=== PATIENT | female | born 1955 | race Caucasian/White ===

== ENCOUNTER 2017-05-01 14:01 | Emergency (ER) | payer OTHER ==
[~2017-05-01] VITALS: Ht 157.5 cm; Wt 72.6 kg
[~2017-05-01 14:01] MED LIST: ALLO100T21 PO; CALC0.5S6 PO; CARV3.122 PO; CLOP75TA PO; ERGO2000 PO; FURO-570 PO; NIFE10SG6 PO; NITR0.4T2 SL; OMEP20TC12 PO; OXYM15SP NS; SIMV40TA1 PO
[2017-05-01 14:14] VITALS: BP 138/66
--- NOTE | 2017-05-01 14:25 | NUR ---
PATIENT PRESENTS TO ED WITH c/o facial swelling 2 wks with fullness sensation to throat--- . PT STATES cath and angio 2 wks ago---full clear speech with no accessory muscle use noted--- . DENIES N/V/D; SKIN IS PINK/WARM/DRY; AAOX4 WITH EVEN AND STEADY GAIT; LUNGS rhonchi to prema bases BL; HR EVEN AND REGULAR; PT DENIES ANY FEVER, CP, SOB, OR COUGH AT THIS TIME; PATIENT STATES PAIN OF 0/10 AT THIS TIME; VSS; PATIENT POSITIONED FOR COMFORT; HOB ELEVATED; BEDRAILS UP X2; BED DOWN. ER MD MADE AWARE OF PT STATUS.
--- NOTE | 2017-05-01 15:48 | NUR ---
blood collected by lab
--- NOTE | 2017-05-01 16:04 | NUR ---
ultrasound at bedside
[2017-05-01 16:05] LABS: BASOPHILS # (AUTO) 0.1 K/uL (0.00-0.22); BASOPHILS % (AUTO) 2.1 % (0.0-2.0); EOSINOPHILS # (AUTO) 0.3 K/uL (0-0.4); EOSINOPHILS % (AUTO) 4.7 % (0.0-4.0); HEMATOCRIT 27.7 % (36-48); HEMOGLOBIN 8.7 g/dL (12.0-16.0); LYMPHOCYTES # (AUTO) 1.4 K/uL (2.5-16.5); LYMPHOCYTES % (AUTO) 22.2 % (20.5-51.1); MEAN CORPUSCULAR HEMOGLOBIN 28 pg (27-31); MEAN CORPUSCULAR HGB CONC 32 g/dL (33-37); MEAN CORPUSCULAR VOLUME 88 fL (80-94); MONOCYTES # (AUTO) 0.6 K/uL (0.8-1.0); MONOCYTES % (AUTO) 10.1 % (1.7-9.3); NEUTROPHILS # (AUTO) 3.8 K/uL (1.8-7.7); NEUTROPHILS % (AUTO) 60.9 % (42.2-75.2); PLATELET COUNT (AUTO) 261 K/uL (140-450); RED BLOOD CELL COUNT(AUTO) 3.15 MIL/uL (4.20-5.40); RED CELL DISTRIBUTION WIDTH 14.9 % (11.6-13.7); WHITE BLOOD COUNT (AUTO) 6.2 K/uL (4.8-10.8)
[2017-05-01 16:08] LABS: ANION GAP 9.9 (8-16); CARBON DIOXIDE 33.4 mmol/L (21-32); CREATININE 2.6 mg/dL (0.6-1.3); POTASSIUM 3.3 mmol/L (3.5-5.1)
[2017-05-01 16:14] LABS: ALBUMIN 3.1 g/dL (3.4-5.0); TOTAL BILIRUBIN 0.2 mg/dL (0.0-1.0)
[2017-05-01 16:49] LABS: CREATINE KINASE MB 0.6 ng/mL (0-3.6)
--- NOTE | 2017-05-01 17:29 | NUR ---
CONTINUES TO WAIT FOR DISPO---DENIES SOB AT THIS TIME
--- NOTE | 2017-05-01 18:10 | NUR ---
SPOKE WITH PT
--- NOTE | 2017-05-01 19:20 | NUR ---
Patient discharged with v/s stable. Written and verbal after care instructions given and explained. Patient alert, oriented and verbalized understanding of instructions. Wheel Chair Assisted with to car. All questions addressed prior to discharge. ID band removed. Patient advised to follow up with PMD. Rx of LASIX 20MG given. Patient educated on indication of medication including possible reaction and side effects. Opportunity to ask questions provided and answered.
[2017-05-01 19:41] VITALS: BP 157/63
== END 2017-05-01 19:20 | disposition home or self-care (01) ==
LOC: MED 14:01
DX: R60.9 Edema, unspecified (principal); I12.0 Hypertensive chronic kidney disease with stage 5 chronic kidney disease or end stage renal disease; E11.22 Type 2 diabetes mellitus with diabetic chronic kidney disease; N18.6 End stage renal disease; R06.00 Dyspnea, unspecified; J45.909 Unspecified asthma, uncomplicated; Z99.2 Dependence on renal dialysis; Z79.899 Other long term (current) drug therapy
CPT/HCPCS: 36415; 71045; 80053; 82550; 82553; 83880; 84484; 85025; 93005; 93970; 99285; Q0092

== ENCOUNTER 2017-05-02 14:07 | Emergency (ER) | payer OTHER ==
[~2017-05-02] VITALS: Ht 154.9 cm; Wt 76.8 kg
[2017-05-02 14:35] VITALS: BP 113/55
--- NOTE | 2017-05-02 16:54 | NUR ---
PT AMBULATED TO BED 11
--- NOTE | 2017-05-02 16:54 | NUR ---
patient amb. to bed #11
--- NOTE | 2017-05-02 17:00 | NUR ---
Pt presents to ED c/o epigastric burning pain 09/25 starting at stomach and radiating up esophagus to throat x1 day. VSS. Positioned in bed for comfort. at bedside for support. ER MD aware. Continue to monitor.
--- NOTE | 2017-05-02 17:10 | NUR ---
Note terry in EDM - 05/02/17 at 1917 by HECTOR Called warehouse production worker brittney. No fluconazole available in [facility] at this time. Pharmacy closed.
--- NOTE | 2017-05-02 19:19 | NUR ---
REPORT RECEIVED FROM ANDRES BOSCH RN
--- NOTE | 2017-05-02 19:25 | NUR ---
REPORT FROM RONAN CAMPOS
--- NOTE | 2017-05-02 19:29 | NUR ---
Hina stewart in [facility] - 05/02/17 at 1953 by BILL REPORT RECEIVED FROM RONAN CAMPOS
[2017-05-02] MEDS ORDERED: LORATADINE 10 MG TAB PO ONE (19:40)
[2017-05-02 20:35] VITALS: BP 138/62
--- NOTE | 2017-05-02 20:36 | NUR ---
Patient discharged with v/s stable. Written and verbal after care instructions given and explained. Patient alert, oriented and verbalized understanding of instructions. Ambulatory with steady gait. All questions addressed prior to discharge. ID band removed. Patient advised to follow up with PMD. Rx of LORATADINE 10MG DAILY given. Patient educated on indication of medication including possible reaction and side effects. Opportunity to ask questions provided and answered.
== END 2017-05-02 20:36 | disposition home or self-care (01) ==
LOC: MED 14:07
DX: R13.10 Dysphagia, unspecified (principal); R07.0 Pain in throat; J45.909 Unspecified asthma, uncomplicated; Z86.73 Personal history of transient ischemic attack (TIA), and cerebral infarction without residual deficits; E11.9 Type 2 diabetes mellitus without complications; K21.9 Gastro-esophageal reflux disease without esophagitis; I10 Essential (primary) hypertension
CPT/HCPCS: 81002; 82948; 99282

== ENCOUNTER 2017-06-01 07:36 | Inpatient (IN) | payer OTHER ==
[~2017-06-01] VITALS: Ht 162.6 cm; Wt 78.0 kg
--- NOTE | 2017-06-01 07:36 | NUR ---
PATIENT PRESENTS TO ED WITH PT BIBA EMS FOR RESP DISTTRESS. PT GIVEN CPAP IN FEILD THEN SWITHCHED TO BIPAP IN ER. PT APPEARS DIAPHORETIC, PALE, COOL TO TOUCH HI FOWLERS TRIPODING 1 WORD SPEECH EDEMA NOTED IN LOWER EXTREMITIES BS 173 . DENIES N/V/D; SKIN IS PINK/WARM/DRY; AAOX4 ; LUNGS DIMISHED PT DENIES ANY FEVER, CP OR COUGH AT THIS TIME; PATIENT STATES PAIN OF 0/10 AT THIS TIME; VSS; PATIENT POSITIONED FOR COMFORT; HOB ELEVATED; BEDRAILS UP X2; BED DOWN. ER MD MADE AWARE OF PT STATUS.
[2017-06-01 07:42] VITALS: BP 193/101
--- NOTE | 2017-06-01 07:57 | NUR ---
CXR AT BEDSIDE
[2017-06-01] MEDS ORDERED: ASPI81EC19 PO (08:12)
[2017-06-01] MEDS ORDERED: CARV6.252 PO (08:12)
[2017-06-01] MEDS ORDERED: LORA10TA19 PO (08:12)
--- NOTE | 2017-06-01 08:12 | NUR ---
ABG RESULTS GIVEN TO VLADIMIR HACKETT. NO NEW ORDERS GIVEN.
[2017-06-01] MEDS ORDERED: SEVE800T6 PO (08:20)
[2017-06-01] MEDS ORDERED: NIFE60TE5 PO (08:20)
[2017-06-01] MEDS ORDERED: VITA1TAB44 PO (08:20)
[2017-06-01] MEDS ORDERED: INSU10SU8 SUBQ (08:20)
[2017-06-01] MEDS ORDERED: ONDANSETRON 4 MG/2 ML VIAL IVP ONE ×2 (08:30→10:30)
[2017-06-01] MEDS ORDERED: ONDANSETRON 4 MG/2 ML VIAL ONE (08:31)
--- NOTE | 2017-06-01 08:38 | NUR ---
marni done at bedside results given to
[2017-06-01] MEDS ORDERED: hydrALAZINE 20 MG/ML VIAL IVP ONE (08:40)
[2017-06-01 08:52] LABS: BASOPHILS # (AUTO) 0.3 K/uL (0.00-0.22); EOSINOPHILS # (AUTO) 0.6 K/uL (0-0.4); EOSINOPHILS % (AUTO) 3.9 % (0.0-4.0); HEMATOCRIT 33.1 % (36-48); HEMOGLOBIN 10.8 g/dL (12.0-16.0); LYMPHOCYTES # (AUTO) 1.4 K/uL (2.5-16.5); LYMPHOCYTES % (AUTO) 9.7 % (20.5-51.1); MEAN CORPUSCULAR HEMOGLOBIN 29 pg (27-31); MEAN CORPUSCULAR HGB CONC 33 g/dL (33-37); MEAN CORPUSCULAR VOLUME 89.3 fL (80-94); MONOCYTES # (AUTO) 0.4 K/uL (0.8-1.0); NEUTROPHILS # (AUTO) 11.5 K/uL (1.8-7.7); NEUTROPHILS % (AUTO) 81.4 % (42.2-75.2); PLATELET COUNT (AUTO) 254 K/uL (140-450); RED BLOOD CELL COUNT(AUTO) 3.71 MIL/uL (4.20-5.40); RED CELL DISTRIBUTION WIDTH 17.2 % (11.6-13.7)
[2017-06-01 09:03] LABS: ALBUMIN 3.6 g/dL (3.4-5.0); ANION GAP 19.7 (8-16); PROTHROMBIN TIME 10.5 secs (10.8-13.4); TOTAL BILIRUBIN 0.3 mg/dL (0.0-1.0)
[2017-06-01 09:07] LABS: WHITE BLOOD COUNT (AUTO) 14.2 K/uL (4.8-10.8)
[2017-06-01 09:08] LABS: POTASSIUM 6.7 mmol/L (3.5-5.1)
[2017-06-01 09:09] LABS: CREATININE 7.2 mg/dL (0.6-1.3)
[2017-06-01] MEDS ORDERED: INSULIN REGULAR, HUMAN 100 UNIT/ML VIAL IV ONE (09:10)
[2017-06-01] MEDS ORDERED: DEXTROSE 50% 50 ML SYR IVP ONE (09:10)
[2017-06-01] MEDS ORDERED: CALCIUM GLUCONATE 10% 1000 MG/10 ML VIAL IVP ONE (09:10)
[2017-06-01] MEDS ORDERED: SODIUM POLYSTYRENE 15 GM/60 ML UDBTL PO ONE (09:15)
[2017-06-01] MEDS ORDERED: FUROSEMIDE 40 MG/4 ML VIAL IVP ONE (09:15)
[2017-06-01] MEDS ORDERED: MORPHINE SULFATE 4 MG/ML SYR IVP ONE (09:20)
--- NOTE | 2017-06-01 10:24 | NUR ---
pt provided urine sample . new meds noted and given ivp. primary iv site infiltated after first ivo med lasik 40 mg. new iv site in right thumb 24 g. iv site flushing withoput issue remainder of meds given ivp through this site. pt remains on bipap
--- NOTE | 2017-06-01 10:29 | NUR ---
rt at bedside
[2017-06-01] MEDS ORDERED: cefTRIAXone 1,000 MG VIAL ONE (10:35)
[2017-06-01] MEDS ORDERED: HYDROcodone/APAP 7.5/325 MG 1 TAB PO PRN (10:50)
[2017-06-01] MEDS ORDERED: ACETAMINOPHEN 325 MG TAB PO PRN (10:50)
[2017-06-01] MEDS ORDERED: DOCUSATE SODIUM 100 MG GELCAP PO PRN (10:50)
[2017-06-01] MEDS ORDERED: ONDANSETRON 4 MG/2 ML VIAL IM/IVP PRN (10:50)
[2017-06-01 10:56] LABS: APPEARANCE,URINE CLEAR (CLEAR); BILIRUBIN,URINE NEGATIVE (NEGATIVE); BLOOD, URINE NEGATIVE (NEGATIVE); COLOR,URINE YELLOW (YELLOW); LEUKOCYTE ESTERASE ,URINE TRACE (NEGATIVE); NITRITE, URINE NEGATIVE (NEGATIVE); PH,URINE 7.5 (5.0-9.0); UGLUCOSE 2+ (NEGATIVE)
--- NOTE | 2017-06-01 11:00 | NUR ---
BRITT MCADAMS'D PER
--- NOTE | 2017-06-01 11:00 | NUR ---
PLACED PT ON NASAL CANNULA WHEN PT VOMITED. PT ON 2 L/M NC. BIPAP ON STANDBY.
--- NOTE | 2017-06-01 11:00 | NUR ---
REMOVED BIPAP MASK--PT VOMITED INTO BASIN BAG LARGE AMOUNT OF FOOD CONTENT---MD NOTIFIED
[2017-06-01 11:03] LABS: RBC,URINE 0-5 (RARE) /HPF (0-5); WBC,URINE 0-5 (RARE) /HPF (0-5)
[2017-06-01] MEDS ORDERED: METOCLOPRAMIDE 10 MG/2 ML INJ VIAL IVP ONE (11:10)
--- NOTE | 2017-06-01 11:30 | NUR ---
PT ADMITS BREATHING EASIER---NO RETRACTIONS NOTED, 3-4 WORDED SPEECH NO TRIPODING---PT VERBALIZING BEING GRATEFUL WILL CONTINUE TO MONITOR FOR ANY RESP CHANGES
--- NOTE | 2017-06-01 12:50 | NUR ---
RECEIVED REPORT FROM ZORAN RAMIREZ RN.PATIENT IS NAURUAN SPEAKER ALERT AND ORIENTEDX3,V/S SP133/67-99% WITH 3L/O2 NC.-71-98.0-20 NO DISTRESS NOTED.RT CHEST DIALYSIS CATH ,RT.HAND IV LINE INTACT AND CLEAN.CALL LINE WITHIN REACH,TO CONTINUE MONITORING,
[2017-06-01 12:57] LABS: CHOL/HDL RATIO 3.5 (1-4.5); FREE T4 (FREE THYROXINE) 1.06 ng/dL (0.76-1.46); MAGNESIUM 3.2 mg/dL (1.8-2.4); PHOSPHORUS 6.7 mg/dL (2.5-4.9); THYROID STIMULATING HORMONE 1.04 uIU/mL (0.34-3.74)
--- NOTE | 2017-06-01 13:00 | NUR ---
CALLED [facility] AND SPOKE WITH NAWAF, STATED PATRICIA LAP MACHINE OPERATOR WILL BE HERE IN AN HOUR TO DO DIALYSIS ON PT.
--- NOTE | 2017-06-01 13:14 | NUR ---
Patient will be admitted to care of . Admited to tele. Will go to room[117. Belongings list completed. Report to [sidney rn].
[2017-06-01] MEDS ORDERED: NITROGLYCERIN 0.4 MG TAB SL PRN (13:55)
--- NOTE | 2017-06-01 14:58 | NUR ---
UNABLE TO DO ECHO AT THIS TIME. PT IS GETTING DIALYSIS; WILL PERFORM ECHO TOMORROW.
[2017-06-01] MEDS ORDERED: CYCLOBENZAPRINE 10 MG TAB PO PRN (15:10)
--- NOTE | 2017-06-01 15:18 | NUR ---
PATIENT ON DIALYSIS NO DISTRESS.LYING IN BED HOB,V/S STABLE. WILL CONTINUE TO MONITORING.
[2017-06-01] MEDS: SEVELAMER CARBONATE 800 MG TAB PO SCH (16:31)
[2017-06-01 17:30] VITALS: BP 144/89
[2017-06-01] MEDS ORDERED: DEXTROSE 50% 50 ML SYR IVP PRN (18:20)
[2017-06-01] MEDS: NACL 0.9% 1,000 ML IV SCH ×2 (18:30→20:00)
--- NOTE | 2017-06-01 18:45 | NUR ---
HD FINISHED BY PATRICIA FERRARO,3.8L FLUID OUT.PATIENT TOLERATED WELL PROCEDURE.ALERT AND ORIENTED X3 LYING IN BED NO SOB AND DISTRESS.CALL LIGHT WITHIN REACH, WILL CONTINUE MONITORING.
[2017-06-01] MEDS: CARVEDILOL 6.25 MG TAB PO SCH (19:00)
--- NOTE | 2017-06-01 19:30 | NUR ---
RECEIVED PT REPORT FROM DAY SHIFT NURSE YIFAN AT BEDSIDE FOR CONTINUITY OF CARE. AAOX4. JUST FINISHED DIALYSIS 3.8 L OUTPUT. NO S/S OF DISTRESS. NO SOB. PT IS ON 3L NC. RIGHT UPPER CHEST FLAVIA CATH NOTED. IV SITE RIGHT THUMB 24G. NS 20ML/HR. SCD NOTED. PLAN OF CARE DISCUSSED WITH PATIENT PT VERBALIZED UNDERSTANDING. BED LOWERED. CALL LIGHT WITHIN REACH. WILL CONTINUE TO MONITOR.
[2017-06-01 20:00] VITALS: BP 142/61
[2017-06-01] MEDS: INSULIN LISPRO SLIDING SCALE 100 UNITS/ML VIAL SUBQ PRN (20:34)
[2017-06-01] MEDS: INSULIN NPH HUM/REG INSULIN HM 100 UNIT/ML 10 ML VIAL SUBQ SCH (20:36)
[2017-06-01] MEDS: BLOOD GLUCOSE MONITORING 1 DEV DEV FS SCH (20:42)
[2017-06-01] MEDS ORDERED: SIMVASTATIN 40 MG TAB PO SCH (21:00)
[2017-06-01] MEDS ORDERED: CLOPIDOGREL 75 MG TAB PO SCH (21:00)
--- NOTE | 2017-06-01 21:00 | NUR ---
PATIENT GIVEN MEDS. ALSO PT ONLY ATE 30% OF DINNER AND GAVE HER TEA AND ABDELRAHMAN CRACKERS. PT IS TIRED AND RESTING. WILL CONTINUE TO MONITOR.
[2017-06-02] VITALS (7 sets, daily range): BP systolic 102–138; BP diastolic 46–78
--- NOTE | 2017-06-02 | NUR ---
PATIENT ASKED FOR BEDPAN. BUT NO BM OR URINE. WILL CONTINUE TO MONITOR.
--- NOTE | 2017-06-02 00:36 | NUR ---
CHANGED LINEN. PT RESTING WILL CONTINUE TO MONITOR.
--- NOTE | 2017-06-02 02:26 | NUR ---
ASSESSED PT. PT SLEEPING AT THIS TIME. NO SOB. NO S/S OF DISTRESS. WILL CONTINUE TO MONITOR.
[2017-06-02] MEDS: NACL 0.9% 1,000 ML IV SCH (03:28)
--- NOTE | 2017-06-02 04:00 | NUR ---
PT ASLEEP. NO SOB. NO S/S OF DISTRESS. WILL CONTINUE TO MONITOR.
--- NOTE | 2017-06-02 05:30 | NUR ---
IV NOT INFUSING IN THUMB. STARTED NEW IV 22G RFA. WILL CONTINUE TO MONITOR.
[2017-06-02 06:18] LABS: T4 (THYROXINE) 7.4 ug/dL (4.5-12.0)
[2017-06-02] MEDS: BLOOD GLUCOSE MONITORING 1 DEV DEV FS SCH ×3 (06:28→16:56)
[2017-06-02] MEDS ORDERED: PANTOPRAZOLE 40 MG TABEC PO SCH (06:30)
--- NOTE | 2017-06-02 07:21 | NUR ---
RECEIVED REPORT FROM REED PRESS FEEDER.PATIENT STABLE CONDITION.WILL CONTINUE MONITORING.
--- NOTE | 2017-06-02 07:21 | NUR ---
GAVE REPORT TO DAY SHIFT NURSE AT BEDSIDE FOR CONTINUITY OF CARE. PT ASLEEP. NO SOB. NO S/S OF DISTRESS.
[2017-06-02 07:25] LABS: MAGNESIUM 2.1 mg/dL (1.8-2.4); PHOSPHORUS 6.7 mg/dL (2.5-4.9)
[2017-06-02 07:30] LABS: BASOPHILS # (AUTO) 0.2 K/uL (0.00-0.22); BASOPHILS % (AUTO) 2.7 % (0.0-2.0); EOSINOPHILS # (AUTO) 0.5 K/uL (0-0.4); EOSINOPHILS % (AUTO) 6.6 % (0.0-4.0); HEMOGLOBIN 9.6 g/dL (12.0-16.0); LYMPHOCYTES # (AUTO) 1.6 K/uL (2.5-16.5); MEAN CORPUSCULAR HEMOGLOBIN 29 pg (27-31); MEAN CORPUSCULAR HGB CONC 32 g/dL (33-37); MEAN CORPUSCULAR VOLUME 88.5 fL (80-94); MONOCYTES # (AUTO) 0.6 K/uL (0.8-1.0); MONOCYTES % (AUTO) 8.1 % (1.7-9.3); NEUTROPHILS # (AUTO) 4.9 K/uL (1.8-7.7); NEUTROPHILS % (AUTO) 62.6 % (42.2-75.2); PLATELET COUNT (AUTO) 267 K/uL (140-450); RED BLOOD CELL COUNT(AUTO) 3.39 MIL/uL (4.20-5.40); RED CELL DISTRIBUTION WIDTH 16.6 % (11.6-13.7); WHITE BLOOD COUNT (AUTO) 7.8 K/uL (4.8-10.8)
[2017-06-02 07:31] LABS: ANION GAP 14.8 (8-16); CARBON DIOXIDE 27.8 mmol/L (21-32); POTASSIUM 4.6 mmol/L (3.5-5.1)
[2017-06-02 07:35] LABS: CREATININE 4.7 mg/dL (0.6-1.3)
[2017-06-02] MEDS ORDERED: NIFEdipine 60 MG TABER PO SCH (09:00)
[2017-06-02] MEDS ORDERED: LORATADINE 10 MG TAB PO SCH (09:00)
[2017-06-02] MEDS ORDERED: LACTOBACILLUS RHAMNOSUS GG 1 EACH CAP PO SCH (09:00)
[2017-06-02] MEDS ORDERED: VIT-B COMP/VIT-C/FOLIC ACID 1 TAB PO SCH (09:00)
[2017-06-02] MEDS ORDERED: ECOTRIN 81 MG TABEC PO SCH (09:00)
[2017-06-02] MEDS ORDERED: FUROSEMIDE 40 MG TAB PO SCH (09:00)
[2017-06-02] MEDS ORDERED: cefTRIAXone 1,000 MG VIAL ONE (09:42)
[2017-06-02] MEDS: SEVELAMER CARBONATE 800 MG TAB PO SCH ×2 (09:51→12:44)
[2017-06-02] MEDS: CARVEDILOL 6.25 MG TAB PO SCH (09:51)
[2017-06-02] MEDS: INSULIN NPH HUM/REG INSULIN HM 100 UNIT/ML 10 ML VIAL SUBQ SCH (10:00)
--- NOTE | 2017-06-02 10:03 | NUR ---
PATIENT HAS BEEN SCREENED AND CATEGORIZED MODERATE NUTRITION RISK. PATIENT WILL BE SEEN WITHIN 3-5 DAYS OF ADMISSION. 06/05/17 - 06/07/[address]
--- NOTE | 2017-06-02 10:04 | NUR ---
CM NOTE PER MAN ANIMAL ATTENDANTS AND TRAINERS KANA # [phone], THEY ARE AWARE OF THIS PATIENT BEING ADMITTED TO OUR HOS[facility]ITAL AND THE ASSIGNED BILINGUAL INSIDE SALES REPRESENTATIVE IS FRANDY. PER KANA, SEND REVIEWS TO [phone]. I ALSO GAVE KANA THE ATTENDING PHYSICIAN'S CONTACT NUMBER AND THE NUMBER TO THE NURSING STATION WHERE PATIENT IS. INITIAL REVIEW FAXED TO [phone] # [phone].
--- NOTE | 2017-06-02 12:00 | NUR ---
PATIENT WITH FAMILY STABLE CONDITION.NO DISTRESS.WILL CONTINUE MONITORING.
[2017-06-02] MEDS: INSULIN LISPRO SLIDING SCALE 100 UNITS/ML VIAL SUBQ PRN (12:24)
--- NOTE | 2017-06-02 14:33 | NUR ---
NOTIFIED RN THAT PATIENT NEEDS TO BE PLACED ON A RENAL DIET IN ADDITION TO CARDIAC AND CCHO [address] GM [address]ET[address]
--- NOTE | 2017-06-02 16:13 | NUR ---
BS 66 NO S/S HYPOGLYCEMIA.ENCOURAGE TO DRINK JUICE OR SUGAR.ALERT AND ORIENTEDX3,FAMILY AT BEDSIDE.NO DISTRESS.WILL CONTINUE MONITORING BS.
--- NOTE | 2017-06-02 19:50 | NUR ---
PT DISCHARGE TO HOME WITH FAMILY BY AMBULATE.ALERT AND ORIENTEDX3,STABLE CONDITION.PT ABLE TO SIGN TO DC PAPER WORK.GIVE DC INSTRUCTION MEDS,F/U APPOINTMENT,DM MANAGEMENT AND STANDARD PRECAUTION.DAUGHTER VERBALIZE UNDERSTANDING.
--- NOTE | 2017-06-04 15:28 | NUR ---
ESAU NOTE DISCHARGE SUMMARY FAXED TO [facility] / FAX# [phone]
== END 2017-06-02 19:46 | disposition home or self-care (01) | DRG 871 ==
LOC: MED 07:36 → MTU 10:52
PROVIDERS: ADMIT Family Medicine Sports Medicine; ATTEND Family Medicine Sports Medicine
PROC: 5A1D70Z Performance of Urinary Filtration, Intermittent, Less than 6 Hours Per Day (ICD-10-PCS; principal; 2017-05-31)
PROC: 5A09357 Assistance with Respiratory Ventilation, Less than 24 Consecutive Hours, Continuous Positive Airway Pressure (ICD-10-PCS; 2017-06-01)
DX: A41.9 Sepsis, unspecified organism (principal); N17.0 Acute kidney failure with tubular necrosis; J96.00 Acute respiratory failure, unspecified whether with hypoxia or hypercapnia; I13.2 Hypertensive heart and chronic kidney disease with heart failure and with stage 5 chronic kidney disease, or end stage renal disease; E11.22 Type 2 diabetes mellitus with diabetic chronic kidney disease; D68.69 Other thrombophilia; E11.65 Type 2 diabetes mellitus with hyperglycemia; N18.6 End stage renal disease; I50.43 Acute on chronic combined systolic (congestive) and diastolic (congestive) heart failure; N39.0 Urinary tract infection, site not specified; E11.69 Type 2 diabetes mellitus with other specified complication; I16.0 Hypertensive urgency; E87.5 Hyperkalemia; K21.9 Gastro-esophageal reflux disease without esophagitis; M54.9 Dorsalgia, unspecified; J30.2 Other seasonal allergic rhinitis; D50.9 Iron deficiency anemia, unspecified; Z99.2 Dependence on renal dialysis; E83.39 Other disorders of phosphorus metabolism; I44.7 Left bundle-branch block, unspecified; I25.10 Atherosclerotic heart disease of native coronary artery without angina pectoris; Z95.5 Presence of coronary angioplasty implant and graft; Z83.3 Family history of diabetes mellitus; Z79.82 Long term (current) use of aspirin; Z79.4 Long term (current) use of insulin; Z91.09 Other allergy status, other than to drugs and biological substances
CPT/HCPCS: 36415; 36600; 71045; 80048; 80053; 81001; 82150; 82550; 82803; 82948; 83036; 83605; 83690; 83735; 83880; 84100; 84436; 84439; 84443; 84479; 84484; 85025; 85610; 85730; 87040; 87081; 87086; 90935; 93005; 93925; 93970; 96365; 96375; 96376; 99285; J0360; J0610; J0696; J1815; J1940; J2270; J2405; J2765; J7030; J7060; Q0092

== ENCOUNTER 2017-07-08 20:50 | Emergency (ER) | payer OTHER ==
[~2017-07-08] VITALS: Ht 157.5 cm; Wt 68.0 kg
[~2017-07-08 20:50] MED LIST changes: -ALLO100T21 PO; +ASPI81EC19 PO; -CALC0.5S6 PO; -CARV3.122 PO; +CARV6.252 PO; +INSU10SU8 SUBQ; +LORA10TA19 PO; -NIFE10SG6 PO; +NIFE60TE5 PO; -OXYM15SP NS; +SEVE800T6 PO; +VITA1TAB44 PO
[2017-07-08 20:52] VITALS: BP 154/82
[2017-07-08] MEDS: MORPHINE SULFATE 4 MG/ML SYR IVP ONE (21:59)
[2017-07-08] MEDS: ONDANSETRON 4 MG/2 ML VIAL IVP ONE (22:00)
[2017-07-08 22:27] LABS: BASOPHILS % (AUTO) 0.5 % (0.0-2.0); EOSINOPHILS # (AUTO) 0.4 K/uL (0-0.4); EOSINOPHILS % (AUTO) 4.6 % (0.0-4.0); HEMATOCRIT 30.2 % (36-48); HEMOGLOBIN 9.6 g/dL (12.0-16.0); LYMPHOCYTES # (AUTO) 1.7 K/uL (2.5-16.5); MEAN CORPUSCULAR HEMOGLOBIN 29 pg (27-31); MEAN CORPUSCULAR HGB CONC 32 g/dL (33-37); MEAN CORPUSCULAR VOLUME 89.4 fL (80-94); MONOCYTES # (AUTO) 0.5 K/uL (0.8-1.0); MONOCYTES % (AUTO) 6.2 % (1.7-9.3); NEUTROPHILS # (AUTO) 5.5 K/uL (1.8-7.7); NEUTROPHILS % (AUTO) 67.7 % (42.2-75.2); PLATELET COUNT (AUTO) 237 K/uL (140-450); RED BLOOD CELL COUNT(AUTO) 3.38 MIL/uL (4.20-5.40); WHITE BLOOD COUNT (AUTO) 8.1 K/uL (4.8-10.8)
[2017-07-08 22:44] LABS: CARBON DIOXIDE 32.9 mmol/L (21-32); CHOL/HDL RATIO 3.7 (1-4.5); CREATININE 3.1 mg/dL (0.6-1.3); POTASSIUM 3.9 mmol/L (3.5-5.1)
[2017-07-08 22:50] LABS: ALBUMIN 3.2 g/dL (3.4-5.0); TOTAL BILIRUBIN 0.3 mg/dL (0.0-1.0)
[2017-07-08 23:02] LABS: CREATINE KINASE MB 1.3 ng/mL (0-3.6)
[2017-07-08 23:54] VITALS: BP 144/63
== END 2017-07-08 23:54 | disposition home or self-care (01) ==
LOC: MED 20:50
DX: E11.22 Type 2 diabetes mellitus with diabetic chronic kidney disease (principal); I12.0 Hypertensive chronic kidney disease with stage 5 chronic kidney disease or end stage renal disease; N18.6 End stage renal disease; K21.9 Gastro-esophageal reflux disease without esophagitis; Z86.73 Personal history of transient ischemic attack (TIA), and cerebral infarction without residual deficits; Z88.8 Allergy status to other drugs, medicaments and biological substances
CPT/HCPCS: 36415; 71045; 80053; 80061; 82550; 82553; 82948; 83880; 84484; 85025; 85379; 93005; 96374; 96375; 99285; J2270; J2405

== ENCOUNTER 2017-08-05 03:13 | Inpatient (IN) | payer OTHER ==
[~2017-08-05] VITALS: Ht 157.5 cm; Wt 72.6 kg
[2017-08-05] VITALS (15 sets, daily range): BP systolic 131–164; BP diastolic 57–102
[~2017-08-05 03:13] MED LIST changes: +ASPI81CT89 PO; +CLOP75TA26 PO; +LIP80 PO; +METO25TA14 PO
--- NOTE | 2017-08-05 03:13 | NUR ---
62/F BIBA FROM HOME. PER FIRE, PT WAS FOUND SITTING WITH SOB [id number], COOL, PALE, DIAPHORETIC, SPO2 56% ON ROOM AIR, PT PLACED ON NONREBREATHER THEN CPAP WITH LITTLE IMPROVEMENT. UPON ARRIVAL TO AMBULANCE, PT BECAME UNRESPONSIVE, PT WAS VENTILATED WITH AMBUBAG. PER FIRE, PT IS KNOWN TO REFUSE TO CALL FOR MEDICAL CARE UNTIL HER CONDITION IS CRITICAL. PT ARRIVES IN ED WITH PULSE, BREATHING ON HER OWN. PT PLACED ON MONITOR. HX DM, ESRD ON HD, DIALYSIS CATH ON R UPPER CHEST. PER FIRE, LAST DIALYSIS 3 DAYS AGO. RT AT BEDSIDE TO CONTINUE BAGGING. DR DAVISON AT BEDSIDE TO EVALUATE PT.
[2017-08-05] MEDS ORDERED: cefTRIAXone 1,000 MG in DEXT 5% MINI-BAG PLUS 50 ML IV ONE (03:30)
[2017-08-05] MEDS ORDERED: NACL 0.9% 1,000 ML IV ONE ×2 (03:30→04:25)
--- NOTE | 2017-08-05 03:30 | NUR ---
PT PLACED ON BIPAP. PER DR DAVISON, SHRIMP PEELING MACHINE OPERATOR ABLE TO INSERT ON UPPER BODY, SUCCESSFUL INSERTION 20G ON L UPPER CHEST AND 22G ON RUQ. PT MILDLY RESPONSIVE AT THIS TIME, VS NOTED, SPO2 100% ON BIPAP, RR 28, HR 94, BP 161/78. BS 321.
[2017-08-05] MEDS ORDERED: cefTRIAXone 1,000 MG VIAL ONE (03:37)
[2017-08-05 03:57] LABS: BASOPHILS # (AUTO) 0.1 K/uL (0.00-0.22); BASOPHILS % (AUTO) 0.7 % (0.0-2.0); EOSINOPHILS # (AUTO) 0.4 K/uL (0-0.4); EOSINOPHILS % (AUTO) 4.9 % (0.0-4.0); HEMATOCRIT 43.1 % (36-48); HEMOGLOBIN 13.7 g/dL (12.0-16.0); LYMPHOCYTES # (AUTO) 4.2 K/uL (2.5-16.5); LYMPHOCYTES % (AUTO) 47.2 % (20.5-51.1); MEAN CORPUSCULAR HEMOGLOBIN 27 pg (27-31); MEAN CORPUSCULAR HGB CONC 32 g/dL (33-37); MEAN CORPUSCULAR VOLUME 85.5 fL (80-94); MONOCYTES # (AUTO) 0.3 K/uL (0.8-1.0); MONOCYTES % (AUTO) 3.6 % (1.7-9.3); NEUTROPHILS # (AUTO) 3.9 K/uL (1.8-7.7); NEUTROPHILS % (AUTO) 43.6 % (42.2-75.2); PLATELET COUNT (AUTO) 218 K/uL (140-450); RED BLOOD CELL COUNT(AUTO) 5.05 MIL/uL (4.20-5.40); RED CELL DISTRIBUTION WIDTH 16.2 % (11.6-13.7); WHITE BLOOD COUNT (AUTO) 8.9 K/uL (4.8-10.8)
[2017-08-05 04:14] LABS: ALBUMIN 3.5 g/dL (3.4-5.0); ANION GAP 23.1 (8-16); CARBON DIOXIDE 21.3 mmol/L (21-32); POTASSIUM 4.4 mmol/L (3.5-5.1); TOTAL BILIRUBIN 0.2 mg/dL (0.0-1.0)
[2017-08-05 04:16] LABS: PROTHROMBIN TIME 10.4 secs (10.8-13.4)
[2017-08-05 04:22] LABS: APPEARANCE,URINE CLEAR (CLEAR); BILIRUBIN,URINE NEGATIVE (NEGATIVE); BLOOD, URINE TRACE-I (NEGATIVE); COLOR,URINE YELLOW (YELLOW); LEUKOCYTE ESTERASE ,URINE 2+ (NEGATIVE); NITRITE, URINE NEGATIVE (NEGATIVE); PH,URINE 7.5 (5.0-9.0); UGLUCOSE 2+ (NEGATIVE)
[2017-08-05 04:24] LABS: CREATININE 7.4 mg/dL (0.6-1.3)
[2017-08-05 04:31] LABS: RBC,URINE 0-5 (RARE) /HPF (0-5); WBC,URINE 16-25 (MOD) /HPF (0-5)
--- NOTE | 2017-08-05 04:55 | NUR ---
PT SLEEPING COMFORTABLY IN BED, AROUSABLE TO NAME, SPO2 100% ON BIPAP, RR 22 EVEN AND UNLABORED. ALL NEEDS MET AT THIS TIME.
[2017-08-05] MEDS ORDERED: NIFE60TE5 PO (05:32)
[2017-08-05] MEDS ORDERED: CLOP75TA26 PO (05:32)
[2017-08-05] MEDS ORDERED: ASPI-1677 PO (05:32)
[2017-08-05] MEDS ORDERED: METO25TA PO (05:32)
[2017-08-05] MEDS ORDERED: LIP80 PO (05:32)
[2017-08-05] MEDS ORDERED: INSU10SU8 SUBQ (05:36)
--- NOTE | 2017-08-05 05:42 | NUR ---
PT RESTING IN BED, AOX4, RESPONSIVE WITH GENERALIZED WEAKNESS, RT AT BEDSIDE, SPO2 100% ON BIPAP 70% FIO2, RR 28 EVEN AND UNLABORED. ALL NEEDS MET AT THIS TIME.
[2017-08-05] MEDS ORDERED: DOCUSATE SODIUM 100 MG GELCAP PO PRN (05:50)
[2017-08-05] MEDS ORDERED: ACETAMINOPHEN 325 MG TAB PO PRN (05:50)
[2017-08-05] MEDS ORDERED: ALBUTEROL SULFATE/IPRATROPIU 3 ML SOL IH PRN (06:00)
[2017-08-05] MEDS ORDERED: MORPHINE SULFATE 4 MG/ML SYR IVP ONE (06:05)
[2017-08-05] MEDS ORDERED: FUROSEMIDE 40 MG/4 ML VIAL IVP SCH (06:15)
[2017-08-05] MEDS ORDERED: ONDANSETRON 4 MG/2 ML VIAL IVP ONE (06:20)
[2017-08-05 06:35] LABS: BARBITURATE, URINE NEG. ng/ml (NEG <=200); BENZODIAZEPINE, URINE NEG. ng/mL (NEG <=200); CANNABINOID, URINE NEG. ng/mL (NEG <=50); COCAINE, URINE NEG. ng/mL (NEG <=300); OPIATE, URINE NEG. ng/mL (NEG <=2000); PHENCYCLIDINE SCREEN,URINE NEG. ng/mL (NEG <=25)
[2017-08-05] MEDS: NACL 0.9% 1,000 ML IV SCH (06:36)
[2017-08-05 06:47] LABS: CHOL/HDL RATIO 4.3 (1-4.5); FREE T4 (FREE THYROXINE) 0.92 ng/dL (0.76-1.46); MAGNESIUM 2.8 mg/dL (1.8-2.4); PHOSPHORUS 8.2 mg/dL (2.5-4.9); THYROID STIMULATING HORMONE 4.42 uIU/mL (0.34-3.74)
[2017-08-05] MEDS: ALBUTEROL SULFATE/IPRATROPIU 3 ML SOL IH SCH ×3 (06:48→19:05)
--- NOTE | 2017-08-05 06:50 | NUR ---
RECEIVED PT ON VISION BIPAP ON ST 14\6 RR14 FIO2 70 ALARMS ARE ON AND AUDIBLE BMV HOB PT IN HF AWAKE WEARING F\F MASK BS EXP WHEEZE HHN GIVEN I\L WITH 3MG DUONEB GEL UNDER MASK SIZE MED
--- NOTE | 2017-08-05 06:58 | NUR ---
UNABLE TO OBTAIN ABG AT THIS TIME DECREASE FIO2 TO 50 SPO2 IS 100
--- NOTE | 2017-08-05 07:15 | NUR ---
PT BIB ER NURSE VIA [place]. PT A/O X4, VERBALIZES NEEDS. MALAYSIAN SPEAKING BUT UNDERSTANDS EGYPTIAN ALSO. KEPT PT ON BEDSIDE MONITOR. SKIN DRY AND WARM TO TOUCH. PUPILS REACTIVE TO LIGHT. LUNGS SOUND DIMINISHED ON AUSCULTATION. ON FACE MASK 6 LTR/MIN. PERIPHERAL LINE ON LEFT UPPER CHEST 20G, RUQ 22G AND LEFT RING FINGER 24G, INTACT. NS RUNNING AT 10 ML/HR. ABDOMEN SOFT, ROUND AND NON-TENDER. ACTIVE BOWEL SOUND. EDEMATOUS UPPER AND LOWER EXTREMITIES, NON-PITTING. ABRASIONS NOTED ON RIGHT FOOT DORSAL PART, RIGHT 2ND TOE, LEFT 2ND TOE, AND LEFT 3RD TOE. RIGHT BIG TOE AMPUTEE. DENIES PAIN, N/V AT THIS TIME. KEPT PT ON COMFORTABLE POSITION. HOB ELEVATED, BED IN LOW POSITION LOCKED. CALL LIGHT WITHIN REACH. WILL CONTINUE TO MONITOR. Addendum: 08/05/17 at 1223 by Yolanda Booth RN LEFT GREAT TOE INSTEAD OF RIGHT GREAT TOE. PERMA CATH IN RIGHT UPPER CHEST. DRESSING INTACT.
--- NOTE | 2017-08-05 07:20 | NUR ---
Patient will be admitted to care of DR. NUNEZ. Admited to ICU. Will go to room 2. Belongings list completed. Report to RONAN MITCHELL AT BEDSIDE.
--- NOTE | 2017-08-05 07:56 | NUR ---
SEEN BY DR. ANGLIN AND GROUP. WILL FOLLOW UP ON ORDER.
[2017-08-05] MEDS ORDERED: DEXTROSE 50% 50 ML SYR IVP PRN (08:05)
--- NOTE | 2017-08-05 08:39 | NUR ---
PT RESTING IN BED COMFORTABLY. NO ACUTE RESPIRATORY DISTRESS. VS WNL. CONTINUOUS ON BIPAP.
--- NOTE | 2017-08-05 08:43 | NUR ---
DECREASED FIO2 TO 30
--- NOTE | 2017-08-05 08:47 | NUR ---
PATIENT HAS BEEN SCREENED AND CATEGORIZED MODERATE NUTRITION RISK. PATIENT WILL BE SEEN WITHIN 3-5 DAYS OF ADMISSION. 08/07/17 08/09/[address] Addendum: 08/05/17 at [address] PATIENT HAS BEEN RE-SCREENED AND RE-CATEGORIZED HIGH NUTRITIONAL RISK DUE TO [facility] REFERRAL FOR NUTRITION EDUCATION . PATIENT WILL BE SEEN 08/06/[address]
[2017-08-05] MEDS: NIFEdipine 60 MG TABER PO SCH (09:00)
[2017-08-05] MEDS ORDERED: ATORVASTATIN 80 MG TAB PO SCH (09:00)
[2017-08-05] MEDS: METOPROLOL 25 MG TAB PO SCH ×2 (09:00→20:46)
[2017-08-05] MEDS: INSULIN NPH HUM/REG INSULIN HM 100 UNIT/ML 10 ML VIAL SUBQ SCH ×2 (09:11→20:49)
[2017-08-05] MEDS: CLOPIDOGREL 75 MG TAB PO SCH (09:16)
[2017-08-05] MEDS: ATORVASTATIN 80 MG TAB PO SCH (09:16)
[2017-08-05] MEDS: ECOTRIN 81 MG TABEC PO SCH (09:17)
--- NOTE | 2017-08-05 09:18 | NUR ---
HELD LOPRESSOR AND ADALAT. PT IS GOING TO HAVE DIALYSIS. DR. BELL MADE AWARE.
[2017-08-05] MEDS: BLOOD GLUCOSE MONITORING 1 DEV DEV FS SCH ×3 (11:28→20:40)
--- NOTE | 2017-08-05 11:57 | NUR ---
PT SEEN BY DR. BECKER. WILL FOLLOW UP ON ORDER.
[2017-08-05] MEDS: ONDANSETRON 4 MG/2 ML VIAL IVP PRN ×2 (12:10→18:32)
--- NOTE | 2017-08-05 12:42 | NUR ---
PT ON DIALYSIS. NO ACUTE RESPIRATORY DISTRESS. VS WNL. PT ON BEDSIDE MONITOR. DIALYSIS NURSE AT BEDSIDE.
--- NOTE | 2017-08-05 12:52 | NUR ---
Clinical review faxed to Melinda at [phone]
--- NOTE | 2017-08-05 13:14 | NUR ---
pt unable to produce sputum at this time
[2017-08-05] MEDS: HYDROcodone/APAP 7.5/325 MG 1 TAB PO PRN (14:00)
--- NOTE | 2017-08-05 14:42 | NUR ---
PT C/O CRAMPING ON LEFT UPPER CHEST. DR. BECKER MADE AWARE. SAID TO STOP DIALYSIS.
--- NOTE | 2017-08-05 14:44 | NUR ---
STOPPED DIALYSIS BY DIALYSIS NURSE. PT ALERT, VS WNL. WILL CONTINUE TO MONITOR.
--- NOTE | 2017-08-05 15:21 | NUR ---
PLACED PT ON 2L N\C SPO2 98
--- NOTE | 2017-08-05 16:22 | NUR ---
PT SEEN BY DR. SIMMS. WILL FOLLOW UP ON ORDER.
[2017-08-05] MEDS: LEVOFLOXACIN 250 MG/D5 PREMIX 50 ML IV SCH (16:29)
--- NOTE | 2017-08-05 16:33 | NUR ---
PT APPEARS TO BE RELAXED IN BED, WATCHING TV. PT DENIES CHEST PAIN AT THIS TIME.
[2017-08-05] MEDS ORDERED: PNEUMOCOCCAL VACCINE 23 MCG/0.5 ML VIAL IMVAC SCH (17:00)
--- NOTE | 2017-08-05 17:47 | NUR ---
PT EATING DINNER AT THIS TIME.
--- NOTE | 2017-08-05 19:27 | NUR ---
REPORT GIVEN TO METAL TRIM ERECTOR RN FOR CONTINUITY OF CARE. PT ON STABLE CONDITION.
--- NOTE | 2017-08-05 19:35 | NUR ---
RECEIVED REPORT FROM MORNING SHIFT RN. AFEBRILE. PT IS LETHARGIC, AOX4, ABLE TO RESPOND TO COMMANDS AND MAKE NEEDS KNOWN. SKIN IS INTACT, WITH RIGHT UPPER CHEST CATHETER FOR DIALYSIS. PT DENIES PAIN BUT COMPLAINS OF NAUSEA. CLEAR LUNG SOUNDS BILATERAL. BOWEL SOUND ACTIVE UPON AUSCULTATION. ON PERSONAL CONSULTANT WITH LEFT BBB. 22 GAUGE PERIPHERAL IV ON LEFT FOREARM INFUSING SODIUM CHLORIDE 10MLS/HR. BED IN LOWEST POSITION, HOB ELEVATED ABOVE 30DEG. CALL LIGHT WITHIN REACH. WILL CONTINUE TO MONITOR.
--- NOTE | 2017-08-05 21:06 | NUR ---
O2SAT DROPPING TO 87-88% PLACED ON 2L N/C O2SAT INCREASED 97%.
[2017-08-06] VITALS (8 sets, daily range): BP systolic 108–151; BP diastolic 48–75
--- NOTE | 2017-08-06 00:28 | NUR ---
PT REPOSITIONED LYING ON LEFT SIDE WITH PILLOW SUPPORT PROVIDED; SLEEPING QUIETLY. ICE PACK/COOLING MEASURES REMOVED.
--- NOTE | 2017-08-06 00:55 | NUR ---
PT O2 SAT IS AT 100%, REMOVED OXYGEN & PT IS CURRENTLY ON ROOM AIR.
[2017-08-06] MEDS: ONDANSETRON 4 MG/2 ML VIAL IVP PRN ×3 (01:53→23:54)
--- NOTE | 2017-08-06 02:00 | NUR ---
PT AWAKE FROM SLEEPING, REPORTED FEELINGS OF NAUSEA, ZOFRAN ADMINISTERED & PT REPOSITIONED, PILLOW SUPPORT PROVIDED. WILL CONTINUE TO MONITOR.
--- NOTE | 2017-08-06 04:05 | NUR ---
BED BATH, FRESH LINENS AND PILLOW PROVIDED; REPOSITIONED TO SUPINE POSITION. PT CURRENTLY ON ROOM AIR O2SAT 94-97%. DENIES PAIN, NO S/SX OF N/V. HOB ABOVE 30DEG IN LOWEST POSITION. CALL LIGHT WITHIN REACH. WILL CONTINUE TO MONITOR.
[2017-08-06] MEDS: NACL 0.9% 1,000 ML IV SCH (05:50)
--- NOTE | 2017-08-06 06:57 | NUR ---
NOTIFIED RICKI MOISE VIA [employer]IC[employer] AT [phone] TO SIGN PAPERWORK/CONSENT.
[2017-08-06] MEDS: BLOOD GLUCOSE MONITORING 1 DEV DEV FS SCH ×4 (07:21→21:12)
--- NOTE | 2017-08-06 07:23 | NUR ---
PROVIDED BEDSIDE REPORT TO ONCOMING SHIFT RN FOR CONTINUITY OF CARE.
--- NOTE | 2017-08-06 07:24 | NUR ---
RECEIVED REPORT FROM GOLF BALL INSPECTOR NURSE AT BEDSIDE, PT IS AAOX4, SAMI SPEAKING, ABLE TO FOLLOW COMMANDS AND MAKE NEEDS KNOWN, NO S/S OF DISTRESS, CLEAR LUNG SOUNDS HILL. ON RA, DENIES CHEST PAIN, SR/BBB ON TELE MONITOR, PERMA CATH TO RIGHT UPPER CHEST, COVERED WITH DRESSING. SOFT ABDOMEN WITH ACTIVE BOWEL SOUNDS, CONTINENT B&B, ABLE TO MOVE ALL EXTREMITIES. IV SITE TO LEFT FOREARM, 22GA, PATENT AND SL. SKIN IS WARM AND DRY TO TOUCH, LEFT GREAT TOE AMPUTATION NOTED, (SEE WOUND ASSESSMENT), VSS, DENIES PAIN, HOB ELEVATED 30 DEGREES, SAFETY MEASURES IN PLACE, CALL LIGHT WITHIN REACH, WILL CONTINUE TO MONITOR.
[2017-08-06] MEDS: ALBUTEROL SULFATE/IPRATROPIU 3 ML SOL IH SCH ×3 (07:25→19:37)
--- NOTE | 2017-08-06 08:00 | NUR ---
PT TRIED TO EXPECTORATE SPUTUM AT THIS TIME POST HHN PT STATES UNABLE SAYS SHE IS DRY RN BEDSIDE CUP AT BEDSIDE PT AWARE
[2017-08-06 08:24] LABS: T4 (THYROXINE) 6.4 ug/dL (4.5-12.0)
[2017-08-06] MEDS: INSULIN NPH HUM/REG INSULIN HM 100 UNIT/ML 10 ML VIAL SUBQ SCH ×2 (09:00→21:10)
--- NOTE | 2017-08-06 09:10 | NUR ---
RECEIVED ORDER FOR PATIENT TO BE TRANSFERED TO CONTRACTED FACILITY. I CALLED [facility] AND SPOKE WITH SYLWIA. I GAVE HER VERBAL REPORT. SHE SAID SHE WOULD SPEAK WITH HER PHYSICIAN ABOUT THIS PATIENT, BUT SHE SAID THAT IF NO PROCEDURES WERE DUE, THEY PROBABLY WON'T TRANSFER PATIENT. SHE SAID SHE HAD DR. BELL'S PHONE NUMBER. I INFORMED DR. GOMEZ.
[2017-08-06] MEDS: ATORVASTATIN 80 MG TAB PO SCH (09:13)
[2017-08-06] MEDS: NIFEdipine 60 MG TABER PO SCH (09:13)
[2017-08-06] MEDS: METOPROLOL 25 MG TAB PO SCH ×2 (09:13→21:00)
[2017-08-06] MEDS: PANTOPRAZOLE 40 MG TABEC PO SCH (09:14)
[2017-08-06] MEDS: ECOTRIN 81 MG TABEC PO SCH (09:14)
[2017-08-06] MEDS: CLOPIDOGREL 75 MG TAB PO SCH (09:14)
[2017-08-06 09:26] LABS: BASOPHILS # (AUTO) 0.1 K/uL (0.00-0.22); BASOPHILS % (AUTO) 1.4 % (0.0-2.0); EOSINOPHILS # (AUTO) 0.3 K/uL (0-0.4); EOSINOPHILS % (AUTO) 3.8 % (0.0-4.0); HEMATOCRIT 35.6 % (36-48); HEMOGLOBIN 11.6 g/dL (12.0-16.0); LYMPHOCYTES % (AUTO) 24.4 % (20.5-51.1); MEAN CORPUSCULAR HEMOGLOBIN 27 pg (27-31); MEAN CORPUSCULAR HGB CONC 33 g/dL (33-37); MEAN CORPUSCULAR VOLUME 83.9 fL (80-94); MONOCYTES # (AUTO) 0.5 K/uL (0.8-1.0); MONOCYTES % (AUTO) 6.6 % (1.7-9.3); NEUTROPHILS # (AUTO) 5.2 K/uL (1.8-7.7); NEUTROPHILS % (AUTO) 63.8 % (42.2-75.2); PLATELET COUNT (AUTO) 174 K/uL (140-450); RED BLOOD CELL COUNT(AUTO) 4.24 MIL/uL (4.20-5.40); RED CELL DISTRIBUTION WIDTH 15.6 % (11.6-13.7); WHITE BLOOD COUNT (AUTO) 8.2 K/uL (4.8-10.8)
[2017-08-06 10:14] LABS: ANION GAP 16.9 (8-16); CARBON DIOXIDE 28.7 mmol/L (21-32); POTASSIUM 4.6 mmol/L (3.5-5.1)
[2017-08-06 10:19] LABS: CREATININE 5.2 mg/dL (0.6-1.3)
[2017-08-06] MEDS: INSULIN LISPRO SLIDING SCALE 100 UNITS/ML VIAL SUBQ PRN ×2 (11:40→21:11)
--- NOTE | 2017-08-06 14:37 | NUR ---
FAXED TO [facility] [phone] PHONE SYLWIA [phone]
--- NOTE | 2017-08-06 14:45 | NUR ---
RECEIVED REPORT FROM ICU NURSE. PT IS IRANIAN SPEAKING ONLY. PT SITING ON THE BEDSIDE . VS NOTED BP 146/67, HR 86, T 98 02 95% , RR 18. PT DENIES ANY DISCOMFORT , NO SOB AND DENIES PAIN AT THIS TIME. PT HAS OLD SHUNT ON THE RT HAND. PER ICU NURSE, BP AND BLOOD DRAWS CAN BE DONE ON THE RT HAND. NO BP , BLOOD DRAWS ON THE LEFT HAND. PT SKIN IS NON-INTACT. HAS BRUISES ON THE BODY, LEFT TOE IS AMPUTATED , AND HAS SOME ABRASIONS IN BETWEEN THE TOES. PT IS FALL RISK. YELLOW START SIGN IS POSTED ON THE ROOM WALL. PT IS ON YELLOW GOWN, HAS YELLOW SHOCKS ON. BED IS POSITIONED AT LOW POSITION, SIDE RAILS UPx2. PT HAS CALL LIGHT WITHIN THE REACH , DEMONSTRATED TO USE THE CALL LIGHT. PT VERBALIZED THE UNDERSTANDING. IRINEO WAS AT BEDSIDE. PT IS ON TELE MONITOR.WILL CONTINUE TO MONITOR THE PT.
--- NOTE | 2017-08-06 14:45 | NUR ---
PT TRANSFERRED TO TELE UNIT ROOM 119B VIA WHEELCHAIR, NO INCIDENT OCCUR, PT IS IN STABLE CONDITION, REPORT GIVEN TO RONAN SALGUERO AT BEDSIDE.
--- NOTE | 2017-08-06 15:02 | NUR ---
08/06/17 RD INITIAL ASSESSMENT COMPLETED PLEASE REFER TO NUTRITION ASSESSMENT UNDER CARE ACTIVITY FOR ESTIMATED NUTRITIONAL NEEDS. 1. CONTINUE CCHO 60 GM AND RENAL DIET TOLERATED 2. PROVIDED DIABETES AND RENAL DIET EDUCATION 3. RD TO FOLLOW-UP 3-5 DAYS, MODERATE RISK LUKASZ TIWARI, MARIA M
[2017-08-06] MEDS: LEVOFLOXACIN 250 MG/D5 PREMIX 50 ML IV SCH (15:54)
--- NOTE | 2017-08-06 17:00 | NUR ---
CHECKED ON PT. BS NOTED 129. NO INSULIN COVERAGE NEEDED AT THIS TIME. SS AT BEDSIDE , TALKING TO PT. PT HAS NO SIGN OF DISTRESS. ALL SAFETY MEASURE IN PLACE. WILL CONTINUE TO MONITOR PT.
--- NOTE | 2017-08-06 18:05 | NUR ---
ADMINISTERED ROCEPHIN ORDERED. PT TOLERATED WELL. PT EATING HER DINNER AT HER BEDSIDE. NO SIGN OF DISTRESS. ALL SAFETY MEASURE IN PLACE. WILL CONTINUE TO MONITOR PT.
--- NOTE | 2017-08-06 19:10 | NUR ---
ENDORSED PT TO PM NURSE FOR CONTINUITY OF CARE. PT STABLE.
--- NOTE | 2017-08-06 21:15 | NUR ---
ALSO ADMINISTERED 15UNITS OF HUMULIN 70-30 AND 2 UNITS OF HUMALOG PER SLIDING SCALE. INSTRUCTED PT BEFOREHAND ABOUT THE DIFFERENCE AND AMOUNTS OF EACH INSULIN, PT VERBALIZED UNDERSTANDING. PT TOLERATED WELL.
--- NOTE | 2017-08-06 21:15 | NUR ---
ADMINISTERED SCHEDULED MEDICATIONS, PT TOLERATED WELL. PT STABLE, NO SIGNS OF DISTRESS NOTED AT THIS TIME. BED IN LOWEST POSITION, BED ALARM ON. CALL LIGHT WITHIN REACH, WILL CONTINUE TO MONITOR.
[2017-08-06] MEDS: HYDROcodone/APAP 7.5/325 MG 1 TAB PO PRN (22:03)
--- NOTE | 2017-08-06 22:05 | NUR ---
PT COMPLAINED OF 6/10 CHEST PAIN. ADMINISTERED MORPHINE PER ORDER, PT TOLERATED WELL.
--- NOTE | 2017-08-06 23:25 | NUR ---
PT STATES SHE IS FEELING NAUSEOUS AND WANTS TO THROW UP. PT DOES NOT THROW UP BUT IS STILL COMPLAINING ABOUT BEING NAUSEOUS, WILL MEDICATE WITH ZOFRAN.
[2017-08-07] VITALS: BP 127/52
--- NOTE | 2017-08-07 01:31 | NUR ---
PT C/O SOB, SPO2 94%, CALLED RT TO GIVE BREATHING TREATMENT TO PT. RT TODD GAVE TREATMENT TO PT. WHILE CHECKING PT BLOOD PRESSURE I NOTICED PT WAS DIAPHORETIC AND CHECKED BLOOD SUGAR. BLOOD SUGAR WAS 43, PUSHED IV DEXTROSE, PT TOLERATED WELL. WAITED 5 MINUTES AND CHECKED BLOOD SUGAR AGAIN, IT IS NOW 125. PT IS STABLE, NO SIGNS OF DISTRESS NOTED AT THIS TIME. BED IN LOWEST POSITION, BED ALARM ON. CALL LIGHT WITHIN REACH, WILL CONTINUE TO MONITOR.
--- NOTE | 2017-08-07 01:38 | NUR ---
SPOKE TO DR DING ABOUT PT STATING SHE DOES NOT TAKE 15 UNITS OF HUMULIN 70-30 EVERY NIGHT. PT STATES SHE WILL ONLY TAKE 5 UNITS, OR 10 OR 15 UNITS DEPENDING ON THE BLOOD SUGAR LEVEL. DR DING SAID SHE WILL HOLD HUMULIN 70-30 INSULIN UNTIL FURTHER NOTICE.
--- NOTE | 2017-08-07 02:50 | NUR ---
PT IS STABLE, NO SIGNS OF DISTRESS NOTED AT THIS TIME. BED IN LOWEST POSITION, BED ALARM ON. CALL LIGHT WITHIN REACH, WILL CONTINUE TO MONITOR.
[2017-08-07 04:00] VITALS: BP 123/57
--- NOTE | 2017-08-07 04:00 | NUR ---
VITAL SIGNS WITHIN NORMAL LIMITS. PT STABLE, NO SIGNS OF DISTRESS NOTED AT THIS TIME. BED IN LOWEST POSITION, BED ALARM ON. CALL LIGHT WITHIN REACH, WILL CONTINUE TO MONITOR.
[2017-08-07] MEDS: NACL 0.9% 1,000 ML IV SCH (06:19)
[2017-08-07] MEDS: BLOOD GLUCOSE MONITORING 1 DEV DEV FS SCH ×4 (06:55→20:26)
[2017-08-07] MEDS ORDERED: LORazepam 1 MG TAB PO SCH (07:00)
--- NOTE | 2017-08-07 07:19 | NUR ---
ENDORSED PT TO DAY SHIFT RN FOR CONTINUITY OF CARE. PT IN STABLE CONDITION.
[2017-08-07 07:40] LABS: BASOPHILS % (AUTO) 0.5 % (0.0-2.0); EOSINOPHILS # (AUTO) 0.3 K/uL (0-0.4); EOSINOPHILS % (AUTO) 3.8 % (0.0-4.0); HEMATOCRIT 37.1 % (36-48); LYMPHOCYTES # (AUTO) 1.5 K/uL (2.5-16.5); LYMPHOCYTES % (AUTO) 19.1 % (20.5-51.1); MEAN CORPUSCULAR HEMOGLOBIN 27 pg (27-31); MEAN CORPUSCULAR HGB CONC 32 g/dL (33-37); MEAN CORPUSCULAR VOLUME 84.8 fL (80-94); MONOCYTES # (AUTO) 0.4 K/uL (0.8-1.0); MONOCYTES % (AUTO) 4.9 % (1.7-9.3); NEUTROPHILS # (AUTO) 5.8 K/uL (1.8-7.7); NEUTROPHILS % (AUTO) 71.7 % (42.2-75.2); PLATELET COUNT (AUTO) 193 K/uL (140-450); RED BLOOD CELL COUNT(AUTO) 4.37 MIL/uL (4.20-5.40); RED CELL DISTRIBUTION WIDTH 16.1 % (11.6-13.7); WHITE BLOOD COUNT (AUTO) 8.1 K/uL (4.8-10.8)
[2017-08-07] MEDS: ALBUTEROL SULFATE/IPRATROPIU 3 ML SOL IH SCH ×3 (07:43→20:32)
[2017-08-07 07:54] LABS: ANION GAP 21.1 (8-16); CARBON DIOXIDE 24.7 mmol/L (21-32); POTASSIUM 4.8 mmol/L (3.5-5.1)
[2017-08-07 08:00] VITALS: BP 128/55
[2017-08-07 08:04] LABS: MAGNESIUM 2.2 mg/dL (1.8-2.4); PHOSPHORUS 6.9 mg/dL (2.5-4.9)
--- NOTE | 2017-08-07 08:08 | NUR ---
RECEIVED CRITICAL LAB VALUE FOR CREATININE 7.1. NO RESIDENT IN ROOM AT THIS TIME. CHARGE NURSE NOTIFIED.WILL NOTIFY DOCTOR.
[2017-08-07 08:11] LABS: CREATININE 7.1 mg/dL (0.6-1.3)
[2017-08-07] MEDS: NIFEdipine 60 MG TABER PO SCH (09:00)
[2017-08-07] MEDS: INSULIN NPH HUM/REG INSULIN HM 100 UNIT/ML 10 ML VIAL SUBQ SCH ×2 (09:00→20:32)
[2017-08-07] MEDS: METOPROLOL 25 MG TAB PO SCH ×2 (09:00→20:32)
[2017-08-07] MEDS: ATORVASTATIN 80 MG TAB PO SCH (09:00)
[2017-08-07] MEDS: ECOTRIN 81 MG TABEC PO SCH (09:00)
[2017-08-07] MEDS: PANTOPRAZOLE 40 MG TABEC PO SCH (09:00)
[2017-08-07] MEDS: CLOPIDOGREL 75 MG TAB PO SCH (09:00)
--- NOTE | 2017-08-07 09:45 | NUR ---
MEDS WERE HELD BECAUSE PT IS WITH HD NURSE. NO MEDICATION ADMINISTERED AT THIS TIME.
--- NOTE | 2017-08-07 11:30 | NUR ---
PT WITH HD NURSE.
--- NOTE | 2017-08-07 13:43 | NUR ---
FAXED CONCURRENT REVIEW TO [facility] [phone] PHONE SYLWIA I SPOKE WITH SYLWIA AT [facility] AND TOLD HER THAT DR. METCALF SAID PLAN DISCHARGE TOMORROW.
[2017-08-07 16:00] VITALS: BP 124/68
[2017-08-07] MEDS: INSULIN LISPRO SLIDING SCALE 100 UNITS/ML VIAL SUBQ PRN (16:28)
[2017-08-07] MEDS: SEVELAMER CARBONATE 800 MG TAB PO SCH (16:28)
[2017-08-07] MEDS: ONDANSETRON 4 MG/2 ML VIAL IVP PRN (16:29)
--- NOTE | 2017-08-07 19:00 | NUR ---
DR MADERA NOTIFIED ABOUT ESBL IN URINE AND MDRO ABOUT THE PT. DR MADERA STATES THAT DR LOCK WILL BE BACK TONIGHT, ASSESS THE PT AND WILL START THE NEW ABX FOR THE PT. PM NURSE NOTIFIED ABOUT IT. INFORMED HER TO FOLLOW UP WITH DR MADERA AND DR LOCK. VERBALIZED THE UNDERSTANDING OF TEACHING.
--- NOTE | 2017-08-07 19:10 | NUR ---
ENDORSED PT TO PM NURSE FOR THE CONTINUITY OF CARE. PT STABLE AT THIS TIME. PM NURSE NOTIFIED ABOUT PT URINE HAS ESBL AND IS MDRO. DR MA TO COME TONIGHT , ASSESS THE PT AND START THE NEW ABX. PM NURSE TO FOLLOW UP WITH THE PT DR LOCK AND CASSY. [id number] THE UNDERSTANDING.
--- NOTE | 2017-08-07 19:11 | NUR ---
RECEIVED PT FROM DAY SHIFT NURSE NOEMY RN. PT IN STABLE CONDITION. NO S/S OF DISTRESS NOTED. PT AAOX4, ON ROOM AIR. IV TO R UPPER ARM 22G, PATENT AND INTACT, INFUSING WELL. PT HAS PERMA CATH ON THE L AND R SIDE. RIGHT SIDE IS NO LONGER BEING USED. L BIG TOE IS AMPUTATED. ABRASION TO L FOOT. BOWEL SOUNDS ACTIVE, RR EVEN/UNLABORED. INITIAL ASSESSMENT COMPLETED. PLAN OF CARE DISCUSSED WITH PT, VERBALIZED UNDERSTANDING. ALL SAFETY PRECAUTIONS MET, CALL LIGHT WITHIN REACH WILL CONTINUE TO MONITOR
--- NOTE | 2017-08-07 19:48 | NUR ---
LAB CALLED REGARDING THE URINE CULTURE. PT HAS ESBL IN URINE AND MDRO. DR LOCK WAS IN THE ROOM. EXPLAINING PT ABOUT MDRO AND ESBL. DR LOCK EXPLAINING THAT PT CURRENT ABX WILL BE STOPPED AND THE NEW ONE WILL BE ORDERED. Addendum: 08/07/17 at 1957 by Rodri Fuentes RN TIME WAS 1640 WHEN LAB CALLED FOR CRITICAL LAB VALUE.
[2017-08-07 20:00] VITALS: BP 111/68
--- NOTE | 2017-08-07 20:00 | NUR ---
FOLLOWED UP WITH DR. HOWE ABOUT ESBL IN PTS URINE. HE STATED THEY ARE WAITING FOR DR. LOCK TO COME SEE THE PT AND DECIDE IF SHE NEEDS ANTIBIOTICS. Addendum: 08/07/17 at 2139 by Kirstin Mobley RN DR. NDIAYE*
--- NOTE | 2017-08-07 20:32 | NUR ---
PT REFUSED HUMULIN 70/30 AND HUMALOG AT THIS TIME. PT EDUCATED ON PURPOSES, RISKS, AND BENEFITS. PT VERBALIZED UNDERSTANDING BUT STATES, "LAST TIME THEY GAVE IT TO ME IT DROPPED TO 40 SO I DON'T WANT IT."
--- NOTE | 2017-08-07 21:30 | NUR ---
DR. LOCK HERE NOW. HE ASSESSED THE PT. HE STATES THE PT IS A-SYMPTOMATIC AND DOESN'T NEED TO BE ON ANTIBIOTIC TREATMENT. Addendum: 08/07/17 at 2138 by Kirstin Mobley RN INCORRECT SPELLING ON DR. WARE, INFECTIOUS DISEASE HERE TO ASSESS PT.
--- NOTE | 2017-08-07 21:30 | NUR ---
DR. WARE HERE NOW. HE ASSESSED THE PT. HE STATES THE PT IS A-SYMPTOMATIC AND DOESN'T NEED TO BE ON ANTIBIOTIC TREATMENT.
[2017-08-08] VITALS: BP 118/69
--- NOTE | 2017-08-08 | NUR ---
PT RESTING COMFORTABLY IN BED. NO S/S OF DISTRESS NOTED. RR EVEN/UNLABORED
--- NOTE | 2017-08-08 03:00 | NUR ---
PT RESTING COMFORTABLY. VSS. NO S/S OF DISTRESS NOTED
[2017-08-08] MEDS: ONDANSETRON 4 MG/2 ML VIAL IVP PRN ×2 (03:53→13:02)
[2017-08-08 04:00] VITALS: BP 126/72
[2017-08-08] MEDS: NACL 0.9% 1,000 ML IV SCH (05:50)
[2017-08-08] MEDS: BLOOD GLUCOSE MONITORING 1 DEV DEV FS SCH ×3 (05:54→16:10)
--- NOTE | 2017-08-08 05:55 | NUR ---
PT DOES NOT WANT INSULIN AT THIS TIME, SHE STATES SHE WILL TAKE IT LATER
[2017-08-08] MEDS: ALBUTEROL SULFATE/IPRATROPIU 3 ML SOL IH SCH ×2 (07:00→13:24)
--- NOTE | 2017-08-08 07:34 | NUR ---
REPORT GIVEN TO DAY NURSE FOR CONTINUITY OF CARE, PT IN STABLE CONDITION
--- NOTE | 2017-08-08 07:35 | NUR ---
RECEIVED PT REPORT FROM DOUGH RAISER NURSE RN. PT IS AWAKE, ALERT, OX4. NO S/S OF DISTRESS NOTED. ON ROOM AIR. IV TO R UPPER ARM 22G, INFILTRATED. WILL START NEW IV LATER. PT HAS PERMA CATH ON THE R UPPER CHEST. L AV SHUNT NO LONGER USING. HD MWF. L FOOT GREAT TOE AMPUTATED. ABRASION TO L FOOT. BOWEL SOUNDS ACTIVE, RR EVEN/UNLABORED. PLAN OF CARE DISCUSSED WITH PT, PT VERBALIZED UNDERSTANDING. ALL SAFETY PRECAUTIONS MET, CALL LIGHT WITHIN REACH, WILL CONTINUE TO MONITOR
[2017-08-08 07:39] LABS: BASOPHILS % (AUTO) 0.3 % (0.0-2.0); EOSINOPHILS # (AUTO) 0.5 K/uL (0-0.4); EOSINOPHILS % (AUTO) 5.2 % (0.0-4.0); HEMATOCRIT 33.6 % (36-48); LYMPHOCYTES # (AUTO) 2.1 K/uL (2.5-16.5); LYMPHOCYTES % (AUTO) 22.4 % (20.5-51.1); MEAN CORPUSCULAR HEMOGLOBIN 28 pg (27-31); MEAN CORPUSCULAR HGB CONC 33 g/dL (33-37); MEAN CORPUSCULAR VOLUME 84.7 fL (80-94); MONOCYTES # (AUTO) 0.5 K/uL (0.8-1.0); MONOCYTES % (AUTO) 5.9 % (1.7-9.3); NEUTROPHILS # (AUTO) 6.2 K/uL (1.8-7.7); NEUTROPHILS % (AUTO) 66.2 % (42.2-75.2); PLATELET COUNT (AUTO) 178 K/uL (140-450); RED BLOOD CELL COUNT(AUTO) 3.96 MIL/uL (4.20-5.40); RED CELL DISTRIBUTION WIDTH 16.3 % (11.6-13.7); WHITE BLOOD COUNT (AUTO) 9.4 K/uL (4.8-10.8)
[2017-08-08 07:51] LABS: ANION GAP 17.6 (8-16); CARBON DIOXIDE 25.8 mmol/L (21-32); POTASSIUM 5.4 mmol/L (3.5-5.1)
[2017-08-08 07:56] LABS: MAGNESIUM 1.8 mg/dL (1.8-2.4); PHOSPHORUS 5.3 mg/dL (2.5-4.9)
[2017-08-08 07:59] LABS: CREATININE 4.6 mg/dL (0.6-1.3)
[2017-08-08 08:00] VITALS: BP 128/67
[2017-08-08] MEDS: INSULIN LISPRO SLIDING SCALE 100 UNITS/ML VIAL SUBQ PRN (08:12)
[2017-08-08] MEDS: NIFEdipine 60 MG TABER PO SCH (09:00)
[2017-08-08] MEDS: SEVELAMER CARBONATE 800 MG TAB PO SCH ×3 (09:30→16:10)
[2017-08-08] MEDS: HYDROcodone/APAP 7.5/325 MG 1 TAB PO PRN (09:34)
[2017-08-08] MEDS: ATORVASTATIN 80 MG TAB PO SCH (10:17)
[2017-08-08] MEDS: ECOTRIN 81 MG TABEC PO SCH (10:17)
[2017-08-08] MEDS: METOPROLOL 25 MG TAB PO SCH (10:18)
[2017-08-08] MEDS: CLOPIDOGREL 75 MG TAB PO SCH (10:19)
[2017-08-08] MEDS: PANTOPRAZOLE 40 MG TABEC PO SCH (10:19)
[2017-08-08] MEDS: INSULIN NPH HUM/REG INSULIN HM 100 UNIT/ML 10 ML VIAL SUBQ SCH (10:33)
[2017-08-08 12:00] VITALS: BP 129/61
--- NOTE | 2017-08-08 13:05 | NUR ---
PT WAS C/O NAUSEA, ZOFRAN GIVEN.
--- NOTE | 2017-08-08 13:10 | NUR ---
PT C/O HOT ON THE BACK, HOWEVER, SKIN FEELS COOL. PLACED ICE PACK ON BACK.
--- NOTE | 2017-08-08 13:30 | NUR ---
PT IS OFF ICE PACK. NO C/O AT THIS TIME.
[2017-08-08] MEDS ORDERED: SODIUM POLYSTYRENE 15 GM/60 ML UDBTL PO SCH (15:05)
[2017-08-08 16:00] VITALS: BP 109/70
[2017-08-08] MEDS ORDERED: IBUPROFEN 600 MG TAB PO SCH (16:05)
[2017-08-08] MEDS ORDERED: PNEUMOCOCCAL VACCINE 23 MCG/0.5 ML VIAL IMVAC SCH (16:35)
--- NOTE | 2017-08-08 17:00 | NUR ---
PT RECEIVED PNA VAC IN 2015 LESS THAN 3 YRS. PNA VAC IS NOT INDICATED.
--- NOTE | 2017-08-08 17:30 | NUR ---
PT DISCHARGED PER MD ORDER. DISCHARGE INSTRUCTIONS AND MED TEACHING GIVEN. PT VERBALIZED UNDERSTANDING. MADE PT AWARE THAT SHE NEEDS TO MAKE APPT WITH PCP WITHIN 3 DAYS OF DISCHARGE AND SHE NEEDS DIALYSIS ON THURSDAY. PT VERBALIZED UNDERSTANDING AND STATED SHE GOES TO [facility] FOR HD. NO S/S OF ACUTE DISTRESS NOTED. IV DC'ED BY LEARNING OFFICER, TIP INTACT, PRESSURE APPLIED. PT WAS DRESS, LEFT WITH ALL HER BELONGINGS AND IN STABLE CONDITION. WHEELED PT TO LOBBY BY LEARNING OFFICER.
== END 2017-08-08 17:30 | disposition home or self-care (01) | DRG 177 ==
LOC: EDBD 03:13 → MED 03:13 → MIC 05:58 → MERGE 05:58 → MIC 07:15 → MTU 08-06 14:45
PROVIDERS: ADMIT General Practice; ATTEND General Practice
PROC: 5A1D70Z Performance of Urinary Filtration, Intermittent, Less than 6 Hours Per Day (ICD-10-PCS; principal; 2017-08-05)
PROC: 5A09357 Assistance with Respiratory Ventilation, Less than 24 Consecutive Hours, Continuous Positive Airway Pressure (ICD-10-PCS; 2017-08-05)
PROC: 5A1D70Z Performance of Urinary Filtration, Intermittent, Less than 6 Hours Per Day (ICD-10-PCS; 2017-08-07)
DX: J69.0 Pneumonitis due to inhalation of food and vomit (principal); I50.43 Acute on chronic combined systolic (congestive) and diastolic (congestive) heart failure; N18.6 End stage renal disease; J96.01 Acute respiratory failure with hypoxia; N17.0 Acute kidney failure with tubular necrosis; N39.0 Urinary tract infection, site not specified; J98.11 Atelectasis; I13.2 Hypertensive heart and chronic kidney disease with heart failure and with stage 5 chronic kidney disease, or end stage renal disease; E78.5 Hyperlipidemia, unspecified; E83.41 Hypermagnesemia; I44.7 Left bundle-branch block, unspecified; E83.39 Other disorders of phosphorus metabolism; E05.90 Thyrotoxicosis, unspecified without thyrotoxic crisis or storm; B96.20 Unspecified Escherichia coli [E. coli] as the cause of diseases classified elsewhere; E11.65 Type 2 diabetes mellitus with hyperglycemia; Z99.2 Dependence on renal dialysis; E11.22 Type 2 diabetes mellitus with diabetic chronic kidney disease; E11.51 Type 2 diabetes mellitus with diabetic peripheral angiopathy without gangrene; E78.00 Pure hypercholesterolemia, unspecified; I25.10 Atherosclerotic heart disease of native coronary artery without angina pectoris; Z95.5 Presence of coronary angioplasty implant and graft; Z89.412 Acquired absence of left great toe; Z89.411 Acquired absence of right great toe; Z90.49 Acquired absence of other specified parts of digestive tract; Z79.02 Long term (current) use of antithrombotics/antiplatelets; Z79.82 Long term (current) use of aspirin; Z79.4 Long term (current) use of insulin; Z79.899 Other long term (current) drug therapy; Z83.3 Family history of diabetes mellitus; Z88.8 Allergy status to other drugs, medicaments and biological substances
CPT/HCPCS: 36415; 36600; 71045; 71046; 80048; 80053; 80305; 81001; 82150; 82550; 82803; 82948; 83036; 83605; 83690; 83735; 83880; 84100; 84436; 84439; 84443; 84479; 84484; 85025; 85610; 85730; 87040; 87081; 87086; 87186; 94640; 94660; 96361; 96365; 96375; 99285; C1758; J0696; J1644; J1815; J1940; J1956; J2270; J2405; J7030; J7060; J7620; Q0092

== ENCOUNTER 2017-09-05 05:57 | Inpatient (IN) | payer OTHER ==
[~2017-09-05] VITALS: Ht 157.5 cm; Wt 69.4 kg
[~2017-09-05 05:57] MED LIST changes: +ASPI-1677 PO; -ASPI81CT89 PO; -ASPI81EC19 PO; -CARV6.252 PO; -CLOP75TA PO; -FURO-570 PO; +METO25TA PO; -METO25TA14 PO; -NITR0.4T2 SL; -SIMV40TA1 PO
[2017-09-05 06:00] VITALS: BP 116/45
--- NOTE | 2017-09-05 06:14 | NUR ---
PATIENT AMBULATED TO ER BED 4
--- NOTE | 2017-09-05 06:21 | NUR ---
PT C/O FEVER X 1 DAY. AFEBRILE UPON ARRIVAL TO ER. PT HAS DIALYSIS SHUNT ON RT CHEST. PT HAS DIALYSIS ON //. C/O PAIN TO MIDDLE OF CHEST, 05/26. PT SKIN IS DRY. LEFT GREAT TOE MISSING. AAOX4 WITH STEADY GAIT. LUNGS CLEAR BILATERALLY, HEART RATE EVEN AND REGULAR. PATIENT POSITIONED FOR COMFORT; HOB ELEVATED; BEDRAILS UP X2; BED DOWN. ER MD MADE AWARE OF PT STATUS.
--- NOTE | 2017-09-05 06:30 | NUR ---
PT STATES UNABLE TO VOID AT THIS TIME DUE TO HER DIALYSIS.
--- NOTE | 2017-09-05 06:57 | NUR ---
PT HAS OLD SHUNT ON LEFT UPPER ARM. I/O CATH PLACED, NO URINE OUTPUT AT THIS TIME.
--- NOTE | 2017-09-05 08:07 | NUR ---
PHLEB at bedside for blood draw.
[2017-09-05 08:16] LABS: BASOPHILS # (AUTO) 0.1 K/uL (0.00-0.22); BASOPHILS % (AUTO) 0.9 % (0.0-2.0); EOSINOPHILS # (AUTO) 0.2 K/uL (0-0.4); HEMATOCRIT 27.2 % (36-48); HEMOGLOBIN 8.8 g/dL (12.0-16.0); LYMPHOCYTES # (AUTO) 1.3 K/uL (2.5-16.5); LYMPHOCYTES % (AUTO) 19.4 % (20.5-51.1); MEAN CORPUSCULAR HEMOGLOBIN 28 pg (27-31); MEAN CORPUSCULAR HGB CONC 32 g/dL (33-37); MEAN CORPUSCULAR VOLUME 85.8 fL (80-94); MONOCYTES # (AUTO) 0.4 K/uL (0.8-1.0); MONOCYTES % (AUTO) 6.1 % (1.7-9.3); NEUTROPHILS # (AUTO) 4.8 K/uL (1.8-7.7); NEUTROPHILS % (AUTO) 70.6 % (42.2-75.2); PLATELET COUNT (AUTO) 197 K/uL (140-450); RED BLOOD CELL COUNT(AUTO) 3.17 MIL/uL (4.20-5.40); RED CELL DISTRIBUTION WIDTH 16.7 % (11.6-13.7); WHITE BLOOD COUNT (AUTO) 6.9 K/uL (4.8-10.8)
[2017-09-05 08:40] LABS: ALBUMIN 3.3 g/dL (3.4-5.0); ANION GAP 12.2 (8-16); CARBON DIOXIDE 28.8 mmol/L (21-32); TOTAL BILIRUBIN 0.3 mg/dL (0.0-1.0)
[2017-09-05 08:45] LABS: CREATININE 5.3 mg/dL (0.6-1.3)
[2017-09-05] MEDS ORDERED: INSULIN REGULAR, HUMAN 100 UNIT/ML VIAL IVP ONE (09:25)
--- NOTE | 2017-09-05 09:53 | NUR ---
AND BISI FERRARO NOTIFIED OF ABNORMAL TROPONIN
[2017-09-05 10:17] LABS: PROTHROMBIN TIME 10.3 secs (10.8-13.4)
[2017-09-05] MEDS ORDERED: hePARIN / DEXT 5% PREMIX 250 ML IV ONE (10:40)
[2017-09-05] MEDS ORDERED: HEPARIN PER PHARMACY MC PRN (10:40)
--- NOTE | 2017-09-05 12:00 | NUR ---
AAO PT NOTIFIED OF POSSIBLE TRANSFER TO [facility], CONSENT SIGNED, WILL CONTINUE TO MONITOR
--- NOTE | 2017-09-05 12:54 | NUR ---
PT GIVEN HEPARIN 4000 UNITS/0.8ML IV 24G RT WRIST WITH TECHNICAL DEVELOPER ANGELIKA
[2017-09-05] MEDS ORDERED: NACL 0.9% 1,000 ML IV SCH (13:47)
[2017-09-05] MEDS ORDERED: NITROGLYCERIN 0.4 MG TAB SL PRN (13:50)
[2017-09-05] MEDS ORDERED: ZOLPIDEM 5 MG TAB PO PRN (13:50)
[2017-09-05] MEDS ORDERED: ACETAMINOPHEN 325 MG TAB PO PRN (13:50)
[2017-09-05] MEDS ORDERED: ONDANSETRON 4 MG/2 ML VIAL IVP PRN (13:50)
[2017-09-05 14:20] VITALS: BP 115/70
--- NOTE | 2017-09-05 14:20 | NUR ---
ALEJANDRA FROM LAB CALLED AND REPORTED MARNIE PT'S PTT IS 120.2, ACKNOWLEDGED AND WILL REPORT TO DR. LOAIZA.
--- NOTE | 2017-09-05 14:20 | NUR ---
RECEIVED PT VIA WHEELCHAIR FROM ER NURSE, PT IS AWAKE AND ALERT WITH A RIGHT FLAVIA CATHETER ON THE RT UPPER BODY AND A DIALYSIS SHUNT ON THE LEFT UPPER ARM. PT HAS AN IV LINE ALSO ON THE RIGHT HAND G. 24 WITH HEPARIN AT 800 UNITS RUNNING. SIDE RAILS ARE UP AND CALL LIGHT WITHIN REACH. PLAN OF CARE WAS DISCUSSED AND PT VERBALIZED UNDERSTANDING. PT HAS DIALYSIS EVERY M-W-. VITAL SIGNS TAKEN AND IS STABLE. NO SIGN OF DISTRESS NOTED. WILL CONTINUE TO MONITOR.
[2017-09-05 14:23] LABS: FREE T4 (FREE THYROXINE) 1.35 ng/dL (0.76-1.46); MAGNESIUM 2.2 mg/dL (1.8-2.4); PHOSPHORUS 2.7 mg/dL (2.5-4.9); THYROID STIMULATING HORMONE 1.98 uIU/mL (0.34-3.74)
--- NOTE | 2017-09-05 14:25 | NUR ---
INFORMED DR. LOAIZA OF THE PT'S PTT LEVEL OF 120.2, MD ACKNOWLEDGED.
--- NOTE | 2017-09-05 14:25 | NUR ---
Patient admitted to care of Dr Rhodes. Admited to tele room 114. Belongings list completed. Report given to charge accounts audit clerk Allem.
[2017-09-05 14:29] LABS: PROTHROMBIN TIME 11.6 secs (10.8-13.4)
--- NOTE | 2017-09-05 16:15 | NUR ---
PT IS AWAKE AND VITAL SIGNS TAKEN ANS IS STABLE. NO SIGN OF DISTRESS NOTED. WILL MONITOR.
--- NOTE | 2017-09-05 16:59 | NUR ---
ALEJANDRA OF LAB CALLED AND REPORTED THAT THE PT'S TROPONIN LEVEL IS 6.032, ACKNOWLEDGED AND WILL INFORM THE DR. LOAIZA.
--- NOTE | 2017-09-05 18:15 | NUR ---
HOG SAWYER IS DRAWING BLOOD FOR THE PT'S NEXT PTT.
[2017-09-05 18:50] LABS: PROTHROMBIN TIME 10.8 secs (10.8-13.4)
--- NOTE | 2017-09-05 19:45 | NUR ---
ENDORSED PT TO INDUSTRIAL TECHNOLOGIST NURSE, JAMES FOR CONTINUITY OF CARE. PT IS STABLE AT THIS TIME.
--- NOTE | 2017-09-05 19:46 | NUR ---
RECEIVED PT FROM KONG RN PT TAJIK SPEAKER AAOX4 AMBULATORY ON ESRD AND DX NSTEMI PT ON HEPARIN DRIP NOT SIGNS OF BLEEEDING OR STRESS AT THIS TIME , ON TELEMETR SR BBB, IV ON RT HAND INFUSING WELL INITIAL ASSESSMENT DONE
--- NOTE | 2017-09-05 19:54 | NUR ---
HEPARIN BOLUS OF 4000 UNITS GIVEN AND STARTED A 1100 UNITS/ HR. NO SIGN OF DISTRESS NOTED ON THE PT.
[2017-09-05 20:00] VITALS: BP 112/60
[2017-09-05] MEDS ORDERED: ISOS60TE3 PO (20:42)
[2017-09-05] MEDS ORDERED: SERT50TA PO (20:42)
[2017-09-05] MEDS ORDERED: METO50TA20 PO (20:42)
[2017-09-05] MEDS ORDERED: ATOR40TA PO (20:42)
[2017-09-05] MEDS ORDERED: AMIO200T2 PO (20:42)
[2017-09-05] MEDS ORDERED: PANT40EC PO (20:42)
[2017-09-05] MEDS ORDERED: METOPROLOL 25 MG TAB PO SCH (21:00)
[2017-09-05] MEDS ORDERED: [UNRECOGNIZED DRUG - OTHER] SUBQ SCH (21:00)
[2017-09-05] MEDS ORDERED: INSULIN NPH HUM SUBQ SCH (21:00)
[2017-09-05] MEDS ORDERED: REG INSULIN SUBQ SCH (21:00)
[2017-09-05] MEDS ORDERED: ATORVASTATIN 20 MG TAB PO SCH ×2 (21:00)
[2017-09-05] MEDS: DOCUSATE SODIUM 100 MG GELCAP PO SCH (21:54)
--- NOTE | 2017-09-05 22:00 | NUR ---
PT REMAIN STABLE NOT SIGN OF BLEEDING NOTED ON TELE SR BBB
[2017-09-06] VITALS: BP 97/46
[2017-09-06 02:35] LABS: PROTHROMBIN TIME 11.2 secs (10.8-13.4)
--- NOTE | 2017-09-06 02:55 | NUR ---
LAB CALL TO REPORT PTT 91,7 AND FOLLOE HEPARIN PROTOCOL HOLD FOR ONE HOUR AND DECREASE TO 200 UNI5S FOR HOUR
--- NOTE | 2017-09-06 03:56 | NUR ---
HEPARIN HAS DECREASE 200 UNITS FOR HOUR AND NOW IS 900 UNITS FOR HOR AND PTT EN 6 H
[2017-09-06 04:00] VITALS: BP 107/53
[2017-09-06] MEDS: hePARIN / DEXT 5% PREMIX 250 ML IV SCH ×4 (04:00→19:34)
--- NOTE | 2017-09-06 04:00 | NUR ---
AT 0400 AM PT CONTINUINING HEPARIN DRIP AT 900 UNITS/H
--- NOTE | 2017-09-06 06:48 | NUR ---
PT REMAINSTBLE DENIES ANY PAIN ON HEPARIN DRIP 9 ML/H ON RT HAND PT WILL BE ENDORSED TO DAY SHIFT NURSE FOR CONTINUITY OF CAR
--- NOTE | 2017-09-06 07:23 | NUR ---
PT IS ENDORSED TO BROCK RN FOR CONTINUITY OF CARE
--- NOTE | 2017-09-06 07:27 | NUR ---
RECEIVED REPORT FROM ENVIRONMENTAL STUDIES PROFESSOR RN. PT IN STABLE CONDITION, AWAKE, ALERT, AND RESTING IN BED. NO COMPLAINTS OF PAIN OR DISCOMFORT. SKIN INTACT. CONTACT PRECAUTIONS FOR HX ESBL. LEFT UPPER ARM FISTULA FOR DIALYSIS MWF. FLAVIA CATH ON RIGHT UPPER CHEST. IV SITE PATENT AND RUNNING HEPARIN AT 900 UNITS/HR PER PROTOCOL. WILL CHECK APTT AT 1000. LUNGS CTA IN ALL [place]. NO COMPLAINTS OF CHEST PAIN OR SOB. DENIES NAUSEA. ALL SAFETY MEASURES IN PLACE, WILL CONTINUE TO MONITOR.
[2017-09-06 08:00] VITALS: BP 106/62
[2017-09-06] MEDS ORDERED: DEXTROSE 50% 50 ML SYR IVP PRN (08:35)
[2017-09-06] MEDS ORDERED: NON-FORMULARY ITEM (Isosorbide Mononitrate (Isosorbide Mononitrate ER) 1 TAB) PO SCH (09:00)
[2017-09-06] MEDS ORDERED: SERTRALINE 50 MG TAB PO SCH (09:00)
[2017-09-06] MEDS ORDERED: ASPIRIN 81 MG TAB.CHEW PO SCH (09:00)
[2017-09-06] MEDS ORDERED: CLOPIDOGREL 75 MG TAB PO SCH ×2 (09:00)
[2017-09-06] MEDS ORDERED: PANTOPRAZOLE 40 MG TABEC PO SCH (09:00)
[2017-09-06] MEDS: DOCUSATE SODIUM 100 MG GELCAP PO SCH ×2 (09:00→21:00)
[2017-09-06] MEDS ORDERED: METOPROLOL TARTRATE 50 MG PO SCH (09:00)
[2017-09-06] MEDS ORDERED: ISOSORBIDE MONONITRATE 30 MG TABER PO SCH (09:00)
[2017-09-06] MEDS ORDERED: LISINOPRIL 5 MG TAB PO SCH (09:00)
[2017-09-06 09:40] LABS: CARBON DIOXIDE 23.1 mmol/L (21-32); POTASSIUM 4.1 mmol/L (3.5-5.1)
--- NOTE | 2017-09-06 09:41 | NUR ---
PT REPORTED ONE EPISODE OF DIARRHEA. WAS NOT ABLE TO SEE THE DIARRHEA DUE TO PT FLUSHING IT DOWN TOILET.
[2017-09-06] MEDS: CALCIUM CARBONATE 500 MG TAB.CHEW PO SCH ×2 (09:45→21:21)
[2017-09-06] MEDS: AMIODARONE 200 MG TAB PO SCH ×2 (09:51→21:13)
[2017-09-06 09:53] LABS: MAGNESIUM 2.1 mg/dL (1.8-2.4); PHOSPHORUS 3.8 mg/dL (2.5-4.9)
[2017-09-06 09:54] LABS: CHOL/HDL RATIO 2.8 (1-4.5)
[2017-09-06] MEDS ORDERED: ALBUTEROL SULFATE/IPRATROPIU 3 ML SOL IH PRN (10:15)
--- NOTE | 2017-09-06 10:15 | NUR ---
BUILDING ARCHITECT SAID SHE WAS UNABLE TO DRAW CBC AND LACTATE. CHARGE NURSE ENRRIQUE INFORMED. WILL WAIT FOR BUILDING ARCHITECT TO DRAW BEFORE EVALUATING FOR HEPARIN IV.
--- NOTE | 2017-09-06 10:34 | NUR ---
DR. MILNER INFORMED OF PATIENT'S VITALS: BP 100/53, HR 65 AT 0800; BP 104/45, HR 61 AT 0930. ADVISED TO HOLD THE ISOSORBIDE MONONITRATE, AND ADMINISTER THE LISINOPRIL AND AMIODARONE.
--- NOTE | 2017-09-06 10:55 | NUR ---
AWAKE AND ALERT RESPONSIVE FOLLOW COMMANDS TOLERATED INCENTIVE SPIROMETRY THERAPY WELL WITHOUT INCIDENT ENCOURAGED PATIENT WITH ACKNOWLEDGEMENT TO USE EVERY 1-2 HOURS WHILE AWAKE
--- NOTE | 2017-09-06 11:10 | NUR ---
REVIEWED ABG SAMPLE REPORT WITH DR SHLOMO TORRES OIL FURNACE INSTALLER CONSENSUS WITH PLACE PATIENT ON SUPPLEMENTAL OXYGEN AT 3 LM VIA NC
--- NOTE | 2017-09-06 11:22 | NUR ---
DR KARIN LOAIZA REVIEWED ABG SAMPLE REPORT (MST) AGREED WITH SUPPLEMENTAL OXYGEN AT 3 LPM VIA TX MD WILL ENTER OXYGEN ORDER FOR GREATER THAN 92%
--- NOTE | 2017-09-06 11:27 | NUR ---
PT DENYING FURTHER DIARRHEA AND REPORTS NO ABDOMINAL PAIN. NO OTHER COMPLAINTS OF PAIN OR DISCOMFORT. PT RESTING COMFORTABLY IN BED, WILL CONTINUE TO MONITOR.
--- NOTE | 2017-09-06 11:30 | NUR ---
BHASKAR FROM PHARMACY INSTRUCTED TO START HEPARIN AT 9ML/HOUR WHILE PT WAITS FOR A LATE 1200 LAB DRAW.
--- NOTE | 2017-09-06 11:57 | NUR ---
[facility] REGARDING TRANSFER TO HIGHER LEVEL OF CARE FOR AUTHORIZATION SPOKE WITH DARIUS AND WILL CALL BACK
[2017-09-06 12:00] VITALS: BP 106/62
--- NOTE | 2017-09-06 12:00 | NUR ---
[facility] MORE CALLED TO REQUEST H&P, FACE SHEET, AND LABS.
--- NOTE | 2017-09-06 12:10 | NUR ---
DARIUS FROM [facility] CALLED AND REQUESTING DR SARAVIA'S NUMBER FOR THEIR DR TO SPEAK WITH HIM AND PROVIDED THE NUMBER
[2017-09-06] MEDS: BLOOD GLUCOSE MONITORING 1 DEV DEV FS SCH ×3 (12:29→20:56)
[2017-09-06] MEDS ORDERED: ACET-1182 PO (12:37)
[2017-09-06] MEDS ORDERED: GLUC-805 FS (12:37)
[2017-09-06] MEDS ORDERED: ZOLP5TAB1 PO (12:37)
[2017-09-06] MEDS ORDERED: CLOP75TA26 PO (12:37)
[2017-09-06] MEDS ORDERED: AMIO200T10 PO (12:37)
[2017-09-06] MEDS ORDERED: IPRA3AMP IH (12:37)
[2017-09-06] MEDS ORDERED: HUM7030 SUBQ (12:37)
[2017-09-06] MEDS ORDERED: METOPROLOL TARTRATE PO (12:37)
[2017-09-06] MEDS ORDERED: ONDA2SOL45 IVP (12:37)
[2017-09-06] MEDS ORDERED: ISOS30TE35 PO (12:37)
[2017-09-06] MEDS ORDERED: CALC200T38 PO (12:37)
[2017-09-06] MEDS ORDERED: LISI-424 PO (12:37)
[2017-09-06] MEDS ORDERED: D50SYR IVP (12:37)
[2017-09-06] MEDS ORDERED: ASPI81CT95 PO (12:37)
[2017-09-06] MEDS ORDERED: PANT40EC28 PO (12:37)
[2017-09-06] MEDS ORDERED: ATOR20TA40 PO (12:37)
[2017-09-06] MEDS ORDERED: SERT-146 PO (12:37)
[2017-09-06] MEDS ORDERED: Heparin Per Pharmacy MC (12:37)
[2017-09-06] MEDS ORDERED: DOCU-299 PO (12:37)
[2017-09-06] MEDS ORDERED: HEPA-133 IV (12:37)
[2017-09-06] MEDS ORDERED: NITR0.4T1 SL (12:37)
[2017-09-06] MEDS ORDERED: HEPA500056 IV (12:37)
[2017-09-06] MEDS ORDERED: HUMSLIDE SUBQ (12:37)
[2017-09-06] MEDS: INSULIN LISPRO SLIDING SCALE 100 UNITS/ML VIAL SUBQ PRN ×3 (12:52→20:57)
--- NOTE | 2017-09-06 14:21 | NUR ---
FAXED H&P, FACE SHEET, LABS TO [place] FROM [facility].
--- NOTE | 2017-09-06 15:20 | NUR ---
COLLECTED STOOL SAMPLE FOR C.DIFF AND WILL SEND TO LAB.
--- NOTE | 2017-09-06 15:20 | NUR ---
REAL START TIME OF HEPARIN CONTINUOUS INFUSION IS 1154. UNDID PREVIOUS ADMINISTRATION AND RE-SCANNED MEDICATION NOW DUE TO INCORRECT RATE ENTERED INTO EMAR. RATE OF ADMINISTRATION TO PATIENT VIA IV PUMP IS CORRECT. Addendum: 09/06/17 at 1604 by Candace Avila Meng RN NEW BAG HEPARIN SCANNED AT THIS TIME DUE TO LEAK AT SPIKE ON PREVIOUS BAG.
[2017-09-06 15:35] LABS: HEMATOCRIT 26.9 % (36-48); HEMOGLOBIN 8.3 g/dL (12.0-16.0); MEAN CORPUSCULAR HEMOGLOBIN 27 pg (27-31); MEAN CORPUSCULAR HGB CONC 31 g/dL (33-37); MEAN CORPUSCULAR VOLUME 86.4 fL (80-94); PROTHROMBIN TIME 11.1 secs (10.8-13.4); RED BLOOD CELL COUNT(AUTO) 3.11 MIL/uL (4.20-5.40); RED CELL DISTRIBUTION WIDTH 16.2 % (11.6-13.7); WHITE BLOOD COUNT (AUTO) 7.9 K/uL (4.8-10.8)
[2017-09-06 15:36] LABS: BASOPHILS # (AUTO) 0.2 K/uL (0.00-0.22); BASOPHILS % (AUTO) 2.6 % (0.0-2.0); EOSINOPHILS # (AUTO) 0.3 K/uL (0-0.4); EOSINOPHILS % (AUTO) 3.5 % (0.0-4.0); LYMPHOCYTES # (AUTO) 2.1 K/uL (2.5-16.5); LYMPHOCYTES % (AUTO) 26.4 % (20.5-51.1); MONOCYTES # (AUTO) 0.5 K/uL (0.8-1.0); MONOCYTES % (AUTO) 5.9 % (1.7-9.3); NEUTROPHILS # (AUTO) 4.8 K/uL (1.8-7.7); NEUTROPHILS % (AUTO) 61.6 % (42.2-75.2); PLATELET COUNT (AUTO) 201 K/uL (140-450)
--- NOTE | 2017-09-06 15:50 | NUR ---
CRITICAL LABS: PTT 122.8, LACTIC ACID 3.1. MD NOTIFIED. WILL HOLD HEPARIN CONTINUOUS INFUSION FOR ONE HOUR PER PROTOCOL.
[2017-09-06 16:00] VITALS: BP 136/77
--- NOTE | 2017-09-06 16:43 | NUR ---
[facility] SPOKE WITH TODD REGARDING TRANSFER SHE STATED STILL WORKING ON IT AND WILL CALL BACK WHEN BED AVAILABLE.
--- NOTE | 2017-09-06 17:00 | NUR ---
RE-STARTED HEPARIN DRIP AT 7 ML/HOUR. VERIFIED DOSE RATE WITH BHASKAR FROM PHARMACY. WILL CONTINUE TO MONITOR PT.
--- NOTE | 2017-09-06 17:42 | NUR ---
ATTEMPTED TO REACH PERSON TO NOTIFY IN CHART (CHILD: RICKI) HOWEVER FAMILY MEMBER DID NOT SCIENTIFIC AIDE PHONE AND VOICE MAIL BOX WAS NOT SET UP. WILL ATTEMPT TO CALL AGAIN AND/OR ENDORSE TO PROFESSIONAL APPLICATION DESIGNER. Addendum: 09/06/17 at 1819 by Candace Avila Meng, RN CHILD: RICKI SUMA [phone]
--- NOTE | 2017-09-06 18:23 | NUR ---
ATTEMPTED TO REACH SON A SECOND TIME. AUTOMATED ANSWERING SERVICES STATES "THE PERSON YOU ARE CALLING CANNOT ACCEPT CALLS AT THIS TIME". WILL ENDORSE TO HANDBAG OPERATOR.
--- NOTE | 2017-09-06 19:34 | NUR ---
RE-STARTED HEPARIN DRIP AT RATE OF 7ML/HOUR AT REAL TIME 1700. EMAR TIMING IS INCORRECT.
--- NOTE | 2017-09-06 19:40 | NUR ---
ENDORSED PLAN OF CARE TO DANCE ENTERTAINER RN. PT IN STABLE CONDITION.
--- NOTE | 2017-09-06 19:41 | NUR ---
RECEIVED PT FROM RACHELLE FERRARO PT IS AAOX4 AMBULATORY IV ON RT HAND ON HEPARIN DRIP 700 UNITS/H NOT SIGNS OF BLEEDING FLAVIA CATH FOR DIALYSIS ON RT UPPER CHEST IV SHUNT ONLEFT UPPER ARM AND AV SHUNT OLD NOT WORKING ON RT UPPER ARM PT PENDING TO COLLECT STOOL SHE VERBALIZED TO HAD HAVE LOOSE STOOL BUT NOT WATERY , THEN PENDING TO COLLECT A NEW SAMPLE BECAUSE THE PREVIOUS SAMPLE WAS URINE WITH STOOL THE DR RESIDENT WAS NOTIFY AND A NEW SAMPLE WILL BE COLLECTED FOR C DIF INITIAL ASSESSMENT DONE
[2017-09-06 20:00] VITALS: BP 91/46
[2017-09-06] MEDS ORDERED: INSULIN NPH HUM/REG INSULIN HM 100 UNIT/ML 10 ML VIAL SUBQ SCH (21:00)
[2017-09-06] MEDS ORDERED: METOPROLOL 25 MG TAB PO SCH (21:00)
--- NOTE | 2017-09-06 21:00 | NUR ---
PT DENIES ANY CHEST PAIN PT ON HEPARIN DRIN 700 UNITS/H INFUSING WELL ON RT HAND
--- NOTE | 2017-09-06 22:00 | NUR ---
BLOOD SUGAR 151 WAS COVERAGE WITH 2 UNITS HUMALOG SUBQ ON RT ARM FOLLOW PROTOCOL PT REFUSED HUMULIN 70/30 15 UNIT SUBQ PT SAID THAT SHE IS POOR FEEDING AND SHE HAS DIARRHEA SHE REFUSED TO HAVE HUMULIN AT HIS TIME
[2017-09-06] MEDS ORDERED: HYDROcodone/APAP 5/325 MG 1 TAB TAB PO SCH (23:00)
--- NOTE | 2017-09-06 23:45 | NUR ---
PTT 29.8 WE WILL FOLLOW HEPARIN PROTOCOL
[2017-09-07] VITALS: BP 89/45
--- NOTE | 2017-09-07 00:08 | NUR ---
IV PUSH HEPARIN 4000 UNITS GIVEN PROTOCOL
[2017-09-07] MEDS: hePARIN / DEXT 5% PREMIX 250 ML IV SCH (00:09)
--- NOTE | 2017-09-07 00:09 | NUR ---
STARTED HEPARIN 1000 UNITS/H AND WILL FOLLOW HEPARIN PROTOCOL PT DENIES ANY DISCOMFORT O BLEEDING
[2017-09-07 00:42] VITALS: BP 89/45
--- NOTE | 2017-09-07 02:30 | NUR ---
TROMBONE SLIDE ASSEMBLER DARREN FROM [facility] WILL CALL BACK TO GIVE A BED # AND NURSE TOGIVE A REPORT
--- NOTE | 2017-09-07 03:06 | NUR ---
HERLINDA HISTORICAL SITE GUIDE OF [facility] DIDN'T CALL BACK FOR BED.I CALLED HER IN [phone] AND TALKED TO HER.SHE GAVE ME ROOM.PT IS GOING TO ROOM 307.JAMES WILL CALL [facility] [phone] AND GIVE THEM REPORT.
--- NOTE | 2017-09-07 03:35 | NUR ---
AMBULANCE [facility] IS HERE TO VENEER SHEET REPAIRER THE PT REPORT GIVEN AT BED SIDE PT IS TRANSFER TO [facility] TO ROOM 307 ANT TEL TO GIVE A REPORT IS [phone] . PT IS TRANSFER ON HEPARIN DRIP 1000UNITS/H IV ON RT HAND INFUSING WELL . ALL PROTOCOL FOR DISCHARGE COMPLETE ARM BAND RE ASPEN TELE BOX REMOVED, PT IS TRANSFER FOR CORONARY ANGIOGRAM UNDER DR BELLAMY.
--- NOTE | 2017-09-07 03:40 | NUR ---
REPORT GIVEN TO MARK FERRARO PTGOING TO [facility] TO ROOM # 307 TELEPHONE #
--- NOTE | 2017-09-08 07:46 | NUR ---
[facility] FAXED ER REPORT, H&P, CONSULTS AND DISCHARGE SUMMARY TO [facility] [phone] PHONE [phone]
== END 2017-09-07 03:35 | disposition short-term general hospital (02) | DRG 280 ==
LOC: MED 05:57 → MTU 13:56
PROVIDERS: ADMIT Family Medicine; ATTEND Family Medicine
DX: I21.4 Non-ST elevation (NSTEMI) myocardial infarction (principal); N18.6 End stage renal disease; N17.0 Acute kidney failure with tubular necrosis; I13.2 Hypertensive heart and chronic kidney disease with heart failure and with stage 5 chronic kidney disease, or end stage renal disease; D68.59 Other primary thrombophilia; E87.1 Hypo-osmolality and hyponatremia; E44.1 Mild protein-calorie malnutrition; E11.22 Type 2 diabetes mellitus with diabetic chronic kidney disease; K21.9 Gastro-esophageal reflux disease without esophagitis; I50.9 Heart failure, unspecified; I25.10 Atherosclerotic heart disease of native coronary artery without angina pectoris; I44.7 Left bundle-branch block, unspecified; E11.65 Type 2 diabetes mellitus with hyperglycemia; E11.51 Type 2 diabetes mellitus with diabetic peripheral angiopathy without gangrene; D64.9 Anemia, unspecified; E66.3 Overweight; R74.0 Nonspecific elevation of levels of transaminase and lactic acid dehydrogenase [LDH]; I35.0 Nonrheumatic aortic (valve) stenosis; E78.5 Hyperlipidemia, unspecified; Z99.2 Dependence on renal dialysis; Z88.8 Allergy status to other drugs, medicaments and biological substances; Z79.82 Long term (current) use of aspirin; Z79.899 Other long term (current) drug therapy; Z86.73 Personal history of transient ischemic attack (TIA), and cerebral infarction without residual deficits; Z95.5 Presence of coronary angioplasty implant and graft; Z90.49 Acquired absence of other specified parts of digestive tract; Z89.412 Acquired absence of left great toe; Z83.3 Family history of diabetes mellitus; Z79.4 Long term (current) use of insulin; Z68.28 Body mass index [BMI] 28.0-28.9, adult
CPT/HCPCS: 36415; 36600; 71045; 80048; 80053; 82150; 82803; 82948; 83605; 83690; 83735; 83880; 84100; 84439; 84443; 84484; 85025; 85610; 85730; 87040; 87070; 87081; 93005; 93970; 96374; 99291; C1758; J1644; J1815; J2405; J7030; Q0092

== ENCOUNTER 2017-11-02 06:15 | Inpatient (IN) | payer OTHER ==
[2017-11-02] VITALS (7 sets, daily range): BP systolic 127–199; BP diastolic 56–87
[~2017-11-02] VITALS: Ht 152.4 cm; Wt 61.7 kg
[~2017-11-02 06:15] MED LIST changes: +ACET-1182 PO; +ALBU3SOL83 IH; +AMIO200T10 PO; -ASPI-1677 PO; +ASPI81CT95 PO; +ATOR20TA40 PO; +CALC200T38 PO; +D50SYR IVP; +DOCU-299 PO; -ERGO2000 PO; +GLUC-805 FS; +HEPA-133 IV; +HEPA500056 IV; +HUM7030 SUBQ; +HUMSLIDE SUBQ; +Heparin Per Pharmacy MC; +ISOS30TE35 PO; +ISOS60TE3 PO; -LIP80 PO; +LISI-424 PO; -LORA10TA19 PO; -METO25TA PO; +METOPROLOL TARTRATE PO; -NIFE60TE5 PO; +NITR0.4T1 SL; -OMEP20TC12 PO; +ONDA2SOL45 IVP; +PANT40EC28 PO; +SERT-146 PO; -SEVE800T6 PO; -VITA1TAB44 PO; +ZOLP5TAB1 PO
--- NOTE | 2017-11-02 06:16 | NUR ---
BIBA FROM WITH C/O RESP DISTRESS, SAO2 80% DIMNISHED, ON CPAP
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
--- NOTE | 2017-11-02 06:19 | NUR ---
PT PUT ON BI-PAP AT THIS TIME
--- NOTE | 2017-11-02 06:20 | NUR ---
FINDINGS OF L GREATER TOE AMPUTATION, UPON ASSESSMENT.
--- NOTE | 2017-11-02 06:24 | NUR ---
PT BIBA FOR RESPIRATORY DISTRESS ON CPAP, PT PLACED ON GHADA V60 BIPAP SETTINGS 12/6 RR12 FIO2 21% ALARMS ON AND AUDIBLE AND AMBU BAG AT SIDE OF BIPAP I\L TX GIVEN WITH DUONEB 3ML WITH NO ADVERSE REACTION POST TX PT WEARING FACE MASK LARGE WITH PROTETIC GEL IN PLACE PT IS AWAKE
[2017-11-02] MEDS ORDERED: NACL 0.9% 500 ML IV ONE (06:25)
[2017-11-02] MEDS ORDERED: ALBUTEROL SULFATE/IPRATROPIU 3 ML SOL IH ONE (06:25)
--- NOTE | 2017-11-02 06:31 | NUR ---
EKG PERFORMED AT BEDSIDE. PT COVERED IN GOWN AND BLANKET. NORMAL SINUS RHYTHM
--- NOTE | 2017-11-02 06:52 | NUR ---
abg drawn on rr without incident and results given to dr. fair and increased fio2 to 40%
--- NOTE | 2017-11-02 07:10 | NUR ---
REPORT RECIEVED FROM MILAGRO FERRARO
--- NOTE | 2017-11-02 07:20 | NUR ---
IV DISCONTINUED, INFILTRATED
[2017-11-02 07:27] LABS: BASOPHILS % (AUTO) 0.5 % (0.0-2.0); EOSINOPHILS # (AUTO) 0.3 K/uL (0-0.4); EOSINOPHILS % (AUTO) 3.9 % (0.0-4.0); HEMATOCRIT 34.1 % (36-48); HEMOGLOBIN 10.7 g/dL (12.0-16.0); LYMPHOCYTES % (AUTO) 23.9 % (20.5-51.1); MEAN CORPUSCULAR HEMOGLOBIN 28 pg (27-31); MEAN CORPUSCULAR HGB CONC 31 g/dL (33-37); MEAN CORPUSCULAR VOLUME 89.4 fL (80-94); MONOCYTES # (AUTO) 0.3 K/uL (0.8-1.0); MONOCYTES % (AUTO) 3.7 % (1.7-9.3); NEUTROPHILS # (AUTO) 5.6 K/uL (1.8-7.7); PLATELET COUNT (AUTO) 208 K/uL (140-450); RED BLOOD CELL COUNT(AUTO) 3.82 MIL/uL (4.20-5.40); RED CELL DISTRIBUTION WIDTH 18.4 % (11.6-13.7); WHITE BLOOD COUNT (AUTO) 8.2 K/uL (4.8-10.8)
[2017-11-02 08:02] LABS: ALBUMIN 3.5 g/dL (3.4-5.0); CARBON DIOXIDE 28.1 mmol/L (21-32); TOTAL BILIRUBIN 0.3 mg/dL (0.0-1.0)
[2017-11-02 08:05] LABS: CREATININE 8.1 mg/dL (0.6-1.3); POTASSIUM 6.1 mmol/L (3.5-5.1)
[2017-11-02] MEDS ORDERED: SODIUM POLYSTYRENE 15 GM/60 ML UDBTL PO ONE ×2 (08:20→09:25)
[2017-11-02] MEDS ORDERED: NITROGLYCERIN 2% 1 GM PKT TP ONE (08:20)
[2017-11-02] MEDS ORDERED: ONDANSETRON 4 MG TAB ONE (08:58)
[2017-11-02] MEDS ORDERED: ACETAMINOPHEN 325 MG TAB PO PRN (09:20)
[2017-11-02] MEDS ORDERED: HYDROcodone/APAP 5/325 MG 1 TAB TAB PO PRN (09:20)
[2017-11-02] MEDS ORDERED: ZOLPIDEM 5 MG TAB PO PRN (09:20)
[2017-11-02] MEDS ORDERED: DOCUSATE SODIUM 100 MG GELCAP PO PRN (09:20)
[2017-11-02] MEDS ORDERED: MORPHINE SULFATE 2 MG/ML SYR IVP PRN (09:20)
[2017-11-02] MEDS ORDERED: LORazepam 2 MG/ML VIAL IM/IVP PRN (09:20)
--- NOTE | 2017-11-02 09:40 | NUR ---
MIDLINE INSERTION SUCCESFUL, PATIENT TOLERATED WELL.
[2017-11-02] MEDS ORDERED: ALBUTEROL SULFATE/IPRATROPIU 3 ML SOL IH PRN (09:45)
--- NOTE | 2017-11-02 10:21 | NUR ---
Patient will be admitted to care of DR. CHAPPELL. Admited to TELE. Will go to room 114. Belongings list completed. Report to AVILA FERRARO.
--- NOTE | 2017-11-02 10:30 | NUR ---
RECEIVED BEDSIDE REPORT FROM ER NURSE. PATIENT IS AWAKE, ALERT AND ORIENTEDX4. NO SIGNS OF DISTRESS ON BIPAP. FALL RISK PROTOCOL IN PLACE. CONTACT PRECAUTIONS IN PLACE. NO IV OR BP ON BOTH ARMS, SIGNS IN PLACE. IRISH SPEAKER. NPO EXCEPT MEDS. PATIENT USES BEDPAN. MARY MIDLINE, CLEAN, DRY AND INTACT. L ARM FAILED SHUNT, SURGICAL SCAR INTACT AND HEELING. BED IN LOW POSITION. CALL LIGHT WITHIN REACH. WILL CONTINUE TO MONITOR THE PATIENT.
[2017-11-02 10:56] LABS: PROTHROMBIN TIME 10.2 secs (10.8-13.4)
[2017-11-02 11:19] LABS: AMYLASE 29 U/L (25-115); FREE T4 (FREE THYROXINE) 1.16 ng/dL (0.76-1.46); LIPASE 132 U/L (73-393); PHOSPHORUS 6.2 mg/dL (2.5-4.9); THYROID STIMULATING HORMONE 1.15 uIU/mL (0.34-3.74)
[2017-11-02 11:22] LABS: MAGNESIUM 4.3 mg/dL (1.8-2.4)
--- NOTE | 2017-11-02 12:00 | NUR ---
PATIENT SIGNED DIALYSIS CONSENT, DIALYSIS TO START NOW
[2017-11-02] MEDS: ALBUTEROL SULFATE/IPRATROPIU 3 ML SOL IH SCH ×2 (12:50→19:36)
--- NOTE | 2017-11-02 12:50 | NUR ---
PATIENT TOLERATING DIALYSIS WELL. WILL CONTINUE TO MONITOR THE PATIENT.
[2017-11-02] MEDS ORDERED: DEXTROSE 50% 50 ML SYR IVP PRN (13:40)
--- NOTE | 2017-11-02 13:50 | NUR ---
CALLED TO PT'S ROOM DIALYSIS NURSE WANTED TO KNOW IF PT COULD COME OF BIPAP. ASKED DR. CHAPPELL AND SHE ORDERED TO HAVE BIPAP PRN FOR SOB AND DISTRESS AND PT WAS PLACED ON 3LNC WITH NO SIGNS OF DISTRESS NOTED
[2017-11-02] MEDS: ONDANSETRON 4 MG/2 ML VIAL IM/IVP PRN (14:41)
--- NOTE | 2017-11-02 14:46 | NUR ---
PATIENT NAUSEATED. ADMINISTERED PRN ZOFRAN. PATIENT TOLERATED WELL. NO SIGNS OF DISTRESS ON 3L NC. BED IN LOW POSITION. DIALYSIS NURSE AT BEDSIDE
[2017-11-02] MEDS ORDERED: NITROGLYCERIN 0.4 MG TAB SL PRN ×2 (15:00→15:03)
--- NOTE | 2017-11-02 15:00 | NUR ---
HD DONE. 2.3 L OUT. PATIENT TOLERATED HD WELL
[2017-11-02] MEDS ORDERED: TICA90TA PO (16:10)
[2017-11-02] MEDS: NACL 0.9% 1,000 ML IV SCH (17:08)
[2017-11-02] MEDS: SEVELAMER CARBONATE 800 MG TAB PO SCH (17:08)
[2017-11-02] MEDS: BLOOD GLUCOSE MONITORING 1 DEV DEV FS SCH ×2 (17:14→20:11)
[2017-11-02] MEDS: INSULIN LISPRO SLIDING SCALE 100 UNITS/ML VIAL SUBQ PRN ×2 (17:23→20:34)
--- NOTE | 2017-11-02 17:25 | NUR ---
ADMINISTERED MEDS. PATIENT TOLERATED WELL. SHE COMPLAINS OF BEING HUNGRY, TOLD HER DINNER WILL BE SERVED SOON. PATIENT SAID OK. WILL CONTINUE TO MONITOR
--- NOTE | 2017-11-02 18:00 | NUR ---
PATIENT IS EATING LUNCH.NO SIGNS OF DISTRESS ON 3L NC. WILL CONTINUE TO MONITOR
[2017-11-02 18:34] LABS: ANION GAP 11.1 (8-16); CARBON DIOXIDE 32.7 mmol/L (21-32); POTASSIUM 3.8 mmol/L (3.5-5.1)
[2017-11-02 18:55] LABS: CREATININE 4.5 mg/dL (0.6-1.3)
[2017-11-02] MEDS ORDERED: LOVENOX 1MG/KG Q12H SUBQ SCH (19:00)
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
--- NOTE | 2017-11-02 19:28 | NUR ---
RECEIVED BEDSIDE REPORT FROM DAY SHIFT NURSE OSCAR RN, PT STABLE, NO DISTRESS NOTED, CENTRAL LINE TO R UPPER ARM DOUBLE LUMEN, PATENT, INTACT, R CHEST DIALYSIS PERMACATH INTACT, PT ON 3LPM O2 VIA NC, NO SOB, DENIES ANY PAIN, INITIAL ASSESSMENT DONE, ALL SAFETY PRECAUTION MET, WILL CONTINUE TO MONITOR.
--- NOTE | 2017-11-02 19:40 | NUR ---
COMPLETED HHN TREATMENT VIA AEROSOL MASK OF DUONEB THAT WAS TOLERATED WELL. PLACED PATIENT ONTO BIPAP 01/21 RATE 12 FIO2 35%. HR 76 SPO2 100. WILL CONTINUE TO MONITOR
[2017-11-02] MEDS: ATORVASTATIN 20 MG TAB PO SCH (20:05)
[2017-11-02] MEDS: AMIODARONE 200 MG TAB PO SCH (20:06)
[2017-11-02] MEDS: METOPROLOL 25 MG TAB PO SCH (20:06)
--- NOTE | 2017-11-02 20:09 | NUR ---
PATIENT WAS NOT TOLERATING BIPAP WELL. TOOK OFF BIPAP AND PLACED ON 2L/M VIA NASAL CANNULA. RN AT BEDSIDE AND WILL CONTINUE TO MONITOR.
[2017-11-02] MEDS: INSULIN NPH HUM/REG INSULIN HM 100 UNIT/ML 10 ML VIAL SUBQ SCH ×2 (20:21→20:35)
[2017-11-02] MEDS ORDERED: ENOXAPARIN 60 MG/0.6 ML SYR SUBQ SCH (20:30)
--- NOTE | 2017-11-02 20:35 | NUR ---
DUE MEDICATION ADMINISTERED, BLOOD SUGAR CHECKED 258, PT STATED THAT SHE USUALLY DO NOT GET 15UNITS OF HUMULIN AT HOME, NOTIFIED DR. BUTLER REGARDING PT CONCERNS, STATED UNDERSTANDING AND TO ONLY GIVE 6 UNITS PER SLIDING SCALE, PT TOLERATED WELL, NO DISTRESS NOTED, CALL LIGHT WITHIN REACH, WILL CONTINUE TO MONITOR.
[2017-11-03] VITALS: BP 117/54
--- NOTE | 2017-11-03 00:10 | NUR ---
CHECKED ON PT, PT RESTING, NO DISTRESS NOTED, V/S TAKEN, WNL, CALL LIGHT WITHIN REACH, WILL CONTINUE TO MONITOR.
[2017-11-03 04:00] VITALS: BP 122/56
--- NOTE | 2017-11-03 04:11 | NUR ---
CHECKED ON PT, PT SLEEPING, V/S TAKEN, WNL, CALL LIGHT WITHIN REACH, WILL CONTINUE TO MONITOR.
[2017-11-03] MEDS: BLOOD GLUCOSE MONITORING 1 DEV DEV FS SCH ×4 (05:57→21:00)
--- NOTE | 2017-11-03 05:57 | NUR ---
RN AT BEDSIDE PULLING LABS. WILL FOLLOW UP TO HAVE PATIENT PERFORM INCENTIVE SPIROMETER.
[2017-11-03] MEDS: PANTOPRAZOLE 40 MG TABEC PO SCH (06:12)
--- NOTE | 2017-11-03 06:12 | NUR ---
DUE MEDICATION ADMINISTERED, PT TOLERATED WELL, NO DISTRESS NOTED, CALL LIGHT WITHIN REACH, WILL CONTINUE TO MONITOR.
[2017-11-03 06:27] LABS: T4 (THYROXINE) 8.2 ug/dL (4.5-12.0)
[2017-11-03] MEDS: ALBUTEROL SULFATE/IPRATROPIU 3 ML SOL IH SCH ×4 (06:50→19:52)
[2017-11-03 07:05] LABS: BASOPHILS % (AUTO) 0.7 % (0.0-2.0); EOSINOPHILS # (AUTO) 0.4 K/uL (0-0.4); EOSINOPHILS % (AUTO) 5.5 % (0.0-4.0); HEMATOCRIT 27.9 % (36-48); HEMOGLOBIN 9.1 g/dL (12.0-16.0); LYMPHOCYTES # (AUTO) 1.7 K/uL (2.5-16.5); LYMPHOCYTES % (AUTO) 24.8 % (20.5-51.1); MEAN CORPUSCULAR HEMOGLOBIN 29 pg (27-31); MEAN CORPUSCULAR HGB CONC 33 g/dL (33-37); MEAN CORPUSCULAR VOLUME 88.2 fL (80-94); MONOCYTES # (AUTO) 0.7 K/uL (0.8-1.0); MONOCYTES % (AUTO) 10.4 % (1.7-9.3); NEUTROPHILS # (AUTO) 3.9 K/uL (1.8-7.7); NEUTROPHILS % (AUTO) 58.6 % (42.2-75.2); PLATELET COUNT (AUTO) 169 K/uL (140-450); RED BLOOD CELL COUNT(AUTO) 3.16 MIL/uL (4.20-5.40); RED CELL DISTRIBUTION WIDTH 18.3 % (11.6-13.7); WHITE BLOOD COUNT (AUTO) 6.7 K/uL (4.8-10.8)
--- NOTE | 2017-11-03 07:24 | NUR ---
ENDORSED PT TO DAY SHIFT NURSE OSCAR RN, PT STABLE, NO DISTRESS NOTED, CALL LIGHT WITHIN REACH
--- NOTE | 2017-11-03 07:25 | NUR ---
RECEIVED BEDSIDE REPORT FROM FISH PROCESSING SUPERVISOR NURSE. PATIENT IS AWAKE, ALERT AND ORIENTEDX4. NO SIGNS OF DISTRESS ON 3L NC. FALL RISK PROTOCOL IN PLACE. BEDSIDE COMMODE IN PLACE. AMBULATE W ASSISTANCE. NO B/P OF VENIPUNCTURE ON BOTH ARMS. MARY MIDLINE. CLEAN,DRY AND INTACT. INFUSING NS AT 10ML/HR. R CHEST DIALYSIS CATH IS CLEAN, DRY AND INTACT. CONTACT PRECAUTIONS IN PLACE. BED IN LOW POSITION. CALL LIGHT WITHIN REACH. WILL CONTINUE TO MONITOR
[2017-11-03 07:55] LABS: ANION GAP 12.3 (8-16); CARBON DIOXIDE 29.8 mmol/L (21-32); POTASSIUM 4.1 mmol/L (3.5-5.1)
[2017-11-03 08:00] VITALS: BP 122/49
[2017-11-03 08:02] LABS: CHOL/HDL RATIO 2.2 (1-4.5)
[2017-11-03 08:13] LABS: CREATININE 5.9 mg/dL (0.6-1.3)
[2017-11-03 08:21] LABS: MAGNESIUM 2.5 mg/dL (1.8-2.4); PHOSPHORUS 6.2 mg/dL (2.5-4.9)
--- NOTE | 2017-11-03 08:41 | NUR ---
PATIENT HAS BEEN SCREENED AND CATEGORIZED MODERATE NUTRITION RISK. PATIENT WILL BE SEEN WITHIN 3-5 DAYS OF ADMISSION. 11/04/17 11/06/[address]
[2017-11-03] MEDS: INSULIN NPH HUM/REG INSULIN HM 100 UNIT/ML 10 ML VIAL SUBQ SCH ×2 (08:58→21:00)
[2017-11-03] MEDS ORDERED: CLOPIDOGREL 75 MG TAB PO SCH (09:00)
--- NOTE | 2017-11-03 09:00 | NUR ---
DID NOT GIVE HUMALIN PER DR LOCK, PATIENT HAS BS OF 118 AND SHE SAYS SHE DOES NOT NOT TAKE 15 UNITS SHE ONLY TAKES 5 UNITS AT HOME. SO PER DR ALLY FRAUSTO
[2017-11-03] MEDS: SEVELAMER CARBONATE 800 MG TAB PO SCH ×3 (09:01→17:21)
[2017-11-03] MEDS: ASPIRIN 81 MG TAB.CHEW PO SCH (09:02)
[2017-11-03] MEDS: LISINOPRIL 5 MG TAB PO SCH (09:02)
[2017-11-03] MEDS: VIT-B COMP/VIT-C/FOLIC ACID 1 TAB PO SCH (09:03)
[2017-11-03] MEDS: AMIODARONE 200 MG TAB PO SCH ×2 (09:04→21:24)
[2017-11-03] MEDS: SERTRALINE 50 MG TAB PO SCH (09:04)
[2017-11-03] MEDS: ISOSORBIDE MONONITRATE 30 MG TABER PO SCH (09:04)
[2017-11-03] MEDS: METOPROLOL 25 MG TAB PO SCH ×2 (09:05→21:24)
--- NOTE | 2017-11-03 09:06 | NUR ---
ADMINISTERED MEDS. PATIENT TOLERATED WELL. BED IN LOW POSITION. CALL LIGHT WITHIN REACH. WILL CONTINUE TO MONITOR THE PATIENT
[2017-11-03] MEDS: NACL 0.9% 1,000 ML IV SCH (09:16)
--- NOTE | 2017-11-03 10:51 | NUR ---
PATIENT COMPLAINS OF BEING HUNGRY. I CALLED [facility] AND LEFT A MESSAGE FOR A SNACK FOR THE PATIENT. PATIENT IS [facility] DIET.
[2017-11-03 12:00] VITALS: BP 142/88
[2017-11-03] MEDS: INSULIN LISPRO SLIDING SCALE 100 UNITS/ML VIAL SUBQ PRN ×3 (12:51→21:29)
--- NOTE | 2017-11-03 12:58 | NUR ---
ADMINISTERED MEDS. PATIENT TOLERATED WELL. PATIENT IS SITTING ON A CHAIR SPEAKING TO HER . NO SIGNS OF DISTRESS ON ROOM AIR. O2SAT IS 98%. WILL CONTINUE TO MONITOR. CALL LIGHT WITHIN REACH
[2017-11-03] MEDS ORDERED: TICA90TA PO (14:21)
[2017-11-03] MEDS ORDERED: BRILINTA 90 MG TABLET PO SCH (14:32)
[2017-11-03] MEDS: ONDANSETRON 4 MG/2 ML VIAL IM/IVP PRN (15:17)
--- NOTE | 2017-11-03 15:21 | NUR ---
ADMINISTERED PRN ANTI NAUSEA MED. PATIENT TOLERATED WELL. BED IN LOW POSITION. PATIENT SITTING ON BED. WILL CONTINUE TO MONITOR THE PATIENT
[2017-11-03 16:00] VITALS: BP 139/67
[2017-11-03 17:14] LABS: BILIRUBIN,URINE NEGATIVE (NEGATIVE); BLOOD, URINE TRACE-L (NEGATIVE); COLOR,URINE YELLOW (YELLOW); LEUKOCYTE ESTERASE ,URINE NEGATIVE (NEGATIVE); NITRITE, URINE NEGATIVE (NEGATIVE); PH,URINE 7.5 (5.0-9.0); UGLUCOSE 1+ (NEGATIVE)
[2017-11-03 17:17] LABS: APPEARANCE,URINE HAZY (CLEAR)
[2017-11-03 17:25] LABS: BARBITURATE, URINE NEG. ng/ml (NEG <=200); BENZODIAZEPINE, URINE NEG. ng/mL (NEG <=200); CANNABINOID, URINE NEG. ng/mL (NEG <=50); COCAINE, URINE NEG. ng/mL (NEG <=300); OPIATE, URINE NEG. ng/mL (NEG <=2000); PHENCYCLIDINE SCREEN,URINE NEG. ng/mL (NEG <=25)
--- NOTE | 2017-11-03 17:30 | NUR ---
PATIENT IS EATING DINNER. NO SIGNS OF DISTRESS. BED IN LOW POSITION. CALL LIGHT WITHIN REACH. WILL CONTINUE TO MONITOR THE PATIENT
[2017-11-03 17:32] LABS: RBC,URINE 0-5 (RARE) /HPF (0-5)
--- NOTE | 2017-11-03 19:05 | NUR ---
GAVE BEDSIDE REPORT TO FURNITURE DETAILER NURSE. PATIENT ENDORSED IN STABLE CONDITION.
--- NOTE | 2017-11-03 19:06 | NUR ---
RECEIVED REPORT FROM DAY SHIFT NURSE. AAOX4. NO C/O PAIN OR SOB. PT ON ROOM AIR. PT HAS MIDLINE TO RIGHT UPPER ARM, NS AT 10 ML INFUSING WELL. PT HAS RIGHT CHEST DIALYSIS CATH, DRESSING CLEAN, DRY AND INTACT. FALL PRECAUTION IN PLACE. CALL LIGHT WITHIN REACH.
[2017-11-03 20:00] VITALS: BP 122/89
[2017-11-03] MEDS: BRILINTA 90 MG TABLET PO SCH (21:23)
[2017-11-03] MEDS: ATORVASTATIN 20 MG TAB PO SCH (21:23)
--- NOTE | 2017-11-03 21:30 | NUR ---
BLOOD SUGAR CHECKED 167. DR. BUTLER MADE AWARE AND ORDERED TO HOLD HUMULIN AND GIVE HUMALOG SUBQ PER SLIDING SCALE.
--- NOTE | 2017-11-03 22:35 | NUR ---
PT ASKED FOR SNACK. SNACK PROVIDED. NEEDS MET AT THIS TIME. SAFETY PRECAUTION IN PLACE. CALL LIGHT WITHIN REACH.
[2017-11-04] VITALS: BP 149/55
--- NOTE | 2017-11-04 01:10 | NUR ---
PT SLEEPING BUT EASILY AROUSABLE. NO S/S OF PAIN OR RESP DISTRESS.
--- NOTE | 2017-11-04 03:30 | NUR ---
PT SLEEPING. RESP EVEN AND UNLABORED. NO S/S OF PAIN OR DISCOMFORT.
[2017-11-04 04:00] VITALS: BP 138/55
--- NOTE | 2017-11-04 05:45 | NUR ---
PT'S MIDLINE DRESSING SOILED. DRESSING CHANGED. PT DENIES PAIN. NO RESP DISTRESS NOTED. NO C/O NAUSEA OR VOMITING.
[2017-11-04] MEDS: PANTOPRAZOLE 40 MG TABEC PO SCH (06:19)
--- NOTE | 2017-11-04 06:30 | NUR ---
BLOOD SUGAR CHECKED 148. NO INSULIN COVERAGE NEEDED.
[2017-11-04 06:35] LABS: BASOPHILS % (AUTO) 0.4 % (0.0-2.0); EOSINOPHILS # (AUTO) 0.4 K/uL (0-0.4); EOSINOPHILS % (AUTO) 7.1 % (0.0-4.0); HEMATOCRIT 26.6 % (36-48); HEMOGLOBIN 8.6 g/dL (12.0-16.0); LYMPHOCYTES # (AUTO) 2.1 K/uL (2.5-16.5); LYMPHOCYTES % (AUTO) 34.4 % (20.5-51.1); MEAN CORPUSCULAR HEMOGLOBIN 28 pg (27-31); MEAN CORPUSCULAR HGB CONC 32 g/dL (33-37); MEAN CORPUSCULAR VOLUME 87.7 fL (80-94); MONOCYTES # (AUTO) 0.7 K/uL (0.8-1.0); MONOCYTES % (AUTO) 10.8 % (1.7-9.3); NEUTROPHILS # (AUTO) 2.9 K/uL (1.8-7.7); NEUTROPHILS % (AUTO) 47.3 % (42.2-75.2); PLATELET COUNT (AUTO) 160 K/uL (140-450); RED BLOOD CELL COUNT(AUTO) 3.03 MIL/uL (4.20-5.40); RED CELL DISTRIBUTION WIDTH 18.6 % (11.6-13.7); WHITE BLOOD COUNT (AUTO) 6.1 K/uL (4.8-10.8)
[2017-11-04 06:59] LABS: ANION GAP 13.2 (8-16); CARBON DIOXIDE 28.4 mmol/L (21-32); POTASSIUM 4.6 mmol/L (3.5-5.1)
--- NOTE | 2017-11-04 07:00 | NUR ---
RECEIVED CRITICAL LAB VALUE CREATININE 7.6. DR. CHAPPELL MADE AWARE. PT WILL DO HEMODIALYSIS TODAY.
[2017-11-04 07:01] LABS: CREATININE 7.6 mg/dL (0.6-1.3)
[2017-11-04 07:03] LABS: MAGNESIUM 2.7 mg/dL (1.8-2.4); PHOSPHORUS 6.6 mg/dL (2.5-4.9)
--- NOTE | 2017-11-04 07:05 | NUR ---
ENDORSED PT TO DAY SHIFT NURSE. PT IN STABLE CONDITION.
[2017-11-04] MEDS: BLOOD GLUCOSE MONITORING 1 DEV DEV FS SCH ×4 (07:08→21:12)
[2017-11-04] MEDS ORDERED: HEPARIN PER PHARMACY MC PRN (07:10)
[2017-11-04 08:00] VITALS: BP 159/77
[2017-11-04] MEDS: ALBUTEROL SULFATE/IPRATROPIU 3 ML SOL IH SCH ×3 (08:32→20:38)
[2017-11-04] MEDS: INSULIN NPH HUM/REG INSULIN HM 100 UNIT/ML 10 ML VIAL SUBQ SCH ×2 (09:00→21:03)
--- NOTE | 2017-11-04 09:00 | NUR ---
DR MOORE AWARE OF THE HUMULIN DOSE, WILL RECHECK THE ORDER PLACE NEW ORDER. OKAY TO HOLD THE MEDS AT THIS TIME.
[2017-11-04] MEDS: NACL 0.9% 1,000 ML IV SCH (09:16)
[2017-11-04] MEDS: SERTRALINE 50 MG TAB PO SCH (09:43)
[2017-11-04] MEDS: AMIODARONE 200 MG TAB PO SCH ×2 (09:43→21:04)
[2017-11-04] MEDS: VIT-B COMP/VIT-C/FOLIC ACID 1 TAB PO SCH (09:43)
[2017-11-04] MEDS: LISINOPRIL 5 MG TAB PO SCH (09:44)
[2017-11-04] MEDS: ISOSORBIDE MONONITRATE 30 MG TABER PO SCH (09:44)
[2017-11-04] MEDS: METOPROLOL 25 MG TAB PO SCH ×2 (09:44→21:04)
[2017-11-04] MEDS: SEVELAMER CARBONATE 800 MG TAB PO SCH ×4 (09:45→17:14)
[2017-11-04] MEDS: ASPIRIN 81 MG TAB.CHEW PO SCH (09:45)
[2017-11-04] MEDS: BRILINTA 90 MG TABLET PO SCH ×2 (09:45→21:52)
--- NOTE | 2017-11-04 10:23 | NUR ---
ADMISSION CHART REVIEW DONE FAXED INITIAL REVIEW TO [facility] [phone] [facility] [phone].
[2017-11-04 12:00] VITALS: BP 138/72
[2017-11-04] MEDS: ONDANSETRON 4 MG/2 ML VIAL IM/IVP PRN (12:28)
[2017-11-04] MEDS: INSULIN LISPRO SLIDING SCALE 100 UNITS/ML VIAL SUBQ PRN ×3 (12:57→20:59)
--- NOTE | 2017-11-04 15:00 | NUR ---
PT DONE WITH HD. PER HD RONAN BERRY, PT OUTPUT 2500 ML. BP 98/49, HR 56, . PT COMPLAINING OF HUNT NAD FEELS NAUSEATED. ADMINISTERED TYLENOL FOR HUNT. WILL CONTINUE TO MONITOR PT.
--- NOTE | 2017-11-04 15:15 | NUR ---
PT COMPLAINING OF FEELING WARM AND NAUSEA. STATES TO HAVE HUNT. PT STATES THAT SHE FELT DISCOMFORT AFTER HAVING MEDS FROM MORNING. INFORMED HER THAT ALL MEDS THAT WERE ADMINISTERED WERE SCHEDULED ONE. PT CURRENTLY SITTING ON HER CHAIR. COMPLAINING OF HUNT. WILL MEDICATE WITH TYLENOL. VERBALIZED UNDERSTANDING. WILL CONTINUE TO MONITOR PT.
[2017-11-04 16:00] VITALS: BP 123/55
--- NOTE | 2017-11-04 17:24 | NUR ---
PT DENIES SEVELAMER CARBONATE . STATES WILL HAVE MEDS TOMORROW IN MORNING. WILL CONTINUE TO MONITOR PT.
--- NOTE | 2017-11-04 19:10 | NUR ---
ENDORSED PT TO PM NURSE AT BEDSIDE FOR CONTINUITY OF CARE. PT IN STABLE CONDITION.
--- NOTE | 2017-11-04 19:11 | NUR ---
RECEIVED REPORT FROM AM SHIFT NURSE AT PT'S BEDSIDE. PT LYING COMFORTABLY IN BED, ALERT & VERBAL, DENIES ANY PAIN, CALL LIGHT WITHIN REACH. FALL PRECAUTIONS IN PLACE.
[2017-11-04 20:00] VITALS: BP 142/73
[2017-11-04] MEDS: ATORVASTATIN 20 MG TAB PO SCH (21:04)
--- NOTE | 2017-11-04 21:05 | NUR ---
ALL DUE MEDS GIVEN. PT ALERT & AWAKE, VERBALLY RESPONSIVE IN [place], DENIES ANY PAIN, RESPIRATIONS EVEN & UNLABORED. DR MOSS & RESPIRATORY THERAPIST AT BEDSIDE TO EXAMINE PT. PT ABLE TO RETURN DEMONSTRATE PROPER USE OF INCENTIVE SPIROMETER. DENIES NEED TO USE TOILET AT THIS TIME. CALL LIGHT WITHIN REACH.
[2017-11-05] VITALS: BP 145/68
--- NOTE | 2017-11-05 00:34 | NUR ---
ASSISTED PT TO TOILET, ABLE TO AMBULATE WITH FAIR BALANCE. BMx1, SOFT. ASSISTED BACK TO BED. BED ALARM ACTIVATED, FALL PRECAUTIONS IN PLACE. PT DENIES ANY DISCOMFORT. CALL LIGHT PLACED WITHIN REACH.
[2017-11-05 04:00] VITALS: BP 142/68
--- NOTE | 2017-11-05 04:15 | NUR ---
PT RESTING COMFORTABLY IN BED, AWAKE & VERBAL, DENIES ANY DISCOMFORT. DENIES NEED TO USE TOILET AT THIS TIME. CALL LIGHT PLACED WITHIN REACH. WILL CONT TO MONITOR.
[2017-11-05] MEDS: PANTOPRAZOLE 40 MG TABEC PO SCH (06:23)
[2017-11-05] MEDS: BLOOD GLUCOSE MONITORING 1 DEV DEV FS SCH ×2 (06:23→11:30)
--- NOTE | 2017-11-05 07:20 | NUR ---
REPORT GIVEN AT BEDSIDE TO AM SHIFT NURSE.
[2017-11-05] MEDS: ALBUTEROL SULFATE/IPRATROPIU 3 ML SOL IH SCH ×2 (07:21→13:31)
--- NOTE | 2017-11-05 07:21 | NUR ---
RECEIVED REPORT FROM PM NURSE AT THE BEDSIDE. PT SLEEPING ON HER BED. DENIES ANY PAIN. COMPLAINS ABOUT FEELING NAUSEATED. PT STABLE, NO DISTRESS NOTED. ALL SAFETY MEASURE IN PLACE. PLACED CALL LIGHT AND BEDSIDE TABLE NEAR PT. INFORMED TO USE CALL LIGHT FOR ANY HELP. WILL CONTINUE TO MONITOR PT.
[2017-11-05 07:38] LABS: BASOPHILS % (AUTO) 0.4 % (0.0-2.0); EOSINOPHILS # (AUTO) 0.3 K/uL (0-0.4); EOSINOPHILS % (AUTO) 4.9 % (0.0-4.0); HEMATOCRIT 28.7 % (36-48); HEMOGLOBIN 9.2 g/dL (12.0-16.0); LYMPHOCYTES # (AUTO) 1.5 K/uL (2.5-16.5); LYMPHOCYTES % (AUTO) 21.1 % (20.5-51.1); MEAN CORPUSCULAR HEMOGLOBIN 28 pg (27-31); MEAN CORPUSCULAR HGB CONC 32 g/dL (33-37); MEAN CORPUSCULAR VOLUME 87.8 fL (80-94); MONOCYTES # (AUTO) 0.6 K/uL (0.8-1.0); MONOCYTES % (AUTO) 9.3 % (1.7-9.3); NEUTROPHILS # (AUTO) 4.5 K/uL (1.8-7.7); NEUTROPHILS % (AUTO) 64.3 % (42.2-75.2); PLATELET COUNT (AUTO) 162 K/uL (140-450); RED BLOOD CELL COUNT(AUTO) 3.26 MIL/uL (4.20-5.40); RED CELL DISTRIBUTION WIDTH 18.8 % (11.6-13.7)
[2017-11-05 07:53] LABS: ANION GAP 12.7 (8-16); CARBON DIOXIDE 25.8 mmol/L (21-32); POTASSIUM 4.5 mmol/L (3.5-5.1)
[2017-11-05 07:55] LABS: CREATININE 5.3 mg/dL (0.6-1.3)
[2017-11-05 07:57] LABS: MAGNESIUM 2.3 mg/dL (1.8-2.4); PHOSPHORUS 5.8 mg/dL (2.5-4.9)
[2017-11-05 08:00] VITALS: BP 130/61
[2017-11-05] MEDS: SERTRALINE 50 MG TAB PO SCH (09:00)
[2017-11-05] MEDS: ISOSORBIDE MONONITRATE 30 MG TABER PO SCH (09:00)
[2017-11-05] MEDS: AMIODARONE 200 MG TAB PO SCH (09:00)
[2017-11-05] MEDS: LISINOPRIL 5 MG TAB PO SCH (09:15)
[2017-11-05] MEDS: SEVELAMER CARBONATE 800 MG TAB PO SCH (09:15)
[2017-11-05] MEDS: VIT-B COMP/VIT-C/FOLIC ACID 1 TAB PO SCH (09:16)
[2017-11-05] MEDS: METOPROLOL 25 MG TAB PO SCH (09:16)
[2017-11-05] MEDS: NACL 0.9% 1,000 ML IV SCH (09:16)
[2017-11-05] MEDS: ASPIRIN 81 MG TAB.CHEW PO SCH (09:17)
[2017-11-05] MEDS: BRILINTA 90 MG TABLET PO SCH (09:19)
--- NOTE | 2017-11-05 09:20 | NUR ---
ADMINISTERED MEDS TO PT. REFUSED SOME OF HER MEDS, INDUR, AMIODARONE, SERTRALINE. STATES THAT ITS TOO MANY MEDS. TOLERATED OTHER MEDS WELL. BS 269, ADMINISTERED HUMULIN 5 UNITS ORDERED. NO SIGN OF DISTRESS. PLACED CALL LIGHT WITHIN PTS REACH. INFORMED HER THAT SHE WILL BE DC TODAY. STATES PT FAMILY WILL COME TO RECEIVE HER AROUND 1300 PM. WILL CONTINUE TO MONITOR PT.
[2017-11-05] MEDS: INSULIN NPH HUM/REG INSULIN HM 100 UNIT/ML 10 ML VIAL SUBQ SCH (09:22)
--- NOTE | 2017-11-05 12:30 | NUR ---
CHECKED ON PT. SITTING ON CHAIR. STEADY GAIT. CHECKED HER BS , 302. ADMINISTERED INSULIN PER SLIDING SCALE. INFORMED HER OF HER DC ORDER. PT STATES TO PICK HER UP AROUND 1300. WORKING ON HER DC PAPER. WILL CONTINUE TO MONITOR PT.
[2017-11-05] MEDS: INSULIN LISPRO SLIDING SCALE 100 UNITS/ML VIAL SUBQ PRN (12:54)
[2017-11-05] MEDS ORDERED: LISI5TAB18 PO (15:13)
[2017-11-05] MEDS ORDERED: ISOS20TA13 PO (15:13)
[2017-11-05] MEDS ORDERED: METO25TA PO (15:13)
--- NOTE | 2017-11-05 15:31 | NUR ---
ESAU NOTE SPOKE TO [facility] ESAU ZHOU # [phone] TO GIVE A VERBAL CLINICAL UPDATE AND INFORMED HER OF THE DISCHARGE ORDER FOR TODAY. FAXED PATIENT VISIT REPORT TO [facility] [phone] PATRICIA/WINNIE # [phone].
--- NOTE | 2017-11-05 16:00 | NUR ---
PT LEFT HOSPITAL WITH ALL HER BELONGINGS , INCLUDING MEDS KEPT WITH PHARMACY. TOOK HER PICC LINE OUT FROM MID FOREARM. GIVEN ALL DC INSTRUCTION TO PT. USED IT PROGRAMMER PHONE SERVICE FOR DISCHARGING PT. INTREPRETER ID # [id number], NAME - DOUG. PT VERBALIZED UNDERSTANDING OF ALL THE DC INSTRUCTION. PROVIDED WITH PRESCRIPTION WELL. WHEELED OUT PT UPTO HER CAR. PT IN STABLE CONDITION.
== END 2017-11-05 15:40 | disposition home or self-care (01) | DRG 280 ==
LOC: MED 06:15 → MTU 09:16
PROVIDERS: ADMIT General Practice; ATTEND General Practice
PROC: 02H633Z Insertion of Infusion Device into Right Atrium, Percutaneous Approach (ICD-10-PCS; principal; 2017-11-02)
PROC: B244ZZZ Ultrasonography of Right Heart (ICD-10-PCS; 2017-11-02)
PROC: 5A1D70Z Performance of Urinary Filtration, Intermittent, Less than 6 Hours Per Day (ICD-10-PCS; 2017-11-02)
PROC: 5A1D70Z Performance of Urinary Filtration, Intermittent, Less than 6 Hours Per Day (ICD-10-PCS; 2017-11-04)
DX: I21.4 Non-ST elevation (NSTEMI) myocardial infarction (principal); I50.43 Acute on chronic combined systolic (congestive) and diastolic (congestive) heart failure; N17.0 Acute kidney failure with tubular necrosis; N18.6 End stage renal disease; J96.01 Acute respiratory failure with hypoxia; D68.59 Other primary thrombophilia; I13.2 Hypertensive heart and chronic kidney disease with heart failure and with stage 5 chronic kidney disease, or end stage renal disease; E11.65 Type 2 diabetes mellitus with hyperglycemia; E87.5 Hyperkalemia; I44.7 Left bundle-branch block, unspecified; E11.51 Type 2 diabetes mellitus with diabetic peripheral angiopathy without gangrene; E11.22 Type 2 diabetes mellitus with diabetic chronic kidney disease; E83.39 Other disorders of phosphorus metabolism; E78.5 Hyperlipidemia, unspecified; I25.10 Atherosclerotic heart disease of native coronary artery without angina pectoris; D64.9 Anemia, unspecified; I35.0 Nonrheumatic aortic (valve) stenosis; E66.3 Overweight; Z99.2 Dependence on renal dialysis; Z88.8 Allergy status to other drugs, medicaments and biological substances; Z68.25 Body mass index [BMI] 25.0-25.9, adult; Z95.5 Presence of coronary angioplasty implant and graft; Z88.2 Allergy status to sulfonamides; Z83.3 Family history of diabetes mellitus; Z89.412 Acquired absence of left great toe; Z90.49 Acquired absence of other specified parts of digestive tract
CPT/HCPCS: 36415; 36600; 71045; 80048; 80053; 80305; 81001; 82150; 82803; 82948; 83036; 83605; 83690; 83735; 83880; 84100; 84436; 84439; 84443; 84484; 85025; 85610; 85730; 87040; 87081; 87086; 93005; 94640; 94660; 99291; G0482; J1644; J1650; J1815; J2405; J7030; J7620; Q0092; Q0162

== ENCOUNTER 2017-11-10 18:55 | Inpatient (IN) | payer OTHER ==
[~2017-11-10] VITALS: Ht 162.6 cm; Wt 68.9 kg
[~2017-11-10 18:55] MED LIST changes: -AMIO200T10 PO; -CLOP75TA26 PO; -HEPA-133 IV; -HEPA500056 IV; -Heparin Per Pharmacy MC; -INSU10SU8 SUBQ; +ISOS20TA13 PO; -ISOS30TE35 PO; -ISOS60TE3 PO; -LISI-424 PO; +LISI5TAB18 PO; +METO25TA PO; -METOPROLOL TARTRATE PO; +TICA90TA PO
[2017-11-10 18:58] VITALS: BP 111/52
[2017-11-10] MEDS ORDERED: KETOROLAC 30 MG/ML VIAL IVP ONE (19:45)
[2017-11-10] MEDS ORDERED: KETOROLAC 30 MG/ML VIAL IM ONE (20:35)
[2017-11-10 20:46] LABS: BASOPHILS # (AUTO) 0.1 K/uL (0.00-0.22); BASOPHILS % (AUTO) 1.1 % (0.0-2.0); EOSINOPHILS # (AUTO) 0.2 K/uL (0-0.4); EOSINOPHILS % (AUTO) 4.3 % (0.0-4.0); HEMATOCRIT 28.4 % (36-48); LYMPHOCYTES # (AUTO) 1.8 K/uL (2.5-16.5); LYMPHOCYTES % (AUTO) 30.9 % (20.5-51.1); MEAN CORPUSCULAR HEMOGLOBIN 28 pg (27-31); MEAN CORPUSCULAR HGB CONC 32 g/dL (33-37); MEAN CORPUSCULAR VOLUME 87.4 fL (80-94); MONOCYTES # (AUTO) 0.6 K/uL (0.8-1.0); MONOCYTES % (AUTO) 10.9 % (1.7-9.3); NEUTROPHILS % (AUTO) 52.8 % (42.2-75.2); PLATELET COUNT (AUTO) 274 K/uL (140-450); RED BLOOD CELL COUNT(AUTO) 3.25 MIL/uL (4.20-5.40); RED CELL DISTRIBUTION WIDTH 17.9 % (11.6-13.7); WHITE BLOOD COUNT (AUTO) 5.8 K/uL (4.8-10.8)
[2017-11-10 21:03] LABS: PROTHROMBIN TIME 10.1 secs (10.8-13.4)
[2017-11-10 21:07] LABS: ANION GAP 9.7 (8-16); CARBON DIOXIDE 31.1 mmol/L (21-32); POTASSIUM 3.8 mmol/L (3.5-5.1); TOTAL BILIRUBIN 0.2 mg/dL (0.0-1.0)
[2017-11-10 21:09] LABS: CREATININE 6.4 mg/dL (0.6-1.3)
[2017-11-10] MEDS ORDERED: ENOXAPARIN 80 MG/0.8 ML SYR SUBQ ONE (21:15)
[2017-11-10] MEDS ORDERED: ASPIRIN 81 MG TAB.CHEW PO ONE (21:15)
[2017-11-10] MEDS ORDERED: MORPHINE SULFATE 2 MG/ML SYR IVP PRN (22:20)
[2017-11-10] MEDS ORDERED: ACETAMINOPHEN 325 MG TAB PO PRN (22:20)
[2017-11-10] MEDS ORDERED: HYDROcodone/APAP 5/325 MG 1 TAB TAB PO PRN (22:20)
[2017-11-10] MEDS ORDERED: DEXTROSE 50% 50 ML SYR IVP PRN (22:20)
[2017-11-10] MEDS ORDERED: NITROGLYCERIN 0.4 MG TAB SL PRN (22:20)
[2017-11-10] MEDS ORDERED: DOCUSATE SODIUM 100 MG GELCAP PO PRN (22:20)
[2017-11-10 23:09] LABS: MAGNESIUM 2.8 mg/dL (1.8-2.4); PHOSPHORUS 4.6 mg/dL (2.5-4.9); THYROID STIMULATING HORMONE 1.46 uIU/mL (0.34-3.74)
[2017-11-10] MEDS: ONDANSETRON 4 MG/2 ML VIAL IM/IVP PRN (23:54)
[2017-11-10] MEDS: NACL 0.9% 1,000 ML IV SCH (23:54)
[2017-11-11] VITALS: BP 138/52
[2017-11-11] MEDS ORDERED: ZOLPIDEM 5 MG TAB PO PRN (03:30)
[2017-11-11 04:00] VITALS: BP 104/52
[2017-11-11] MEDS: PANTOPRAZOLE 40 MG TABEC PO SCH (06:26)
[2017-11-11] MEDS: BLOOD GLUCOSE MONITORING 1 DEV DEV FS SCH ×4 (06:58→21:11)
[2017-11-11] MEDS: INSULIN LISPRO SLIDING SCALE 100 UNITS/ML VIAL SUBQ PRN ×2 (07:04→21:18)
[2017-11-11 07:53] LABS: BASOPHILS % (AUTO) 0.9 % (0.0-2.0); EOSINOPHILS # (AUTO) 0.4 K/uL (0-0.4); EOSINOPHILS % (AUTO) 6.7 % (0.0-4.0); HEMATOCRIT 27.9 % (36-48); HEMOGLOBIN 8.9 g/dL (12.0-16.0); LYMPHOCYTES # (AUTO) 2.1 K/uL (2.5-16.5); LYMPHOCYTES % (AUTO) 39.9 % (20.5-51.1); MEAN CORPUSCULAR HEMOGLOBIN 28 pg (27-31); MEAN CORPUSCULAR HGB CONC 32 g/dL (33-37); MEAN CORPUSCULAR VOLUME 87.7 fL (80-94); MONOCYTES # (AUTO) 0.7 K/uL (0.8-1.0); MONOCYTES % (AUTO) 12.5 % (1.7-9.3); NEUTROPHILS # (AUTO) 2.1 K/uL (1.8-7.7); PLATELET COUNT (AUTO) 246 K/uL (140-450); RED BLOOD CELL COUNT(AUTO) 3.18 MIL/uL (4.20-5.40); RED CELL DISTRIBUTION WIDTH 17.7 % (11.6-13.7); WHITE BLOOD COUNT (AUTO) 5.3 K/uL (4.8-10.8)
[2017-11-11 07:58] LABS: ANION GAP 14.1 (8-16); CARBON DIOXIDE 25.7 mmol/L (21-32); POTASSIUM 3.8 mmol/L (3.5-5.1)
[2017-11-11 08:00] VITALS: BP 122/53
[2017-11-11 08:06] LABS: MAGNESIUM 2.8 mg/dL (1.8-2.4); PHOSPHORUS 4.6 mg/dL (2.5-4.9)
[2017-11-11] MEDS ORDERED: ENOXAPARIN 40 MG/0.4 ML SYR SUBQ SCH (09:00)
[2017-11-11] MEDS ORDERED: NON-FORMULARY ITEM (Ticagrelor (Brilinta) 90 MG) PO SCH (09:00)
[2017-11-11] MEDS ORDERED: INSULIN NPH HUM/REG INSULIN HM 100 UNIT/ML 10 ML VIAL SUBQ SCH ×2 (09:00→10:30)
[2017-11-11] MEDS: ASPIRIN 81 MG TAB.CHEW PO SCH (09:28)
[2017-11-11] MEDS: SERTRALINE 50 MG TAB PO SCH (09:28)
[2017-11-11] MEDS ORDERED: TICAGRELOR 90 MG TABLET PO SCH ×2 (11:00→21:00)
[2017-11-11 12:00] VITALS: BP 121/57
[2017-11-11 16:00] VITALS: BP 137/51
[2017-11-11 20:00] VITALS: BP 129/51
[2017-11-11] MEDS: ATORVASTATIN 20 MG TAB PO SCH (21:12)
[2017-11-11] MEDS: INSULIN NPH HUM/REG INSULIN HM 100 UNIT/ML 10 ML VIAL SUBQ SCH (21:17)
[2017-11-11] MEDS: NACL 0.9% 1,000 ML IV SCH (22:19)
[2017-11-12] VITALS: BP 139/54
[2017-11-12 04:00] VITALS: BP 133/56
[2017-11-12] MEDS: PANTOPRAZOLE 40 MG TABEC PO SCH (05:39)
[2017-11-12] MEDS: BLOOD GLUCOSE MONITORING 1 DEV DEV FS SCH ×4 (06:23→21:04)
[2017-11-12 07:39] LABS: BASOPHILS # (AUTO) 0.1 K/uL (0.00-0.22); BASOPHILS % (AUTO) 0.8 % (0.0-2.0); EOSINOPHILS # (AUTO) 0.4 K/uL (0-0.4); EOSINOPHILS % (AUTO) 5.7 % (0.0-4.0); HEMOGLOBIN 9.8 g/dL (12.0-16.0); LYMPHOCYTES # (AUTO) 2.2 K/uL (2.5-16.5); LYMPHOCYTES % (AUTO) 31.7 % (20.5-51.1); MEAN CORPUSCULAR HEMOGLOBIN 28 pg (27-31); MEAN CORPUSCULAR HGB CONC 32 g/dL (33-37); MEAN CORPUSCULAR VOLUME 87.5 fL (80-94); MONOCYTES # (AUTO) 0.7 K/uL (0.8-1.0); MONOCYTES % (AUTO) 9.8 % (1.7-9.3); NEUTROPHILS # (AUTO) 3.6 K/uL (1.8-7.7); PLATELET COUNT (AUTO) 300 K/uL (140-450); RED BLOOD CELL COUNT(AUTO) 3.55 MIL/uL (4.20-5.40); RED CELL DISTRIBUTION WIDTH 17.6 % (11.6-13.7)
[2017-11-12 07:58] LABS: ANION GAP 13.6 (8-16); CARBON DIOXIDE 28.6 mmol/L (21-32); POTASSIUM 4.2 mmol/L (3.5-5.1)
[2017-11-12 08:00] VITALS: BP 122/41
[2017-11-12 08:03] LABS: CREATININE 5.4 mg/dL (0.6-1.3)
[2017-11-12 08:09] LABS: MAGNESIUM 2.1 mg/dL (1.8-2.4); PHOSPHORUS 4.6 mg/dL (2.5-4.9)
[2017-11-12] MEDS: ASPIRIN 81 MG TAB.CHEW PO SCH (09:09)
[2017-11-12] MEDS: CLOPIDOGREL 75 MG TAB PO SCH (09:09)
[2017-11-12] MEDS: SERTRALINE 50 MG TAB PO SCH (09:10)
[2017-11-12] MEDS: INSULIN NPH HUM/REG INSULIN HM 100 UNIT/ML 10 ML VIAL SUBQ SCH ×2 (09:16→21:10)
[2017-11-12] MEDS ORDERED: RANOLAZINE 500 MG TER PO SCH (10:30)
[2017-11-12 12:00] VITALS: BP 151/60
[2017-11-12] MEDS: amLODIPine 5 MG TAB PO SCH (12:12)
[2017-11-12] MEDS: INSULIN LISPRO SLIDING SCALE 100 UNITS/ML VIAL SUBQ PRN ×2 (12:19→21:03)
[2017-11-12 16:00] VITALS: BP 135/56
[2017-11-12 20:00] VITALS: BP 143/62
[2017-11-12] MEDS: ATORVASTATIN 20 MG TAB PO SCH (20:59)
[2017-11-12] MEDS: RANOLAZINE 500 MG TER PO SCH (21:00)
[2017-11-12] MEDS: ONDANSETRON 4 MG/2 ML VIAL IM/IVP PRN (21:44)
[2017-11-12] MEDS: NACL 0.9% 1,000 ML IV SCH (22:19)
[2017-11-13] VITALS: BP 128/50
[2017-11-13 04:00] VITALS: BP 131/54
[2017-11-13] MEDS: PANTOPRAZOLE 40 MG TABEC PO SCH (05:45)
[2017-11-13] MEDS: BLOOD GLUCOSE MONITORING 1 DEV DEV FS SCH ×3 (05:50→16:14)
[2017-11-13 07:27] LABS: BASOPHILS # (AUTO) 0.1 K/uL (0.00-0.22); BASOPHILS % (AUTO) 0.6 % (0.0-2.0); EOSINOPHILS # (AUTO) 0.5 K/uL (0-0.4); EOSINOPHILS % (AUTO) 5.2 % (0.0-4.0); HEMATOCRIT 29.3 % (36-48); HEMOGLOBIN 9.4 g/dL (12.0-16.0); LYMPHOCYTES # (AUTO) 2.1 K/uL (2.5-16.5); LYMPHOCYTES % (AUTO) 22.1 % (20.5-51.1); MEAN CORPUSCULAR HEMOGLOBIN 28 pg (27-31); MEAN CORPUSCULAR HGB CONC 32 g/dL (33-37); MEAN CORPUSCULAR VOLUME 87.2 fL (80-94); MONOCYTES # (AUTO) 0.6 K/uL (0.8-1.0); MONOCYTES % (AUTO) 6.5 % (1.7-9.3); NEUTROPHILS # (AUTO) 6.2 K/uL (1.8-7.7); NEUTROPHILS % (AUTO) 65.6 % (42.2-75.2); PLATELET COUNT (AUTO) 326 K/uL (140-450); RED BLOOD CELL COUNT(AUTO) 3.36 MIL/uL (4.20-5.40); RED CELL DISTRIBUTION WIDTH 17.7 % (11.6-13.7); WHITE BLOOD COUNT (AUTO) 9.4 K/uL (4.8-10.8)
[2017-11-13 07:33] LABS: ANION GAP 15.2 (8-16); CARBON DIOXIDE 26.1 mmol/L (21-32); POTASSIUM 4.3 mmol/L (3.5-5.1)
[2017-11-13 07:36] LABS: CREATININE 7.2 mg/dL (0.6-1.3)
[2017-11-13 08:00] VITALS: BP 144/60
[2017-11-13] MEDS: CLOPIDOGREL 75 MG TAB PO SCH (09:16)
[2017-11-13] MEDS: SERTRALINE 50 MG TAB PO SCH (09:16)
[2017-11-13] MEDS: ASPIRIN 81 MG TAB.CHEW PO SCH (09:17)
[2017-11-13] MEDS: RANOLAZINE 500 MG TER PO SCH (09:18)
[2017-11-13] MEDS: INSULIN NPH HUM/REG INSULIN HM 100 UNIT/ML 10 ML VIAL SUBQ SCH (09:23)
[2017-11-13 12:00] VITALS: BP 144/66
[2017-11-13] MEDS: amLODIPine 5 MG TAB PO SCH (12:07)
[2017-11-13] MEDS ORDERED: AMLO5TAB4 PO (12:17)
[2017-11-13] MEDS ORDERED: RANEX500 PO (12:17)
[2017-11-13] MEDS ORDERED: CLOP75TA26 PO (12:17)
[2017-11-13] MEDS ORDERED: HUM7030 SUBQ (12:17)
[2017-11-13] MEDS ORDERED: NITR1PAT TD (12:26)
[2017-11-13] MEDS ORDERED: ALTEPLASE 2 MG VIAL MC SCH (13:25)
[2017-11-13 16:00] VITALS: BP 147/56
[2017-11-13 17:24] LABS: ANION GAP 8.8 (8-16); CARBON DIOXIDE 31.9 mmol/L (21-32); CREATININE 2.3 mg/dL (0.6-1.3); POTASSIUM 3.7 mmol/L (3.5-5.1)
== END 2017-11-13 17:25 | disposition home or self-care (01) | DRG 280 ==
LOC: MED 18:55 → MTU 22:31
PROVIDERS: ADMIT General Practice; ATTEND General Practice
PROC: 5A1D70Z Performance of Urinary Filtration, Intermittent, Less than 6 Hours Per Day (ICD-10-PCS; principal; 2017-11-11)
PROC: 5A1D70Z Performance of Urinary Filtration, Intermittent, Less than 6 Hours Per Day (ICD-10-PCS; 2017-11-13)
DX: I21.4 Non-ST elevation (NSTEMI) myocardial infarction (principal); N18.6 End stage renal disease; N17.0 Acute kidney failure with tubular necrosis; I50.41 Acute combined systolic (congestive) and diastolic (congestive) heart failure; E44.0 Moderate protein-calorie malnutrition; I13.2 Hypertensive heart and chronic kidney disease with heart failure and with stage 5 chronic kidney disease, or end stage renal disease; E87.1 Hypo-osmolality and hyponatremia; G90.9 Disorder of the autonomic nervous system, unspecified; D64.9 Anemia, unspecified; I25.10 Atherosclerotic heart disease of native coronary artery without angina pectoris; E66.9 Obesity, unspecified; F32.9 Major depressive disorder, single episode, unspecified; E11.22 Type 2 diabetes mellitus with diabetic chronic kidney disease; K21.9 Gastro-esophageal reflux disease without esophagitis; E11.65 Type 2 diabetes mellitus with hyperglycemia; I07.1 Rheumatic tricuspid insufficiency; I34.0 Nonrheumatic mitral (valve) insufficiency; I35.0 Nonrheumatic aortic (valve) stenosis; E78.5 Hyperlipidemia, unspecified; E83.39 Other disorders of phosphorus metabolism; Z86.73 Personal history of transient ischemic attack (TIA), and cerebral infarction without residual deficits; Z99.2 Dependence on renal dialysis; Z88.8 Allergy status to other drugs, medicaments and biological substances; Z79.82 Long term (current) use of aspirin; Z79.4 Long term (current) use of insulin; Z79.899 Other long term (current) drug therapy; Z95.5 Presence of coronary angioplasty implant and graft; Z90.49 Acquired absence of other specified parts of digestive tract; Z83.3 Family history of diabetes mellitus; Z91.14 Patient's other noncompliance with medication regimen; Z68.26 Body mass index [BMI] 26.0-26.9, adult
CPT/HCPCS: 36415; 71045; 80048; 80053; 82150; 82948; 83036; 83690; 83735; 83880; 84100; 84134; 84443; 84484; 85025; 85610; 85730; 87081; 93005; 93880; 93970; 96372; 99285; J1644; J1650; J1815; J1885; J2405; J2997; J7030; Q0092

== ENCOUNTER 2017-11-14 04:51 | Emergency (ER) | payer OTHER ==
[~2017-11-14] VITALS: Ht 167.6 cm; Wt 68.0 kg
[2017-11-14 04:51] VITALS: BP 148/73
[~2017-11-14 04:51] MED LIST changes: -ACET-1182 PO; +AMLO5TAB4 PO; -ASPI81CT95 PO; +CLOP75TA26 PO; -D50SYR IVP; -ISOS20TA13 PO; -LISI5TAB18 PO; -METO25TA PO; -NITR0.4T1 SL; +NITR1PAT TD; +RANEX500 PO; -TICA90TA PO; -ZOLP5TAB1 PO
--- NOTE | 2017-11-14 04:59 | NUR ---
Patient ambulated to bed 3 with family. RN evaluating patient at bedside.
[2017-11-14] MEDS ORDERED: NITROGLYCERIN 0.4 MG TAB SL ONE (05:05)
[2017-11-14] MEDS ORDERED: ASPIRIN 81 MG TAB.CHEW PO ONE (05:05)
--- NOTE | 2017-11-14 05:10 | NUR ---
PATIENT IS A 62 Y/O FEMALE WHO PRESENTS TO THE ED C/O CHEST PAIN. PT STATES THAT SHE WAS DISCHARGED RECENTLY AND IS NOW EXPERIENCING CHEST PAIN. PT REPORTS 10/10 ACHING CHEST PAIN THAT DOES NOT RADIATE. PT DENIES CP, REPORTS DIFFICULTY BREATHING, DENIES N/V/D. PT AWAKE AND ALERT, RR EVEN. PT REPOSITIONED FOR COMFORT, BED IN LOWEST POSITION. ZORAN MOLINA NOTIFIED. WILL CONTINUE TO MONITOR. Addendum: 11/14/17 at 0550 by MEDDCV PATIENT IS A 62 Y/O FEMALE WHO PRESENTS TO THE ED C/O CHEST PAIN. PT STATES THAT SHE WAS DISCHARGED RECENTLY AND IS NOW EXPERIENCING CHEST PAIN. PT REPORTS 10/10 ACHING CHEST PAIN THAT DOES NOT RADIATE. NOTED OLD R UPPER CHEST SHUNT. PT RECEIVES DIALYSIS M/W/FR. PT DENIES CP, REPORTS DIFFICULTY BREATHING, DENIES N/V/D. PT AWAKE AND ALERT, RR EVEN. PT REPOSITIONED FOR COMFORT, BED IN LOWEST POSITION. ZORAN MOLINA NOTIFIED. WILL CONTINUE TO MONITOR. Addendum: 11/14/17 at 0552 by MEDDCV PATIENT IS A 62 Y/O FEMALE WHO PRESENTS TO THE ED C/O CHEST PAIN. PT STATES THAT SHE WAS DISCHARGED RECENTLY AND IS NOW EXPERIENCING CHEST PAIN. PT REPORTS 10/10 ACHING CHEST PAIN THAT DOES NOT RADIATE. NOTED OLD SHUNT ON R ARM, NOTED DIALYSIS SHUNT ON R UPPER CHEST. PT RECEIVES DIALYSIS M/W/FR. PT DENIES CP, REPORTS DIFFICULTY BREATHING, DENIES N/V/D. PT AWAKE AND ALERT, RR EVEN. PT REPOSITIONED FOR COMFORT, BED IN LOWEST POSITION. ER MD DR. MOLINA NOTIFIED. WILL CONTINUE TO MONITOR.
[2017-11-14] MEDS ORDERED: ASPIRIN 81 MG TAB.CHEW ONE (05:13)
--- NOTE | 2017-11-14 05:20 | NUR ---
XRAY AT BEDSIDE FOR INTERVENTION.
--- NOTE | 2017-11-14 05:56 | NUR ---
CALLED LAB FOR BLOOD DRAW
[2017-11-14] MEDS ORDERED: ONDANSETRON 4 MG ODT PO ONE (06:25)
[2017-11-14 06:32] LABS: BASOPHILS % (AUTO) 0.6 % (0.0-2.0); EOSINOPHILS # (AUTO) 0.2 K/uL (0-0.4); EOSINOPHILS % (AUTO) 2.6 % (0.0-4.0); HEMATOCRIT 30.8 % (36-48); HEMOGLOBIN 9.9 g/dL (12.0-16.0); LYMPHOCYTES # (AUTO) 1.2 K/uL (2.5-16.5); LYMPHOCYTES % (AUTO) 15.2 % (20.5-51.1); MEAN CORPUSCULAR HEMOGLOBIN 28 pg (27-31); MEAN CORPUSCULAR HGB CONC 32 g/dL (33-37); MEAN CORPUSCULAR VOLUME 86.9 fL (80-94); MONOCYTES # (AUTO) 0.5 K/uL (0.8-1.0); MONOCYTES % (AUTO) 5.7 % (1.7-9.3); NEUTROPHILS # (AUTO) 6.2 K/uL (1.8-7.7); NEUTROPHILS % (AUTO) 75.9 % (42.2-75.2); PLATELET COUNT (AUTO) 311 K/uL (140-450); RED BLOOD CELL COUNT(AUTO) 3.54 MIL/uL (4.20-5.40); RED CELL DISTRIBUTION WIDTH 17.5 % (11.6-13.7); WHITE BLOOD COUNT (AUTO) 8.2 K/uL (4.8-10.8)
[2017-11-14 06:39] LABS: PROTHROMBIN TIME 10.4 secs (10.8-13.4)
[2017-11-14 06:44] LABS: ANION GAP 12.2 (8-16); CARBON DIOXIDE 28.2 mmol/L (21-32); POTASSIUM 4.4 mmol/L (3.5-5.1); TOTAL BILIRUBIN 0.3 mg/dL (0.0-1.0)
[2017-11-14 06:52] VITALS: BP 130/70
--- NOTE | 2017-11-14 06:52 | NUR ---
Patient discharged with v/s stable. Written and verbal after care instructions given and explained. Patient alert, oriented and verbalized understanding of instructions. Ambulatory with steady gait. All questions addressed prior to discharge. ID band removed. Patient advised to follow up with PMD. Rx of ZOFRAN 4MG ODT given. Patient educated on indication of medication including possible reaction and side effects. Opportunity to ask questions provided and answered.
--- NOTE | 2017-11-14 07:25 | NUR ---
ADDENDUM:TROPONIN 3.008 DR. MAYS MADE AWARE.CALLED PATIENT TO RETURN TO ER RIGHT AWAY FOR ABNORMAL LABS. AND RONAN ESTEVEZ SPOKE TO PATIENT IN [place] LANGUAGE.PATIENT AGREED TO COME IN
== END 2017-11-14 06:52 | disposition home or self-care (01) ==
LOC: MED 04:51
DX: I13.2 Hypertensive heart and chronic kidney disease with heart failure and with stage 5 chronic kidney disease, or end stage renal disease (principal); E11.22 Type 2 diabetes mellitus with diabetic chronic kidney disease; N18.6 End stage renal disease; I50.9 Heart failure, unspecified; Z79.84 Long term (current) use of oral hypoglycemic drugs; K21.9 Gastro-esophageal reflux disease without esophagitis; Z88.8 Allergy status to other drugs, medicaments and biological substances; Z79.899 Other long term (current) drug therapy
CPT/HCPCS: 36415; 71045; 80053; 83880; 84484; 85025; 85610; 85730; 93005; 99285; S0119

== ENCOUNTER 2017-11-14 07:42 | Inpatient (IN) | payer OTHER ==
[~2017-11-14] VITALS: Ht 152.4 cm; Wt 72.6 kg
--- NOTE | 2017-11-14 07:43 | NUR ---
PT AMBULATES TO BED 7
--- NOTE | 2017-11-14 07:45 | NUR ---
DR MAYS EVALUATING AT BEDSIDE
[2017-11-14 07:46] VITALS: BP 136/53
[2017-11-14] MEDS ORDERED: NITROGLYCERIN 2% 1 GM PKT TP ONE (07:50)
[2017-11-14] MEDS ORDERED: ASPIRIN 325 MG TAB PO ONE (07:50)
[2017-11-14] MEDS ORDERED: MORPHINE SULFATE 2 MG/ML SYR IVP ONE (07:50)
--- NOTE | 2017-11-14 07:50 | NUR ---
ACCOMPANIED BY CALLED BACK FOR ABNORMAL LAB VALUE---+TROPONIN LEVEL SEEN IN OUR ER LAST NIGHT C/O NAUSEA AND HOT FLASHES ALSO BACK PAIN HX---ESRD (FLAVIA R CHEST), CAD, DM, HTN
--- NOTE | 2017-11-14 08:21 | NUR ---
PT REFUSED MORPHINE, DR MALONE NOTIFIED
[2017-11-14] MEDS ORDERED: ONDANSETRON 4 MG/2 ML VIAL ONE (09:02)
[2017-11-14] MEDS ORDERED: ONDANSETRON 4 MG/2 ML VIAL IVP ONE (09:15)
[2017-11-14] MEDS ORDERED: NACL 0.9% 1,000 ML IV SCH (09:46)
[2017-11-14] MEDS ORDERED: ZOLPIDEM 5 MG TAB PO PRN (09:50)
[2017-11-14] MEDS ORDERED: DOCUSATE SODIUM 100 MG GELCAP PO PRN (09:50)
[2017-11-14] MEDS ORDERED: LORazepam 2 MG/ML VIAL IM/IVP PRN (09:50)
[2017-11-14] MEDS ORDERED: ACETAMINOPHEN 325 MG TAB PO PRN (09:50)
[2017-11-14] MEDS ORDERED: ONDANSETRON 4 MG/2 ML VIAL IM/IVP PRN (09:50)
--- NOTE | 2017-11-14 10:33 | NUR ---
PT TAKEN TO FLOOR BY RONAN MATHEWS AND RN SHANTANU
--- NOTE | 2017-11-14 10:40 | NUR ---
[place] RECEIVED FROM ER. PT IS AMBULATING, ALERT AND ORIENTED. PATIENT IS STATELESS SPEAKING ONLY. SHE IS ON ROOM AIR. PT HAS A 24 GAUGE IV IN HER RIGHT AC. HD CATHETER NOTED ON RIGHT SIDE CHEST. OLD HD SHUNT NOTED IN LEFT UPPER ARM. PT NOT C/O ANY PAIN AT THIS TIME, NO S/S OF DISTRESS NOTED. WILL CONTINUE TO MONITOR.
--- NOTE | 2017-11-14 10:47 | NUR ---
Patient will be admitted to care of Dr Heaton. Admited to tele. Will go to room 118. Belongings list completed. Report to RONAN sEposito
[2017-11-14 11:00] LABS: MAGNESIUM 2.1 mg/dL (1.8-2.4); PHOSPHORUS 4.1 mg/dL (2.5-4.9)
[2017-11-14] MEDS ORDERED: LOVENOX 1MG/KG Q12H SUBQ SCH ×2 (12:25→15:10)
[2017-11-14] MEDS ORDERED: NITROGLYCERIN 0.4 MG TAB SL PRN (12:25)
[2017-11-14] MEDS ORDERED: DEXTROSE 50% 50 ML SYR IVP PRN (12:45)
[2017-11-14] MEDS ORDERED: amLODIPine 5 MG TAB PO SCH (13:00)
[2017-11-14 13:05] LABS: ANION GAP 11.5 (8-16); CARBON DIOXIDE 29.3 mmol/L (21-32); POTASSIUM 4.8 mmol/L (3.5-5.1)
[2017-11-14] MEDS ORDERED: ATORVASTATIN 20 MG TAB PO SCH (13:10)
[2017-11-14] MEDS ORDERED: CLOPIDOGREL 75 MG TAB PO SCH (13:13)
[2017-11-14] MEDS ORDERED: PANTOPRAZOLE 40 MG TABEC PO SCH (13:16)
[2017-11-14] MEDS ORDERED: LISINOPRIL 5 MG TAB PO SCH (13:18)
[2017-11-14] MEDS ORDERED: SERTRALINE 50 MG TAB PO SCH (13:19)
[2017-11-14 13:21] LABS: CREATININE 5.2 mg/dL (0.6-1.3)
[2017-11-14 15:15] VITALS: BP 145/61
[2017-11-14] MEDS ORDERED: ENOXAPARIN 80 MG/0.8 ML SYR SUBQ SCH (16:05)
[2017-11-14] MEDS ORDERED: HEPARIN PER PHARMACY MC PRN (16:15)
[2017-11-14] MEDS ORDERED: hePARIN / DEXT 5% PREMIX 250 ML IV SCH (16:25)
--- NOTE | 2017-11-14 17:00 | NUR ---
DR MOSS IN THE UNIT ,VISITING PT NEW ORDER TO TRANSFER PT TO HIGHER LEVEL OF CARE FOR POSSIBLE CARDIAC CATH . DR MOSS WANTED PATIENT TO [place] BECAUSE OF ALL HER MEDICAL RECORD AND HOTEL MANAGER ARE IN [place]. PER DR MOSS ACCEPTING DR WILL BE DR PETAR KRAUSE . CALLED [place] AND SPOKE WITH JACEY FROM ADMITTING AND FAXED H&P AND FACE SHEET AND WAITING FOR ACCEPTANCE AND BE AVAILABILITY.
--- NOTE | 2017-11-14 17:00 | NUR ---
PT SEEN BY DR MOSS REGARDING HER ELEVATED TROPONIN. DR MOSS RECOMMENDS TRANSFERRING PT TO [facility] FOR HIGHER LEVEL OF CARE. PT VERBALIZED UNDERSTANDING AND AGREED. DR MOSS CONTACTED PT'S RELATIVES AND NOTIFIED THEM OF THE TRANSFER.
--- NOTE | 2017-11-14 17:15 | NUR ---
HEPARIN DRIP STARTED PER DR'S ORDER, INFUSING PER PHARMACY'S PROTOCOL.
[2017-11-14] MEDS: BLOOD GLUCOSE MONITORING 1 DEV DEV FS SCH ×2 (17:25→20:52)
[2017-11-14] MEDS ORDERED: NITROGLYCERIN 2% 1 GM PKT TP SCH (18:00)
--- NOTE | 2017-11-14 18:00 | NUR ---
1 INCH NITRO PASTE ADMINISTERED TO THE PATIENT PER DR MOSS'S ORDER
[2017-11-14] MEDS: INSULIN LISPRO SLIDING SCALE 100 UNITS/ML VIAL SUBQ PRN ×2 (18:22→20:53)
--- NOTE | 2017-11-14 18:23 | NUR ---
CALLED [facility] AND SPOKE WITH JUSTINA PALMAADVERTISING DISPLAY ROTATOR SHE WILL TALK TO ADMITTING AND WILL CALL BACK TO THE UNIT FOR UPDATE
--- NOTE | 2017-11-14 19:10 | NUR ---
PT REPORT GIVEN AT BEDSIDE TO PERSONAL CAREGIVER NURSE. PT ENDORSED IN STABLE CONDITION.
--- NOTE | 2017-11-14 19:25 | NUR ---
RECEIVED PT IN STABLE CONDITION FROM AM NURSE. PT ON TELE MONITOR. AWAKE,ALERT AND ORIENTED X4. NO C/O ANY DISCOMFORT NOR PAIN NOTED. HAS HEPARIN DRIP INFUSING WELL ON THE RT AC#24. HAS HD ACCESS ON THE RT CHEST WITH DRESSING CLEAN AND DRY. STILL WITH OLD AV SHUNT ON LT ARM, NOT USING FOR HD . PLAN OF CARE DISCUSSED AND VERBALIZED UNDERSTANDING. BED ON LOW POSITION. CALL LIGHT PLACED WITHIN EASY REACH. INSTRUCTED TO CALL IF NEED ASSISTANCE.
[2017-11-14 20:00] VITALS: BP 138/67
--- NOTE | 2017-11-14 20:36 | NUR ---
CALLED [facility] AND TRIED TO TALK ECLECTIC DOCTOR FOR AVAILABLE BED.SHE DIDN'T ANSWER LEFT MESSAGE.
[2017-11-14] MEDS ORDERED: CALCIUM CARBONATE 500 MG TAB.CHEW PO SCH (21:00)
[2017-11-14] MEDS ORDERED: RANOLAZINE 500 MG TER PO SCH (21:00)
[2017-11-14] MEDS ORDERED: METOPROLOL 25 MG TAB PO SCH (21:00)
--- NOTE | 2017-11-14 22:12 | NUR ---
ABLE TO TALKED TO DENY,NURSE PRESSURISED CONTAINER FILLER OF [facility]. SHE SAID ADMITTING TO CALL FOR ROOM NUMBER. ANANTH ,ACQUISITIONS EDITOR MADE AWARE.
[2017-11-14 22:34] VITALS: BP 138/67
--- NOTE | 2017-11-14 22:50 | NUR ---
ABLE TO CONTACT TO , AND MADE AWARE ABOUT THE TRANSFER OF PT TO [facility].
--- NOTE | 2017-11-14 23:00 | NUR ---
REPORT GIVEN TO RONAN ZAVALA AT [facility].
[2017-11-15] MEDS ORDERED: NITROGLYCERIN 2% 1 GM PKT TP SCH
--- NOTE | 2017-11-15 | NUR ---
HEPARIN DRIP DISCONTINUED. TROPONIN AND APTT STILL PENDING. RT AC #24 IV ACCESS WITH PT UPON DISCHARGE. REPORT GIVEN TO [facility]TER[facility]. ALL DISCHARGE PAPERS WITH PT/TRANSPORTER. PT DISCHARGED IN STABLE CONDITION . ABLE TO TRANSFER BY SELF FROM BED TO [facility] WITH HER BELONGINGS EYEGLASSES ,CELL PHONE,BANJO REPAIR PERSON, CLOTHES, AND OTHER PERSONAL BELONGINGS IN BLACK BAG.
--- NOTE | 2017-11-15 00:30 | NUR ---
RESULT OF LATEST TROPONIN 10.818 AND APTT 43.4 THAT WAS CALLED BY LAB 0019 ,FAXED TO [facility] FAX# .
[2017-11-15] MEDS ORDERED: ASPIRIN 81 MG TAB.CHEW PO SCH (09:00)
[2017-11-15] MEDS ORDERED: PANTOPRAZOLE 40 MG TABEC PO SCH (09:00)
[2017-11-15] MEDS ORDERED: SERTRALINE 50 MG TAB PO SCH (09:00)
[2017-11-15] MEDS ORDERED: LISINOPRIL 5 MG TAB PO SCH (09:00)
[2017-11-15] MEDS ORDERED: CLOPIDOGREL 75 MG TAB PO SCH (09:00)
[2017-11-15] MEDS ORDERED: ATORVASTATIN 20 MG TAB PO SCH (09:00)
--- NOTE | 2017-11-16 15:20 | NUR ---
RETRO H&P, CONSULTATION REPORT, DC SUMMARY, PATIENT VISIT REPORT FAXED TO [facility] [phone] # [phone]
== END 2017-11-15 00:05 | disposition short-term general hospital (02) | DRG 280 ==
LOC: MED 07:42 → MTU 09:46
PROVIDERS: ADMIT Family Medicine; ATTEND Family Medicine
DX: I21.4 Non-ST elevation (NSTEMI) myocardial infarction (principal); N18.6 End stage renal disease; I50.43 Acute on chronic combined systolic (congestive) and diastolic (congestive) heart failure; N17.0 Acute kidney failure with tubular necrosis; I13.2 Hypertensive heart and chronic kidney disease with heart failure and with stage 5 chronic kidney disease, or end stage renal disease; E87.1 Hypo-osmolality and hyponatremia; E44.0 Moderate protein-calorie malnutrition; D68.59 Other primary thrombophilia; K21.9 Gastro-esophageal reflux disease without esophagitis; F41.9 Anxiety disorder, unspecified; E11.22 Type 2 diabetes mellitus with diabetic chronic kidney disease; E11.51 Type 2 diabetes mellitus with diabetic peripheral angiopathy without gangrene; F32.9 Major depressive disorder, single episode, unspecified; E11.65 Type 2 diabetes mellitus with hyperglycemia; E66.9 Obesity, unspecified; I08.3 Combined rheumatic disorders of mitral, aortic and tricuspid valves; Z66 Do not resuscitate; I44.7 Left bundle-branch block, unspecified; D63.8 Anemia in other chronic diseases classified elsewhere; E78.5 Hyperlipidemia, unspecified; Z95.1 Presence of aortocoronary bypass graft; Z90.49 Acquired absence of other specified parts of digestive tract; Z90.89 Acquired absence of other organs; Z88.8 Allergy status to other drugs, medicaments and biological substances; Z79.899 Other long term (current) drug therapy; Z79.4 Long term (current) use of insulin; Z86.73 Personal history of transient ischemic attack (TIA), and cerebral infarction without residual deficits; Z99.2 Dependence on renal dialysis; Z91.14 Patient's other noncompliance with medication regimen; Z82.49 Family history of ischemic heart disease and other diseases of the circulatory system; Z68.31 Body mass index [BMI] 31.0-31.9, adult; Z90.710 Acquired absence of both cervix and uterus; Z98.42 Cataract extraction status, left eye; Z98.41 Cataract extraction status, right eye; Z83.3 Family history of diabetes mellitus
CPT/HCPCS: 36415; 80048; 82948; 83036; 83735; 84100; 84484; 85730; 87081; 93005; 99285; J1644; J1815; J2270; J2405; J7030

== ENCOUNTER 2017-12-18 21:55 | Inpatient (IN) | payer OTHER ==
[~2017-12-18] VITALS: Ht 154.9 cm; Wt 72.6 kg
[2017-12-18 22:00] VITALS: BP 133/69
--- NOTE | 2017-12-18 22:03 | NUR ---
TO BED # 8 AMBULATORY, REPORT GIVEN TO ELA FERRARO
--- NOTE | 2017-12-18 22:05 | NUR ---
62/F BIB FAMILY W C/O SOB AND LEFT SIDE CP RADIATING TO BACK X 1 WEEK. LUNG SOUNDS DIMINISHED ON LEFT LOBES, CLEAR ON ALL RT LOBES. PT WITH MILD ACCESSORY MUSCLE USE, 22RR EVEN AND SLIGHTLY LABORED, SATS 93 ON RA. PT PLACED ON 2LPM NC. SURGICAL SCAR NOTED TO MEDIASTINUM. DIALYSIS SHUNT TO RT CHEST AND FISTULA TO LT UPPER ARM PMH: HTN, DM, ESRD DIALYSIS (M/W/F), CABG X1 MONTH, OXYGEN USE AT HOME
--- NOTE | 2017-12-18 22:24 | NUR ---
Dr. Finley evaluating patient at bedside.
--- NOTE | 2017-12-18 22:35 | NUR ---
oracle technical architect at bedside.
--- NOTE | 2017-12-18 23:00 | NUR ---
PT REPORTS SHE PRODUCE SMALL AMOUNT OF URINE. UNABLE TO PROVIDE SAMPLE AT THIS TIME.ER AWARE
[2017-12-18 23:44] LABS: BASOPHILS # (AUTO) 0.1 K/uL (0.00-0.22); BASOPHILS % (AUTO) 1.5 % (0.0-2.0); EOSINOPHILS # (AUTO) 0.4 K/uL (0-0.4); EOSINOPHILS % (AUTO) 5.2 % (0.0-4.0); HEMATOCRIT 31.1 % (36-48); HEMOGLOBIN 9.8 g/dL (12.0-16.0); LYMPHOCYTES # (AUTO) 1.1 K/uL (2.5-16.5); LYMPHOCYTES % (AUTO) 15.3 % (20.5-51.1); MEAN CORPUSCULAR HEMOGLOBIN 27 pg (27-31); MEAN CORPUSCULAR HGB CONC 32 g/dL (33-37); MEAN CORPUSCULAR VOLUME 86.8 fL (80-94); MONOCYTES # (AUTO) 0.7 K/uL (0.8-1.0); MONOCYTES % (AUTO) 9.3 % (1.7-9.3); NEUTROPHILS % (AUTO) 68.7 % (42.2-75.2); PLATELET COUNT (AUTO) 316 K/uL (140-450); RED BLOOD CELL COUNT(AUTO) 3.59 MIL/uL (4.20-5.40); RED CELL DISTRIBUTION WIDTH 16.5 % (11.6-13.7)
[2017-12-18 23:52] LABS: WHITE BLOOD COUNT (AUTO) 7.3 K/uL (4.8-10.8)
[2017-12-19 00:11] LABS: PROTHROMBIN TIME 11.5 secs (10.8-13.4)
[2017-12-19 00:13] LABS: ALBUMIN 2.9 g/dL (3.4-5.0); ANION GAP 10.8 (8-16); TOTAL BILIRUBIN 0.2 mg/dL (0.0-1.0)
[2017-12-19 00:17] LABS: POTASSIUM 2.8 mmol/L (3.5-5.1)
--- NOTE | 2017-12-19 00:30 | NUR ---
Patient appears to be resting comfortably in bed. Vital Signs within normal limits. Respirations even and unlabored.
[2017-12-19] MEDS ORDERED: ASPIRIN 81 MG TAB.CHEW PO ONE (00:45)
[2017-12-19] MEDS ORDERED: NACL 0.9% 1,000 ML IV SCH (00:49)
[2017-12-19] MEDS ORDERED: ACETAMINOPHEN 325 MG TAB PO PRN (00:50)
[2017-12-19] MEDS ORDERED: LORazepam 2 MG/ML VIAL IM/IVP PRN (00:50)
[2017-12-19] MEDS ORDERED: MORPHINE SULFATE 4 MG/ML SYR IVP PRN (00:50)
[2017-12-19] MEDS ORDERED: DOCUSATE SODIUM 100 MG GELCAP PO PRN (00:50)
[2017-12-19] MEDS ORDERED: ZOLPIDEM 5 MG TAB PO PRN (00:50)
[2017-12-19] MEDS ORDERED: ALBUTEROL SULFATE/IPRATROPIU 3 ML SOL IH PRN ×2 (00:55→01:00)
[2017-12-19] MEDS ORDERED: NITROGLYCERIN 0.4 MG TAB SL PRN (00:55)
[2017-12-19] MEDS ORDERED: NITROGLYCERIN 0.2 MG/HR PATCH TD PRN (01:00)
[2017-12-19] MEDS ORDERED: INSULIN LISPRO SLIDING SCALE 100 UNITS/ML VIAL SUBQ PRN (01:00)
[2017-12-19] MEDS ORDERED: POTASSIUM CHLORIDE 10 MEQ TABER PO ONE (01:10)
[2017-12-19] MEDS ORDERED: DEXTROSE 50% 50 ML SYR IVP PRN (01:15)
--- NOTE | 2017-12-19 01:23 | NUR ---
Patient will be admitted to care of [facility]. Admited to TELE. Will go to room 114. Belongings list completed. Report to ALEXA FERRARO.
--- NOTE | 2017-12-19 01:30 | NUR ---
PT ARRIVED ON UNIT VIA [facility] WITH ER NURSE. PT WAS ABLE TO AMBULATE FROM [facility] TO BED. PT IS IN STABLE CONDITION. PT IS AAOX4. PT IS ON NC 2L. RESPIRATIONS ARE EVEN AND UNLABORED. IV ACCESS IN R HAND 20G. IV IS PATENT AND INTACT. HD PORT ON R UPPER CHEST. PT HAD CABG 3WKS AGO AND SCAR DOWN MIDDLE OF CHEST STILL HEALING. PT HAS SCABS TO BILATERAL LOWER EXTREMITIES, NEAR THE KNEE, FROM CABG SURGERY. PT HAS BRUISING R CALF. PT HAS DRESSINGS ON L UPPER EXTREMITY. PT SAYS SHE WAS AT [place] YESTERDAY, 12/18/17 AND "THEY WERE DIGGING AROUND WITH NEEDLE" PT UNABLE TO EXPLAIN FURTHER. WILL NOTIFIED MRSA SWAB COLLECTED. FALL RISK PROTOCOL INITIATED. ALLERGY WRISTBAND APPLIED. BED IS LOCKED, LOW POSITION WITH SIDE RAILS UP X2. BOARD UPDATED. CALL LIGHT IS WITHIN REACH. WILL CONTINUE TO MONITOR PT.
[2017-12-19 01:45] VITALS: BP 139/61
[2017-12-19 01:52] LABS: CHOL/HDL RATIO 2.5 (1-4.5); THYROID STIMULATING HORMONE 2.9 uIU/mL (0.34-3.74)
[2017-12-19] MEDS ORDERED: KCL 20 MEQ/WATER INJ PREMIX 200 ML IV SCH (02:00)
--- NOTE | 2017-12-19 02:00 | NUR ---
RECEIVED A CALL FROM DR. MK HANLEY, PER MD NEED TO TRANSFER PT TO CONTRACTED FACILITY, HE SAID VIDEO RENTAL CLERK FROM [facility] WILL CALL US, I TALKED TO DR. BRITO, PER PT IS NOT STABLE TO TRANSFER AND NEED TO TALK TO RESIDENT DOCTOR -DR. HUNTER, I TALKED TO DR. HUNTER AND I REQUEST HER TO TALK TO DR. HANLEY [phone], DR. HANLEY DID NOT ANSWER THE PHONE BUT I LEAVE MESSAGE TO CALL US BACK, PER DR. HUNTER SHE WILL FOLLOW UP AND TALK TO DR. HANLEY AND EXPLAIN PT CONDITION AND WILL LET ME KNOW, I TALK TO CHARGE NURSE AND NURSE ALEXA THE SITUATION AND WILL WAIT FOR DR. HUNTER ORDER, INSTRUCTED CHARGE NURSE TO TALK TO PT AND EXPLAIN SITUATION
[2017-12-19] MEDS: HYDROcodone/APAP 5/325 MG 1 TAB TAB PO PRN ×4 (02:11→20:42)
--- NOTE | 2017-12-19 02:11 | NUR ---
PT C/O PAIN R UPPER BACK. NORCO GIVEN. WILL CONTINUE TO MONITOR PT.
--- NOTE | 2017-12-19 02:19 | NUR ---
NURSES SPOKE TO PT AND EXPLAIN SITUATION AND PT IS OK TO TRANSFER IF NEEDED
[2017-12-19] MEDS ORDERED: POTASSIUM CHLORIDE 10 MEQ TABER PO SCH (02:30)
--- NOTE | 2017-12-19 02:37 | NUR ---
SPOKE WITH DR. GRULLON. PER HER REQUEST WILL ONLY GIVE KDUR AT THIS. IS WAITING FOR CALL BACK FROM REGARDING POSSIBLE PT TRANSFER. DR. GRULLON WILL INFORM ME IF SHE WANTS TO GIVE KCL IV AT LATER TIME. WILL CONTINUE TO MONITOR PT.
[2017-12-19 04:00] VITALS: BP 142/66
--- NOTE | 2017-12-19 04:12 | NUR ---
PER DR GRULLON REQUEST KCL IV STARTED. PT TOLERATING WELL. WILL CONTINUE TO MONITOR.
[2017-12-19] MEDS: BLOOD GLUCOSE MONITORING 1 DEV DEV FS SCH ×4 (05:37→20:41)
[2017-12-19] MEDS: ONDANSETRON 4 MG/2 ML VIAL IM/IVP PRN (05:38)
[2017-12-19] MEDS: PANTOPRAZOLE 40 MG TABEC PO SCH (05:38)
[2017-12-19] MEDS: INSULIN LISPRO SLIDING SCALE 100 UNITS/ML VIAL SUBQ PRN (05:45)
--- NOTE | 2017-12-19 05:45 | NUR ---
SCHEDULED MEDICATION ADMINISTERED. INSULIN COVERAGE GIVEN FOR BS, 184. PT C/O NAUSEA. ZOFRAN GIVEN PT TOLERATED WELL. WILL CONTINUE TO MONITOR.
[2017-12-19 07:15] LABS: BASOPHILS # (AUTO) 0.1 K/uL (0.00-0.22); EOSINOPHILS # (AUTO) 0.5 K/uL (0-0.4); EOSINOPHILS % (AUTO) 6.1 % (0.0-4.0); HEMATOCRIT 31.3 % (36-48); HEMOGLOBIN 9.8 g/dL (12.0-16.0); LYMPHOCYTES # (AUTO) 1.3 K/uL (2.5-16.5); LYMPHOCYTES % (AUTO) 17.7 % (20.5-51.1); MEAN CORPUSCULAR HEMOGLOBIN 27 pg (27-31); MEAN CORPUSCULAR HGB CONC 31 g/dL (33-37); MEAN CORPUSCULAR VOLUME 86.8 fL (80-94); MONOCYTES # (AUTO) 0.7 K/uL (0.8-1.0); MONOCYTES % (AUTO) 9.2 % (1.7-9.3); NEUTROPHILS # (AUTO) 4.9 K/uL (1.8-7.7); PLATELET COUNT (AUTO) 320 K/uL (140-450); RED CELL DISTRIBUTION WIDTH 16.9 % (11.6-13.7); WHITE BLOOD COUNT (AUTO) 7.5 K/uL (4.8-10.8)
[2017-12-19 07:29] LABS: PHOSPHORUS 2.4 mg/dL (2.5-4.9)
[2017-12-19] MEDS ORDERED: BLOOD GLUCOSE MONITORING 1 DEV DEV FS SCH (07:30)
--- NOTE | 2017-12-19 07:31 | NUR ---
ENDORSED PT TO DAY SHIFT NURSE FOR CONTINUITY OF CARE. PT IN STABLE CONDITION.
[2017-12-19 07:44] LABS: ANION GAP 14.9 (8-16); CARBON DIOXIDE 27.3 mmol/L (21-32); CREATININE 3.9 mg/dL (0.6-1.3); POTASSIUM 4.2 mmol/L (3.5-5.1)
[2017-12-19] MEDS: ALBUTEROL SULFATE/IPRATROPIU 3 ML SOL IH SCH ×3 (07:56→19:16)
[2017-12-19 08:00] VITALS: BP 138/72
[2017-12-19] MEDS: CALCIUM CARBONATE 500 MG TAB.CHEW PO SCH ×2 (08:44→20:41)
[2017-12-19] MEDS: METOPROLOL 25 MG TAB PO SCH ×2 (08:45→20:42)
[2017-12-19] MEDS: CLOPIDOGREL 75 MG TAB PO SCH (08:45)
[2017-12-19] MEDS: LISINOPRIL 5 MG TAB PO SCH (08:46)
[2017-12-19] MEDS: ASPIRIN 81 MG TAB.CHEW PO SCH (08:46)
[2017-12-19] MEDS: SERTRALINE 50 MG TAB PO SCH (08:46)
[2017-12-19] MEDS: DOCUSATE SODIUM 100 MG GELCAP PO SCH ×2 (08:48→20:42)
--- NOTE | 2017-12-19 08:53 | NUR ---
ADMINISTERED SCHEDULED MEDS TO PATIENT. PATIENT TOLERATED WELL. WILL CONTINUE TO MONITOR.
[2017-12-19] MEDS: INSULIN NPH HUM/REG INSULIN HM 100 UNIT/ML 10 ML VIAL SUBQ SCH ×2 (08:54→20:54)
[2017-12-19] MEDS ORDERED: SODIUM PHOS / POTASSIUM PHOS 1 PKT PDR PO SCH (09:00)
--- NOTE | 2017-12-19 09:00 | NUR ---
ASKED THE PATIENT TO PLEASE LET US KNOW WHEN SHE NEEDED TO URINATE BECAUSE WE NEEDED TO COLLECT A URINE SAMPLE. PT VERBALIZED UNDERSTANDING BUT PT DID STATE SHE DOES NOT URINATE OFTEN, LAST TIME SHE HAD URINE OUTPUT WAS YESTERDAY 12/20/17 AND IT WAS ONLY MINIMAL AMOUNT.
[2017-12-19] MEDS: RANOLAZINE 500 MG TER PO SCH ×2 (09:28→20:43)
--- NOTE | 2017-12-19 10:40 | NUR ---
UNABLE TO REACH PT'S INSURANCE [facility] TEL#: [phone], VOICEMAIL OFFICE IS CLOSED.
--- NOTE | 2017-12-19 10:45 | NUR ---
SPOKE WITH ELEN, COMPUTER NETWORK AND SYSTEMS ENGINEER AND NOTIFIED HER WITH THE TRANSFER ORDER TO CONTRACTED FACILITY. ELEN STATED TO CHECK WITH SHIFT SUPERVISOR MELTING. SOCIAL WORKERS CAN'T SEND OR DO AUTHORIZATIONS PER ELEN. RN MAGNETIC RESONANCE TECHNOLOGIST JOSE R NOTIFIED AND STATED TO CONSULT WITH JORY SINCE WE DON'T HAVE INFORMATIONS REGARDING [place] [address]. DL LEFT ON JORY'S PHONE. AWAITING FOR CALL BACK.
--- NOTE | 2017-12-19 11:23 | NUR ---
PATIENT HAS BEEN SCREENED AND CATEGORIZED MODERATE NUTRITION RISK. PATIENT WILL BE SEEN WITHIN 3-5 DAYS OF ADMISSION. 12/22/17 12/24/17 SETH POWER MBA, RD
--- NOTE | 2017-12-19 11:48 | NUR ---
MULTIPLE CALLS MADE TO PT'S INSURANCE [facility] TEL#: [phone], VOICEMAIL STATED OFFICE IS CLOSED AND WILL OPEN THURSDAY THRU THURSDAY. VOICEMAIL MESSAGE LEFT REGARDING THE TRANSFER TO CONTRACTED FACILITY. AWAITING FOR CALL BACK. RN CHIEF LIBRARIAN BRANCH NOTIFIED.
[2017-12-19 12:00] VITALS: BP 146/65
--- NOTE | 2017-12-19 12:04 | NUR ---
CALLED [facility] TEL#: [phone], SPOKE WITH DARIUS AND STATED THAT THEY ARE AWARE OF THE TRANSFER TO CONTRACTED FACILITY AND THEY ARE WAITING FOR [facility] FOR A BED. DR. CAI NOTIFIED.
--- NOTE | 2017-12-19 12:05 | NUR ---
DARIUS FROM [facility] ALSO STATED THEY WILL TAKE CARE OF PT'S TRANSPORTATION WHEN PT IS READY TO BE TRANSFERRED. LATEST VITAL SIGNS AND LAB RESULTS WERE FAXED TO REQUESTED BY DARIUS, FAX CONFIRMATION PLACED ON CHART.
[2017-12-19] MEDS: amLODIPine 5 MG TAB PO SCH (12:41)
--- NOTE | 2017-12-19 13:31 | NUR ---
ADMINISTERED SCHEDULED MEDS TO PATIENT. PATIENT TOLERATED WELL. WILL CONTINUE TO MONITOR.
--- NOTE | 2017-12-19 14:14 | NUR ---
PATIENT RESTING COMFORTABLY IN BED. ALL NEEDS MET AT THIS TIME. CALL LIGHT WITHIN REACH, BED IN LOW POSITION WITH 2 SIDE RAILS UP. WILL CONTINUE TO MONITOR.
[2017-12-19 16:00] VITALS: BP 131/58
--- NOTE | 2017-12-19 18:02 | NUR ---
FOLLOW UP MADE TO [facility] ( ) REGARDING THE STATUS OF PT'S TRANSFER TO CONTRACTED FACILITY, JESSICA AFTER HOURS WINDOW SHADE CLOTH SEWER STATED SHE WILL EMAIL [place] AND TO CALL THE [facility] STATION FOR THE UP DATE. DR. CAI NOTIFIED.
--- NOTE | 2017-12-19 18:15 | NUR ---
RECEIVED PHONE CALL FROM RESIDENT DOCTOR AT [facility]. THERE IS NO BED AVAILABLE AT [facility] AT THIS TIME.
--- NOTE | 2017-12-19 19:43 | NUR ---
RECEIVED BEDSIDE REPORT FROM RONAN DELGADO, PATIENT IN BED, ON 2 L NC, REPORTED BACK PAIN. REQUESTED NORCO. ABLE TO FOLLOW COMMANDS. NO IV, ASKED PATIENT IF CAN START IV PATIENT STATED "YES LATER". NOTED AV SHUNT ON LEFT ARM, RIGHT UPPER CHEST TUNNELED CATH, DRESSING INTACT. ON FALL PRECAUTIONS, V/S TAKEN ALL WITHIN BASELINE. UPDATED BOARD, EXPLAINED PLAN OF CARE. CALL LIGHT WITHIN REACH, WILL CONTINUE TO MONITOR.
--- NOTE | 2017-12-19 19:43 | NUR ---
ENDORSED PATIENT TO RUBBISH COLLECTION SUPERVISOR NURSE FOR CONTINUITY OF CARE. PATIENT STABLE AT THIS TIME. ALL NEEDS MET.
[2017-12-19 20:00] VITALS: BP 141/66
[2017-12-19] MEDS: ATORVASTATIN 20 MG TAB PO SCH (20:42)
--- NOTE | 2017-12-19 20:42 | NUR ---
DUE MEDICATIONS GIVEN, PATIENT TOLERATED WELL, C/O PAIN 08/25 REQUEST NORCO FOR BACK PAIN, MEDICATED WITH NORCO. CALL LIGHT WITHIN REACH WILL CONTINUE TO MONITOR.
[2017-12-19] MEDS ORDERED: ATORVASTATIN 20 MG TAB PO SCH (21:00)
--- NOTE | 2017-12-19 23:03 | NUR ---
PATIENT AMBULATED X 1 TO RESTROOM, STEADY GAIT.
[2017-12-20] VITALS: BP 113/60
--- NOTE | 2017-12-20 00:50 | NUR ---
PATIENT LEFT UNIT TO RADIOLOGY FOR CT SCAN W/O CONTRAST, PATIENT STABLE.
--- NOTE | 2017-12-20 01:25 | NUR ---
PATIENT ARRIVED BACK TO UNIT, ATTEMPTED TO START IV, PATIENT REFUSED.
--- NOTE | 2017-12-20 03:00 | NUR ---
ATTEMPTED TO START IV WAS UNSUCCESSFUL, ASKED CHARGE NURSE JAMES TO START IV.
[2017-12-20 04:00] VITALS: BP 118/70
--- NOTE | 2017-12-20 05:20 | NUR ---
PATIENT C/O HAVING DIFFICULTY BREATHING, CALLED RT, PATIENT GETTING BREATHING TX.
--- NOTE | 2017-12-20 05:48 | NUR ---
BG 91 NO INSULIN NEEDED, PT NPO SINCE MIDNIGHT.
[2017-12-20] MEDS: BLOOD GLUCOSE MONITORING 1 DEV DEV FS SCH ×4 (05:54→20:28)
[2017-12-20] MEDS: PANTOPRAZOLE 40 MG TABEC PO SCH (06:18)
[2017-12-20] MEDS: ALBUTEROL SULFATE/IPRATROPIU 3 ML SOL IH SCH ×3 (07:06→19:06)
[2017-12-20 07:18] LABS: BASOPHILS # (AUTO) 0.1 K/uL (0.00-0.22); BASOPHILS % (AUTO) 0.6 % (0.0-2.0); EOSINOPHILS # (AUTO) 0.4 K/uL (0-0.4); EOSINOPHILS % (AUTO) 4.3 % (0.0-4.0); HEMATOCRIT 31.4 % (36-48); HEMOGLOBIN 9.7 g/dL (12.0-16.0); LYMPHOCYTES # (AUTO) 1.4 K/uL (2.5-16.5); LYMPHOCYTES % (AUTO) 15.8 % (20.5-51.1); MEAN CORPUSCULAR HEMOGLOBIN 27 pg (27-31); MEAN CORPUSCULAR HGB CONC 31 g/dL (33-37); MEAN CORPUSCULAR VOLUME 88.1 fL (80-94); MONOCYTES # (AUTO) 0.6 K/uL (0.8-1.0); MONOCYTES % (AUTO) 6.8 % (1.7-9.3); NEUTROPHILS # (AUTO) 6.6 K/uL (1.8-7.7); NEUTROPHILS % (AUTO) 72.5 % (42.2-75.2); PLATELET COUNT (AUTO) 340 K/uL (140-450); RED BLOOD CELL COUNT(AUTO) 3.56 MIL/uL (4.20-5.40); RED CELL DISTRIBUTION WIDTH 17.2 % (11.6-13.7); WHITE BLOOD COUNT (AUTO) 9.1 K/uL (4.8-10.8)
[2017-12-20 07:23] LABS: MAGNESIUM 2.2 mg/dL (1.8-2.4); PHOSPHORUS 3.1 mg/dL (2.5-4.9)
[2017-12-20 07:25] LABS: ANION GAP 12.4 (8-16); CARBON DIOXIDE 30.8 mmol/L (21-32); POTASSIUM 4.2 mmol/L (3.5-5.1)
[2017-12-20 07:27] LABS: CREATININE 5.9 mg/dL (0.6-1.3)
--- NOTE | 2017-12-20 07:30 | NUR ---
ENDORSED PATIENT TO DAY SHIFT NURSE, PATIENT STABLE.
--- NOTE | 2017-12-20 07:35 | NUR ---
RECEIVED REPORT FROM OYSTER UNLOADER NURSE. PT IS SLEEPING IN BED, HIGH FOWLERS POSITION, EASILY AWAKEN, AAOX4, AMBULATES WITH ASSIST, PT IS ON O2 2L NC, PT HAS NO IV ACCESS AT THIS TIME, PT HAS RIGHT UPPER CHEST TUNNELED CATH, AV SHUNT ON LEFT UPPER ARM, NO S/S OF RESPIRATORY DISTRESS OR DISCOMFORT NOTED, DISCUSSED PLAN OF CARE WITH PT, PT VERBALIZED UNDERSTANDING, SAFETY/FALL PRECAUTIONS ARE IN PLACE, CALL LIGHT IS WITHIN REACH, WILL CONTINUE TO MONITOR.
[2017-12-20 08:00] VITALS: BP 151/79
[2017-12-20] MEDS: LISINOPRIL 5 MG TAB PO SCH (08:19)
[2017-12-20] MEDS: CLOPIDOGREL 75 MG TAB PO SCH (08:20)
[2017-12-20] MEDS: METOPROLOL 25 MG TAB PO SCH ×2 (08:20→20:27)
--- NOTE | 2017-12-20 08:44 | NUR ---
CALLED PT'S INSURANCE COMPANY [employer] AFTER HOURS STAVE LOG CUT OFF SAW OPERATOR ( ) FOR UP DATE WITH THE TRANSFER TO CONTRACTED FACILITY, NO ANSWER, VM MESSAGE LEFT. AWAITING FOR CALL BACK. DR. CAI NOTIFIED.
[2017-12-20] MEDS: INSULIN NPH HUM/REG INSULIN HM 100 UNIT/ML 10 ML VIAL SUBQ SCH ×2 (09:00→20:35)
[2017-12-20] MEDS: DOCUSATE SODIUM 100 MG GELCAP PO SCH ×2 (09:00→20:26)
[2017-12-20] MEDS: ASPIRIN 81 MG TAB.CHEW PO SCH (09:00)
[2017-12-20] MEDS: RANOLAZINE 500 MG TER PO SCH ×2 (09:00→21:00)
[2017-12-20] MEDS: CALCIUM CARBONATE 500 MG TAB.CHEW PO SCH ×2 (09:00→20:26)
[2017-12-20] MEDS: SERTRALINE 50 MG TAB PO SCH (09:00)
[2017-12-20] MEDS: HYDROcodone/APAP 5/325 MG 1 TAB TAB PO PRN (09:04)
--- NOTE | 2017-12-20 09:31 | NUR ---
Spoke to Zeynep the nursing electrician constructor supervisor at [facility] regarding transfer to contracted facility and there is no Tele bed per Zeynep and waiting for discharges. [place] contact information was given to Zeynep to call [facility] as soon as beds get available.
--- NOTE | 2017-12-20 10:46 | NUR ---
CONTACTED LIDYA FROM PICC LINE SERVICE , STATED [facility] PICC LINE NURSE WILL CALL FOR ETA. ELY ASSIGNED NOTIFIED.
--- NOTE | 2017-12-20 11:07 | NUR ---
I PAGED DR. FERMIN TO INFORM HIM OF THE PICCLINE OR MIDLINE INSERTION ORDER FOR THE PATIENT.
--- NOTE | 2017-12-20 11:30 | NUR ---
PER DR. FERMIN HE WOULD PREFER FOR PATIENT TO HAVE A CENTRAL LINE, NOT A MIDLINE OR PICC LINE.
--- NOTE | 2017-12-20 11:46 | NUR ---
NOTIFIED DR. MIRANDA I HAD SPOKEN TO DR. FERMIN AND HE PREFERS FOR THE PATIENT TO HAVE A CENTRAL LINE, NOT A PICC LINE OR MIDLINE.
[2017-12-20] MEDS ORDERED: FUROSEMIDE 40 MG/4 ML VIAL IVP SCH (13:00)
--- NOTE | 2017-12-20 13:23 | NUR ---
PT HAVING PROCEDURE DONE HHN NOT GIVEN NO RSEP DISTRESS NOTED
--- NOTE | 2017-12-20 13:30 | NUR ---
PATIENT HAD CENTRAL LINE X 3 LUMEN PLACED LEFT SUBCLAVIAN. PT TOLERATED PROCEDURE WELL, 5 POUND BAG PLACED ON CENTRAL LINE FOR PRESSURE, PT IS HAVING MODERATE BLEEDING FROM CENTRAL LINE SITE. CALL LIGHT WITHIN REACH, WILL CONTINUE TO MONITOR.
[2017-12-20] MEDS: amLODIPine 5 MG TAB PO SCH (14:27)
[2017-12-20] MEDS ORDERED: LIDOCAINE 1% 500 MG/50 ML VIAL INJ SCH (15:55)
--- NOTE | 2017-12-20 16:00 | NUR ---
PT IS HAVING BLEED FROM CENTRAL LINE SITE, DR. SARAVIA AND DR. MIRANDA ARE AT PATIENT'S BEDSIDE.
--- NOTE | 2017-12-20 16:10 | NUR ---
DR. MIRANDA RE POSITIONED AND RE SUTURED LEFT CENTRAL LINE. PATIENT TOLERATED WELL. PT IS NO LONGER HAVING BLEEDING FROM CENTRAL LINE.
--- NOTE | 2017-12-20 16:55 | NUR ---
PATIENT TRANSFERRED TO ICU, PT IS ON O2 2L NC, PT LEFT CENTRAL LINE IS NO LONGER BLEEDING, PT HAS NO S/S OF RESPIRATORY DISTRESS NOTED. PT TRANSFERRED IN STABLE CONDITION, REPORT GIVEN TO INDIO IN ICU.
--- NOTE | 2017-12-20 17:00 | NUR ---
PT TRANSFERRED FROM TELE. BEDSIDE REPORT RECEIVED FROM RONAN DELGADO. PT IS LAO SPEAKING. AAOX4. DENIES PAIN. AFEBRILE. FOLLOWS COMMANDS AND ABLE TO MAKE NEEDS KNOWN. SR ON MONITOR. PT IS ON 2LPM O2 VIA NC. BREATHING EVEN BUT LABORED. C/O MILD SOB. BILATERAL LUNGS SOUND DIMINISHED. LEFT IJ TLC IN PLACE. DIALYSIS SITE NOTED TO LEFT AV SHUNT AND RIGHT UPPER CHEST PERMA CATH. ABD SOFT, ROUND, NONTENDER W/ ACTIVE BOWEL SOUNDS. BLOOD SUGAR 108 UPON ARRIVAL. SKIN IS DRY AND WARM TO TOUCH. BED IN LOWEST POSITION AND CALL LIGHT WITHIN REACH. WILL CONTINUE TO MONITOR. Addendum: 12/20/17 at 1826 by Portia Guardado RN SR W/ 1ST DEGREE AV BLOCK AND BBB
[2017-12-20 17:15] VITALS: BP 134/73
--- NOTE | 2017-12-20 17:30 | NUR ---
PROVIDED DINNER. PT ABLE TO EAT INDEPENDENTLY W/ MINIMAL ASSIST. NEEDS WELL ATTENDED.
[2017-12-20 18:00] VITALS: BP 137/67
--- NOTE | 2017-12-20 18:00 | NUR ---
PT ATE 10% OF DINNER, STATING THAT SHE WAS NOT HUNGRY. VSS. NO C/O PAIN OR DISCOMFORT.
[2017-12-20 18:05] LABS: BASOPHILS # (AUTO) 0.1 K/uL (0.00-0.22); BASOPHILS % (AUTO) 1.1 % (0.0-2.0); EOSINOPHILS # (AUTO) 0.4 K/uL (0-0.4); EOSINOPHILS % (AUTO) 4.4 % (0.0-4.0); HEMATOCRIT 35.4 % (36-48); LYMPHOCYTES # (AUTO) 1.3 K/uL (2.5-16.5); LYMPHOCYTES % (AUTO) 13.9 % (20.5-51.1); MEAN CORPUSCULAR HEMOGLOBIN 27 pg (27-31); MEAN CORPUSCULAR HGB CONC 31 g/dL (33-37); MEAN CORPUSCULAR VOLUME 87.1 fL (80-94); MONOCYTES # (AUTO) 0.7 K/uL (0.8-1.0); MONOCYTES % (AUTO) 7.4 % (1.7-9.3); NEUTROPHILS # (AUTO) 6.8 K/uL (1.8-7.7); NEUTROPHILS % (AUTO) 73.2 % (42.2-75.2); PLATELET COUNT (AUTO) 343 K/uL (140-450); RED BLOOD CELL COUNT(AUTO) 4.07 MIL/uL (4.20-5.40); RED CELL DISTRIBUTION WIDTH 16.8 % (11.6-13.7); WHITE BLOOD COUNT (AUTO) 9.3 K/uL (4.8-10.8)
--- NOTE | 2017-12-20 18:27 | NUR ---
PT SEEN AND EXAMINED BY DR. VELÁSQUEZ. WILL FOLLOW UP ON ORDERS.
--- NOTE | 2017-12-20 19:22 | NUR ---
REPORT GIVEN TO NIGHT NURSE FOR CONTINUITY OF CARE. PT IS IN STABLE CONDITION.
--- NOTE | 2017-12-20 19:30 | NUR ---
RECEIVED REPORT FROM MORNING RN FOR CONTINUITY OF CARE. VS STABLE AT THIS TIME. AFEBRILE. DENIES ANY PAIN AT THIS TIME. PT ABLE TO MAKE NEEDS KNOWN AND FOLLOW COMMANDS. LUNG SOUNDS CLEAR. PT ON OXYGEN AT 2L/MIN VIA NC. DENIES SOB AT THIS TIME. NO SIGNS OF RESPIRATORY DISTRESS NOTED. S1+S2 HEARD. SR ON MONITOR WITH 1ST DEGREE AV BLOCK. PULSES PALPABLE. ABDOMEN ROUND, SOFT, AND NONDISTENDED. ANURIC. PT HAS LEFT IJ CENTRAL LINE IN PLACE. NO ACTIVE BLEEDING FROM SITE AT THIS TIME. PT HAS RIGHT UPPER CHEST PERMACATH. NO C/O ANY DISCOMFORT AT THIS TIME. WILL CONTINUE TO MONITOR PT.
--- NOTE | 2017-12-20 19:32 | NUR ---
CALLED RESIDENT DOCTOR, SPOKE WITH DR. VELÁSQUEZ, AND CLARIFIED IF OKAY TO GIVE HEPARIN. PER DR. VELÁSQUEZ HEPARIN IS TO BE CONTINUED.
[2017-12-20 20:00] VITALS: BP 136/68
[2017-12-20] MEDS: ATORVASTATIN 20 MG TAB PO SCH (20:27)
--- NOTE | 2017-12-20 20:37 | NUR ---
DR. RIDLEY CALLED AT 2029 TO ASKED REGARDING PATIENT'S CONDITION, PATIENT IS ASLEEP, ON O2 AT 2LNC BUT NO RESPIRATORY DISTRESS, NO BLEEDING FROM THE CENTRAL LINE SITE ON LIJ, VS STABLE, SR WITH IST DEGREE AV BLOCK ON THE MONITOR, DENIES PAIN. DR. RIDLEY GAVE ORDER TO TRANSFER PATIENT TO TELEMETRY. AUTOCLAVE OPERATOR LOCO INFORMED. DR. VELÁSQUEZ (RESIDENT) INFORMED ALSO.
--- NOTE | 2017-12-20 22:33 | NUR ---
PT WATCHING ON TELEVISION AT THIS TIME. STATES THAT SHE IS OKAY. DENIES ANY PAIN OR ANY DISCOMFORT AT THIS TIME. VS STABLE. OXYGEN SATURATION AT 99%. ENCOURAGED PT TO USE IS.
[2017-12-21] VITALS: BP 128/62
[2017-12-21] MEDS: HYDROcodone/APAP 5/325 MG 1 TAB TAB PO PRN ×3 (00:02→19:51)
--- NOTE | 2017-12-21 00:10 | NUR ---
VS STABLE AT THIS TIME. NO CHANGE IN CONDITION. NO FURTHER BLEEDING NOTED ON CENTRAL LINE SITE. PT DENIES ANY DISCOMFORT AT THIS TIME.
--- NOTE | 2017-12-21 01:17 | NUR ---
PT COMPLAINING OF NAUSEA. MEDICATION ADMINISTERED PER ORDER.
[2017-12-21] MEDS: ONDANSETRON 4 MG/2 ML VIAL IM/IVP PRN (01:19)
--- NOTE | 2017-12-21 02:55 | NUR ---
NO CHANGE IN PT CONDITION AT THIS TIME. ALL SAFETY PRECAUTIONS ARE STILL IN PLACE. FLACC 0. DENIES ANY DISCOMFORT AT THIS TIME.
[2017-12-21 04:00] VITALS: BP 128/75
--- NOTE | 2017-12-21 04:40 | NUR ---
MORNING CARE PROVIDED TO PT. CENTRAL LINE DRESSING CHANGED WELL. NO BLEEDING FROM THE CENTRAL LINE SITE NOTED. VS STABLE. PT WAS ABLE TO ASSIST WITH TURNING AND REPOSITIONING.
[2017-12-21] MEDS: PANTOPRAZOLE 40 MG TABEC PO SCH (05:46)
[2017-12-21 06:59] LABS: BASOPHILS # (AUTO) 0.1 K/uL (0.00-0.22); BASOPHILS % (AUTO) 0.6 % (0.0-2.0); EOSINOPHILS # (AUTO) 0.3 K/uL (0-0.4); EOSINOPHILS % (AUTO) 3.8 % (0.0-4.0); HEMATOCRIT 29.8 % (36-48); HEMOGLOBIN 9.3 g/dL (12.0-16.0); LYMPHOCYTES # (AUTO) 1.2 K/uL (2.5-16.5); LYMPHOCYTES % (AUTO) 12.8 % (20.5-51.1); MEAN CORPUSCULAR HEMOGLOBIN 27 pg (27-31); MEAN CORPUSCULAR HGB CONC 31 g/dL (33-37); MEAN CORPUSCULAR VOLUME 86.6 fL (80-94); MONOCYTES # (AUTO) 0.7 K/uL (0.8-1.0); MONOCYTES % (AUTO) 8.1 % (1.7-9.3); NEUTROPHILS # (AUTO) 6.9 K/uL (1.8-7.7); NEUTROPHILS % (AUTO) 74.7 % (42.2-75.2); PLATELET COUNT (AUTO) 367 K/uL (140-450); RED BLOOD CELL COUNT(AUTO) 3.45 MIL/uL (4.20-5.40); RED CELL DISTRIBUTION WIDTH 17.5 % (11.6-13.7); WHITE BLOOD COUNT (AUTO) 9.2 K/uL (4.8-10.8)
[2017-12-21] MEDS: BLOOD GLUCOSE MONITORING 1 DEV DEV FS SCH ×4 (07:01→21:11)
[2017-12-21 07:16] LABS: ALBUMIN 2.8 g/dL (3.4-5.0); ANION GAP 14.9 (8-16); CARBON DIOXIDE 27.3 mmol/L (21-32); MAGNESIUM 2.2 mg/dL (1.8-2.4); PHOSPHORUS 3.4 mg/dL (2.5-4.9); POTASSIUM 4.2 mmol/L (3.5-5.1); TOTAL BILIRUBIN 0.4 mg/dL (0.0-1.0)
[2017-12-21 07:18] LABS: CREATININE 7.1 mg/dL (0.6-1.3)
--- NOTE | 2017-12-21 07:19 | NUR ---
REPORT GIVEN TO MORNING RN FOR CONTINUITY OF CARE. PT IN STABLE CONDITION AT THIS TIME. ENDORSED TO FOLLOW UP REGARDING DIALYSIS ORDER FOR PT.
--- NOTE | 2017-12-21 07:20 | NUR ---
RECEIVED REPORT FROM [employer] RN AT BEDSIDE, PT IS AAOX4, ABLE TO FOLLOW COMMAND AND MAKE NEEDS KNOWN. VSS, DENIES PAIN. DENIES SOB/DISTRESS, CLEAR LUNG SOUNDS HILL. ON O2 AT 2L VIA NC, O2 SAT 100%, DENIES CHEST PAIN, SR WITH BBB, SOFT ABDOMEN WITH ACTIVE BOWEL SOUNDS, ABLE TO MOVE ALL EXTREMITIES, ANURIC NOTED, SKIN IS WARM AND DRY TO TOUCH, OLD SCAR TO MID CHEST AND HILL INNER LEG NOTED, OLD AV SHUNT TO LEFT ARM, PERMCATH TO RIGHT CHEST NOTED, CENTRAL LINE TO LIJ, TLC, PATENT AND SL. EXPLAINED PLAN OF CARE TO PT, PT VERBALIZED UNDERSTANDING, HOB ELEVATED 30 DEGREES, SAFETY MEASURES IN PLACE, CALL LIGHT WITHIN REACH, PLACED PT TO COMFORT POSITION, WILL CONTINUE TO MONITOR PT.
--- NOTE | 2017-12-21 07:22 | NUR ---
RECEIVED CRITICAL LAB CREATININE 7.1, DR. CLAY PAGED, WAITING FOR CALL BACK.
[2017-12-21] MEDS: ALBUTEROL SULFATE/IPRATROPIU 3 ML SOL IH SCH ×3 (07:28→20:03)
[2017-12-21 08:00] VITALS: BP 129/65
--- NOTE | 2017-12-21 08:30 | NUR ---
DR. HOOD CAME IN TO SEE PT AT BEDSIDE, WILL DO THORACENTESIS AT BEDSIDE.
--- NOTE | 2017-12-21 08:53 | NUR ---
CONSENT SIGNED BY PATIENT, DR. HOOD EXPLAINED THE PROCEDURE TO PT VIA [employer], (ID [id number]), PATIENT VERBALIZED UNDERSTANDING. TIME OUT CALLED AT [phone].
[2017-12-21] MEDS ORDERED: FUROSEMIDE 40 MG/4 ML VIAL IVP SCH (09:00)
--- NOTE | 2017-12-21 09:25 | NUR ---
THORACENTESIS DONE AT BEDSIDE BY DR. HOOD, 1300ML OUTPUT, SENT TO LAB. PT TOLERATED WELL, NO S/S OF DISTRESS, C/O PAIN, MEDICATION GIVEN.
[2017-12-21] MEDS: CALCIUM CARBONATE 500 MG TAB.CHEW PO SCH ×2 (09:30→21:08)
[2017-12-21] MEDS: DOCUSATE SODIUM 100 MG GELCAP PO SCH ×2 (09:31→21:10)
[2017-12-21] MEDS: LISINOPRIL 5 MG TAB PO SCH (09:31)
[2017-12-21] MEDS: SERTRALINE 50 MG TAB PO SCH (09:31)
[2017-12-21] MEDS: METOPROLOL 25 MG TAB PO SCH ×2 (09:32→21:09)
[2017-12-21] MEDS: ASPIRIN 81 MG TAB.CHEW PO SCH (09:32)
[2017-12-21] MEDS: INSULIN NPH HUM/REG INSULIN HM 100 UNIT/ML 10 ML VIAL SUBQ SCH ×2 (09:33→21:20)
[2017-12-21] MEDS: RANOLAZINE 500 MG TER PO SCH ×2 (09:56→21:10)
--- NOTE | 2017-12-21 11:30 | NUR ---
PAGED DR. CLAY AGAIN, COLLISION TECHNICIAN SAID DR. ALDRICH WILL BE COVER DR. CLAY. WAITING FOR CALL BACK. DR. MARION MADE AWARE OF CREATININE RESULT AND PT IS ON HD MWF, DR. MARION SAID SHE WILL CONTACT DR. CLAY.
--- NOTE | 2017-12-21 11:33 | NUR ---
CALLED MAN AND SPOKE WITH VIRY, I FAXED HER THE H&P, PROGRESSNOTE AND CONSULT TO HER AT [phone]. I CALLED [facility] AND SPOKE WITH HALIMA. NO BED YET. HE SAID THE PATIENT WILL GO UNDER DR. FERMIN.
[2017-12-21 12:00] VITALS: BP 121/54
--- NOTE | 2017-12-21 12:00 | NUR ---
NO S/S OF DISTRESS, VSS, DENIES PAIN, AT BEDSIDE.
--- NOTE | 2017-12-21 12:09 | NUR ---
RECEIVED A CALL [facility] AND SHE SAID THAT THEY STILL WANT TO TRANSFER THE PATIENT TO [facility]. I CALLED [facility] AND WAS TOLD THEY ARE STILL WAITING FOR A BED, BUT WOULD HAVE HAVE HALIMA CALL ME BACK. ALSO VIRY SAID SHE NEEDED OUR ATTENDING TO CALL DR. PALOMINO, . I CALLED DR. JAMIL AND HE SAID THAT DR. NUNEZ IS BACK AND HAS THIS PATIENT. I CALLED DR. MARION AND INFORMED HER AND SHE TOOK THE PHONE NUMBER OF DR. PALOMINO TO CALL HIM BACK.
--- NOTE | 2017-12-21 13:05 | NUR ---
DR. OAKES CAME IN TO SEE PT AT BEDSIDE, WILL FOLLOW UP WITH NEW ORDERS.
[2017-12-21] MEDS: amLODIPine 5 MG TAB PO SCH (13:26)
[2017-12-21 13:40] LABS: APPEARANCE,UNSPUN,BODY FLUID HAZY (CLEAR); SPECIMENTYPE,BODY FLUID THORACENTESIS FLUID
[2017-12-21 13:41] LABS: APPEARANCE,SPUN,BODY FLUID CLEAR (CLEAR)
[2017-12-21 13:47] LABS: TOTAL VOLUME,BODY FLUID 2250 mL
[2017-12-21 13:48] LABS: WBC, BODY FLUID 9 /cu. mm.
[2017-12-21 13:49] LABS: RBC, BODY FLUID 3168 /cu. mm.
--- NOTE | 2017-12-21 14:13 | NUR ---
CALLED HD NURSE, DR. OAKES ORDERED HEMOLYSIS FOR PATIENT. CONSENT SIGNED BY PATIENT, EXPLAINED THE PROCEDURE TO PATIENT VIA USING [employer] (ID [id number]).
[2017-12-21 14:27] LABS: GLUCOSE,BODY FLUID 113 mg/dL
[2017-12-21 14:30] LABS: LDH,BODY FLUID 173 U/L
--- NOTE | 2017-12-21 15:01 | NUR ---
CALLED [facility] AND SPOKE WITH STACI IN ADMITTING. NO BED YET. I GAVE HER THE PHONE NUMBER TO ICU TO CALL IF A BED BECOMES AVAILABLE. ADMISSION CHART REVIEW DONE FAXED INITIAL REVIEW TO [facility] [phone] [facility] [phone].
[2017-12-21 16:00] VITALS: BP 110/54
--- NOTE | 2017-12-21 16:00 | NUR ---
NO CHANGE OF CONDITION AT THIS TIME, RESTING IN BED, VSS, DENIES PAIN, NO S/S OF DISTRESS.
--- NOTE | 2017-12-21 16:36 | NUR ---
ACCU CHECK WITH 58 MG/DL AT THIS TIME, NO S/S OF HYPOGLYCEMIA, D50 GIVEN ORDERED, WILL RECHECK LATER.
--- NOTE | 2017-12-21 16:50 | NUR ---
PT TRANSFERRED TO TELE ROOM 114 VIA WHEELCHAIR, VSS, DENIES PAIN, ALL BELONGINGS GOES WITH PT.
--- NOTE | 2017-12-21 17:30 | NUR ---
HD NURSE HERE, STARTED HD.
--- NOTE | 2017-12-21 17:30 | NUR ---
RECHECKED BS LEVEL WITH 137 MG/DL AT THIS TIME.
--- NOTE | 2017-12-21 19:29 | NUR ---
REPORT GIVEN TO POWERHOUSE OPERATOR RN AT BEDSIDE FOR CONTINUE OF CARE, PT IS IN STABLE CONDITION AT THIS TIME.
--- NOTE | 2017-12-21 19:30 | NUR ---
RECEIVED REPORT FROM DAY SHIFT RN, FOR CONTINUITY OF CARE. PT IS A/OX4, ON ROOM AIR, ANGUILLAN SPEAKING. PT IS ABLE TO MAKE NEEDS KNOWN, ABLE TO FOLLOW COMMANDS. PT BREATHS EQUAL AND UNLABORED. PT IS ON BEDREST. PT HAS A LEFT IJ, ASYMPTOMATIC AND INTACT. DISCUSSED PLAN OF CARE WITH PT, PT VERBALIZED UNDERSTANDING. VITAL SIGNS WITHIN NORMAL LIMITS, CURRENTLY RECEIVING DIALYSIS. PT STABLE, NO SIGNS OF DISTRESS NOTED AT THIS TIME. BED IN LOWEST POSITION, BED ALARM ON. CALL LIGHT WITHIN REACH, WILL CONTINUE TO MONITOR.
[2017-12-21 20:00] VITALS: BP 116/62
[2017-12-21] MEDS ORDERED: LIDOCAINE MPF 2% 100 MG/5 ML VIAL INJ SCH (21:00)
[2017-12-21] MEDS: ATORVASTATIN 20 MG TAB PO SCH (21:10)
--- NOTE | 2017-12-21 21:21 | NUR ---
ADMINISTERED SCHEDULED MEDICATIONS, PT TOLERATED WELL. PT REFUSED INSULIN COVERAGE BECAUSE SHE GOT HUMULIN , PT STATES SHE UNDERSTANDS HOW THEY WORK BUT WOULD RATHER NOT PUT HERSELF AT RISK FOR HYPOGLYCEMIA.
[2017-12-22] VITALS: BP 96/50
--- NOTE | 2017-12-22 | NUR ---
VITAL SIGNS WITHIN NORMAL LIMITS. PT STABLE, NO SIGNS OF DISTRESS NOTED AT THIS TIME. BED IN LOWEST POSITION, BED ALARM ON. CALL LIGHT WITHIN REACH, WILL CONTINUE TO MONITOR.
--- NOTE | 2017-12-22 02:15 | NUR ---
PT SITTING IN BED, DANGLING FEET. NO SIGNS OF DISTRESS NOTED AT THIS TIME. BED IN LOWEST POSITION, BED ALARM ON. CALL LIGHT WITHIN REACH, WILL CONTINUE TO MONITOR.
[2017-12-22 04:00] VITALS: BP 112/51
--- NOTE | 2017-12-22 05:36 | NUR ---
ADMINISTERED SCHEDULED MEDICATION, PT TOLERATED WELL.
[2017-12-22] MEDS: PANTOPRAZOLE 40 MG TABEC PO SCH (05:41)
[2017-12-22] MEDS: BLOOD GLUCOSE MONITORING 1 DEV DEV FS SCH ×4 (05:55→20:08)
[2017-12-22 06:17] LABS: FOLIC ACID 4.9 ng/mL (>3.0)
[2017-12-22] MEDS: ALBUTEROL SULFATE/IPRATROPIU 3 ML SOL IH SCH ×3 (07:05→19:12)
[2017-12-22 07:13] LABS: BASOPHILS % (AUTO) 0.4 % (0.0-2.0); EOSINOPHILS # (AUTO) 0.4 K/uL (0-0.4); EOSINOPHILS % (AUTO) 4.2 % (0.0-4.0); HEMATOCRIT 28.5 % (36-48); LYMPHOCYTES # (AUTO) 0.9 K/uL (2.5-16.5); MEAN CORPUSCULAR HEMOGLOBIN 27 pg (27-31); MEAN CORPUSCULAR HGB CONC 32 g/dL (33-37); MEAN CORPUSCULAR VOLUME 86.3 fL (80-94); MONOCYTES # (AUTO) 0.7 K/uL (0.8-1.0); MONOCYTES % (AUTO) 7.5 % (1.7-9.3); NEUTROPHILS # (AUTO) 7.1 K/uL (1.8-7.7); NEUTROPHILS % (AUTO) 77.9 % (42.2-75.2); PLATELET COUNT (AUTO) 310 K/uL (140-450); RED CELL DISTRIBUTION WIDTH 16.6 % (11.6-13.7); WHITE BLOOD COUNT (AUTO) 9.1 K/uL (4.8-10.8)
--- NOTE | 2017-12-22 07:21 | NUR ---
ENDORSED PT TO DAY SHIFT RN FOR CONTINUITY OF CARE. PT IN STABLE CONDITION.
--- NOTE | 2017-12-22 07:22 | NUR ---
RECEIVED REPORT FROM LOADER MACHINE RN AT BEDSIDE FOR CONTINUITY OF CARE. PT IS A/OX4, ON 2L O2 NC, COLOMBIAN SPEAKING. PT IS ABLE TO MAKE NEEDS KNOWN, ABLE TO FOLLOW COMMANDS. RESPIRATIONS EVEN AND UNLABORED. PT IS ON BEDREST. PT HAS A LEFT IJ, ASYMPTOMATIC AND INTACT WITH GOOD BLOOD RETURN, DRESSING DRY, INTACT. DISCUSSED PLAN OF CARE WITH PT, PT VERBALIZED UNDERSTANDING. NO SIGNS OF DISTRESS NOTED AT THIS TIME. PATIENT DENIES PAIN. SAFETY PRECAUTION IN PLACE, BED IN LOWEST POSITION, BED ALARM ON. CALL LIGHT WITHIN REACH, WILL CONTINUE TO MONITOR PATIENT.
[2017-12-22 07:26] LABS: ANION GAP 12.2 (8-16); CARBON DIOXIDE 27.3 mmol/L (21-32); POTASSIUM 3.5 mmol/L (3.5-5.1)
[2017-12-22 07:31] LABS: CREATININE 4.8 mg/dL (0.6-1.3)
[2017-12-22 07:37] LABS: MAGNESIUM 1.8 mg/dL (1.8-2.4); PHOSPHORUS 3.1 mg/dL (2.5-4.9)
[2017-12-22 08:00] VITALS: BP_SYST 105; BP_SYST 15; BP_DIAS 51
[2017-12-22] MEDS: HYDROcodone/APAP 5/325 MG 1 TAB TAB PO PRN (08:54)
--- NOTE | 2017-12-22 08:54 | NUR ---
PATIENT C/O PAIN. PRN PAIN MEDICATION GIVEN. PATIENT TOLERATED IT WELL. WILL CONTINUE TO MONITOR PATIENT.
--- NOTE | 2017-12-22 08:56 | NUR ---
PATIENT C/O 07/26 PAIN. PRN NORCO GIVEN. PATIENT TOLERATED IT WELL. PATIENT NOW TAKEN OFF FLOOR TO RADIOLOGY FOR CHEST XRAY. WILL WAIT FOR RESULTS. PATIENT IN STABLE CONDITION.
[2017-12-22] MEDS: METOPROLOL 25 MG TAB PO SCH ×2 (09:00→20:09)
[2017-12-22] MEDS: LISINOPRIL 5 MG TAB PO SCH (09:00)
[2017-12-22 09:15] LABS: LACTATE DEHYDROGENASE 195 IU/L (119-226)
[2017-12-22] MEDS: CALCIUM CARBONATE 500 MG TAB.CHEW PO SCH ×2 (09:48→20:07)
[2017-12-22] MEDS: DOCUSATE SODIUM 100 MG GELCAP PO SCH ×2 (09:48→20:08)
[2017-12-22] MEDS: SERTRALINE 50 MG TAB PO SCH (09:48)
[2017-12-22] MEDS: ASPIRIN 81 MG TAB.CHEW PO SCH (09:48)
[2017-12-22] MEDS: RANOLAZINE 500 MG TER PO SCH ×2 (09:49→20:09)
--- NOTE | 2017-12-22 09:50 | NUR ---
ORDERED MEDICATIONS GIVEN. PATIENT TOLERATED THEM WELL. METOPROL AND ZESTRIL NOT GIVEN BECAUSE PATIENT'S BP 104/51 HR 84. PATIENT RESTING IN BED, NO SIGNS OF DISTRESS NOTED. WILL CONTINUE TO MONITOR PATIENT.
[2017-12-22] MEDS: INSULIN NPH HUM/REG INSULIN HM 100 UNIT/ML 10 ML VIAL SUBQ SCH ×2 (09:55→20:14)
--- NOTE | 2017-12-22 11:00 | NUR ---
FAXED CONCURRENT REVIEW TO [facility] [phone] INCLUDING PROGRESS NOTES AND CONSULTS. I SPOKE WITH VIRY AT [facility] AND ALSO INFORMED HER NO BED AT [facility].. PHONE [phone]
[2017-12-22 12:00] VITALS: BP 101/51
--- NOTE | 2017-12-22 13:00 | NUR ---
ORDERED NORVASC NOT GIVEN BECAUSE PATIENT'S BP 101/51 HR 80. PATIENT RESTING IN BED, NO SIGNS OF DISTRESS NOTED. WILL CONTINUE TO MONITOR PATIENT.
[2017-12-22] MEDS: amLODIPine 5 MG TAB PO SCH (13:30)
--- NOTE | 2017-12-22 13:36 | NUR ---
PT SLEEPING WITH NO SIGNS OF DISTRESS NOT HHN GIVEN
--- NOTE | 2017-12-22 14:52 | NUR ---
CALLED [facility] AND SPOKE WITH TINO. THEY ARE WORKING ON A BED FOR THIS PATIENT. I GAVE HER THE PHONE NUMBER TO THE FLOOR TO CALL IF A BED BECOMES AVAILABLE.
[2017-12-22 16:00] VITALS: BP 116/57
--- NOTE | 2017-12-22 16:30 | NUR ---
BLOOD SUGAR 91, NO COVERAGE NEEDED. PATIENT SITTING IN CHAIR BY SIDE OF BED, AT BEDSIDE. WILL CONTINUE TO MONITOR PATIENT.
[2017-12-22] MEDS: ONDANSETRON 4 MG/2 ML VIAL IM/IVP PRN ×2 (16:35→20:48)
--- NOTE | 2017-12-22 19:18 | NUR ---
REPORT GIVEN TO INSIDE SALES PROFESSIONAL NURSE AT BEDSIDE FOR CONTINUITY OF CARE. PATIENT IN STABLE CONDITION.
--- NOTE | 2017-12-22 19:20 | NUR ---
RECEIVED REPORT FROM DAY SHIFT RN, FOR CONTINUITY OF CARE. PT IS A/OX4, ON ROOM AIR, RWANDAN SPEAKING. PT IS ABLE TO MAKE NEEDS KNOWN, ABLE TO FOLLOW COMMANDS. PT BREATHS EQUAL AND UNLABORED. PT IS ON BEDREST, SKIN IS INTACT. PT HAS A LEFT IJ, ASYMPTOMATIC AND INTACT. DISCUSSED PLAN OF CARE WITH PT, PT VERBALIZED UNDERSTANDING. VITAL SIGNS WITHIN NORMAL LIMITS, CURRENTLY RECEIVING DIALYSIS. PT STABLE, NO SIGNS OF DISTRESS NOTED AT THIS TIME. BED IN LOWEST POSITION, BED ALARM ON. CALL LIGHT WITHIN REACH, WILL CONTINUE TO MONITOR.
[2017-12-22 20:00] VITALS: BP 109/52
[2017-12-22] MEDS: ATORVASTATIN 20 MG TAB PO SCH (20:07)
--- NOTE | 2017-12-22 20:14 | NUR ---
ADMINISTERED SCHEDULED MEDICATIONS AND AMBIEN FOR INSOMNIA. PT TOLERATED WELL. PT ASKED FOR NAUSEA MEDICATION BECAUSE SHE IS FEELING NAUSEOUS AND WANTS TO VOMIT, WILL ADMINISTER ZOFRAN ORDERED.
--- NOTE | 2017-12-22 22:49 | NUR ---
PT STATES ZOFRAN HELPED WITH HER NAUSEA. AND PT HAD A FRUIT CUP HER SNACK AFTER INSULIN ADMINISTRATION.
[2017-12-23] VITALS: BP 112/76
[2017-12-23] MEDS: HYDROcodone/APAP 5/325 MG 1 TAB TAB PO PRN (00:25)
--- NOTE | 2017-12-23 00:30 | NUR ---
ADMINISTERED NORCO FOR BACK PAIN, PT TOLERATED WELL.
--- NOTE | 2017-12-23 02:15 | NUR ---
PT SITTING IN CHAIR STATES SHE IS FINE SHE JUST WANTS TO SIT.
--- NOTE | 2017-12-23 03:05 | NUR ---
PT STILL SITTING IN CHAIR BUT SHE TOOK OFF HER OXYGEN. PT STATES SHE IS OKAY WITHOUT IT. CHECKED PULSE OX, O2 SATURATION KEPT GOING BETWEEN 80-90%. ASKED HER IF I COULD PUT IT BACK ON HER AND SHE SAID "YES." PUT HER BACK ON OXYGEN AND INSTRUCTED PT NOT TO REMOVE IT, PT VERBALIZED UNDERSTANDING. O2 SAT WENT UP TO 95%.
[2017-12-23 04:00] VITALS: BP 106/48
--- NOTE | 2017-12-23 05:45 | NUR ---
PT REMOVED OXYGEN NO SIGNS OF DISTRESS NOTED, ASKED PT IF SHE WAS DOING OKAY WITHOUT OXYGEN AND SHE SAID "YES I'M FINE." STARTED GETTING BLOOD FROM IJ FOR THE LAB WHEN PT SEEMED CONFUSED AND STARTED SAYING THINGS THAT DIDN'T MAKE SENSE. PT STATES "HOW DID I GET HERE? I WAS OVER THERE." ASSESSED PT AND SHE WAS A/OX2, CHECKED BLOOD SUGAR AND IT WAS 124, PUT THE OXYGEN BACK ON HER AND WENT TO GET VITAL SIGNS MACHINE TO CHECK HER SATURATION LEVEL. WHEN I OUT THE PULSE OX ON HER SHE WAS 92 AND WENT UP TO 97, ALL WHILE ANSWERING QUESTIONS. ASSESSED AGAIN AND SHE IS A/OX4.
[2017-12-23] MEDS: PANTOPRAZOLE 40 MG TABEC PO SCH (05:55)
[2017-12-23] MEDS: BLOOD GLUCOSE MONITORING 1 DEV DEV FS SCH ×3 (05:57→17:01)
--- NOTE | 2017-12-23 05:58 | NUR ---
ADMINISTERED SCHEDULED MEDICATIONS, PT TOLERATED WELL.
[2017-12-23 06:51] LABS: BASOPHILS % (AUTO) 0.5 % (0.0-2.0); EOSINOPHILS # (AUTO) 0.3 K/uL (0-0.4); EOSINOPHILS % (AUTO) 3.7 % (0.0-4.0); HEMATOCRIT 27.7 % (36-48); HEMOGLOBIN 8.7 g/dL (12.0-16.0); LYMPHOCYTES % (AUTO) 10.8 % (20.5-51.1); MEAN CORPUSCULAR HEMOGLOBIN 27 pg (27-31); MEAN CORPUSCULAR HGB CONC 31 g/dL (33-37); MEAN CORPUSCULAR VOLUME 86.2 fL (80-94); MONOCYTES # (AUTO) 0.8 K/uL (0.8-1.0); MONOCYTES % (AUTO) 9.1 % (1.7-9.3); NEUTROPHILS # (AUTO) 6.9 K/uL (1.8-7.7); NEUTROPHILS % (AUTO) 75.9 % (42.2-75.2); PLATELET COUNT (AUTO) 309 K/uL (140-450); RED BLOOD CELL COUNT(AUTO) 3.21 MIL/uL (4.20-5.40); RED CELL DISTRIBUTION WIDTH 17.1 % (11.6-13.7); WHITE BLOOD COUNT (AUTO) 9.1 K/uL (4.8-10.8)
[2017-12-23 06:59] LABS: ANION GAP 15.7 (8-16); CARBON DIOXIDE 25.3 mmol/L (21-32)
[2017-12-23] MEDS: ALBUTEROL SULFATE/IPRATROPIU 3 ML SOL IH SCH ×2 (07:01→13:24)
[2017-12-23 07:08] LABS: MAGNESIUM 1.8 mg/dL (1.8-2.4)
--- NOTE | 2017-12-23 07:17 | NUR ---
ENDORSED PT TO DAY SHIFT RN FOR CONTINUITY OF CARE. PT IN STABLE CONDITION.
--- NOTE | 2017-12-23 07:30 | NUR ---
PATIENT WAS AWAKE, ALERT. RESPIRATION EVEN, UNLABOR ON 2L NC. SKIN DRY AND WARM. CENTRAL LINE PATENT AND INTACT. DENIED PAIN, SOB AT THIS TIME. PLAN OF CARE WAS DISCUSSED WITH PATIENT. BED AT LOW POSITION, SIDE RAILS UP. CALL LIGHT WITHIN REACH
[2017-12-23 08:00] VITALS: BP 131/59
[2017-12-23] MEDS: CALCIUM CARBONATE 500 MG TAB.CHEW PO SCH (08:53)
[2017-12-23] MEDS: DOCUSATE SODIUM 100 MG GELCAP PO SCH (08:53)
[2017-12-23] MEDS: SERTRALINE 50 MG TAB PO SCH (08:53)
[2017-12-23] MEDS: LISINOPRIL 5 MG TAB PO SCH (08:56)
[2017-12-23] MEDS: METOPROLOL 25 MG TAB PO SCH (08:56)
[2017-12-23] MEDS: ASPIRIN 81 MG TAB.CHEW PO SCH (08:56)
[2017-12-23] MEDS: RANOLAZINE 500 MG TER PO SCH (08:56)
--- NOTE | 2017-12-23 09:00 | NUR ---
PATIENT WAS AWAKE, CONFUSED. PATIENT WAS REORIENTED TO ROOM AND STAFF. RESPIRATION EVEN, UNLABOR ON 2L NC. DIALYSIS AT BEDSIDE. NO DISTRESS NOTED. MEDS WERE GIVEN PER ORDER. CALL LIGHT WITHIN REACH
[2017-12-23] MEDS: INSULIN NPH HUM/REG INSULIN HM 100 UNIT/ML 10 ML VIAL SUBQ SCH (09:04)
[2017-12-23 12:00] VITALS: BP 120/52
--- NOTE | 2017-12-23 12:00 | NUR ---
PATIENT WAS RESTING COMFORATBLY. RESPIRATION EVEN, UNLABOR ON 2L NC. DENIED PAIN AT THIS TIME. DIALYSIS AT BEDSIDE. NO DISTRESS NOTED. CALL LIGHT WITHIN REACH
[2017-12-23] MEDS: amLODIPine 5 MG TAB PO SCH (12:15)
--- NOTE | 2017-12-23 14:06 | NUR ---
PATIENT IS SLEEPING COMFORTABLY. RESPIRATION EVEN, UNLABOR ON ROOM AIR. NO DISTRESS NOTED AT THIS TIME. CALL LIGHT WITHIN REACH
--- NOTE | 2017-12-23 15:55 | NUR ---
PATIENT WAS ANXIOUS AND CONFUSED, CRYING AND KEPT REPEATING SHE WANTS TO GO BACK TO ICU. PATIENT WAS REORIENTED TO ROOM , AND STAFF. MED WAS GIVEN PER ORDER. HER SON, RICKI, WAS CALLED AND INFORMED OF SITUATION.
[2017-12-23 16:00] VITALS: BP 110/51
--- NOTE | 2017-12-23 17:38 | NUR ---
JOSE JUAN FROM [facility] GAVE BED RM [address] BASILIA FERMIN IS THE ACCEPTING MD. REPORT TO . DESIZING PAD OPERATOR TIME WILL BE AFTER 7 PM.
[2017-12-23] MEDS: INSULIN LISPRO SLIDING SCALE 100 UNITS/ML VIAL SUBQ PRN (17:42)
--- NOTE | 2017-12-23 17:55 | NUR ---
CALLED MAN AND SPOKE TO ESTEPHANIE, SHE GAVE ME AUTHORIZATION FOR TRANSPORT [phone]. [facility] SET UP FOR 1929.
--- NOTE | 2017-12-23 18:30 | NUR ---
PATIENT AND FAMILY WAS MADE AWARE OF TRANSFERRING TO [facility]. PATIENT VERBALIZED UNDERSTANDING.
--- NOTE | 2017-12-23 19:27 | NUR ---
REPORT WAS GIVEN TO ADAM FERRARO AT [facility]. ENDORSEMENT GIVEN TO SENIOR CLINICIAN NURSE. PATIENT IS STABLE AT THIS TIME
--- NOTE | 2017-12-23 19:30 | NUR ---
RECEIVED BEDSIDE REPORT FROM RONAN KUMAR. PT IS SLEEPING IN BED WITH L CENTRAL LINE PATENT. PT ON 2L OF O2. NO SIGNS OF DISTRESS NOTED AT THIS TIME. SAFETY MEASURES IN PLACE. SIGN ON WALL FOR NO B/P ON LEFT HAND. PT WITH L AV SHUNT. PT HAD DIALYSIS TODAY REMOVED 3000ML. SAFETY MEASURES ARE IN PLACE. FAMILY AT BEDSIDE.
--- NOTE | 2017-12-23 19:40 | NUR ---
GAVE REPORT TO EMT. PT IN STABLE CONDITION.
[2017-12-24 06:15] LABS: LD1 FRACTION 26 % (17-32); LD2 FRACTION 36 % (25-40); LD3 FRACTION 21 % (17-27); LD4 FRACTION 11 % (5-13); LD5 FRACTION 6 % (4-20)
[2017-12-24] MEDS ORDERED: CLOPIDOGREL 75 MG TAB PO SCH (09:00)
== END 2017-12-23 19:45 | disposition short-term general hospital (02) | DRG 314 ==
LOC: MED 21:55 → MTU 12-19 01:14 → MIC 12-20 17:05 → MTU 12-21 16:45
PROVIDERS: ADMIT Family Medicine; ATTEND Family Medicine
PROC: 02HV33Z Insertion of Infusion Device into Superior Vena Cava, Percutaneous Approach (ICD-10-PCS; 2017-12-20)
PROC: B548ZZA Ultrasonography of Superior Vena Cava, Guidance (ICD-10-PCS; 2017-12-20)
PROC: 0W9B3ZX Drainage of Left Pleural Cavity, Percutaneous Approach, Diagnostic (ICD-10-PCS; principal; 2017-12-21)
PROC: 5A1D70Z Performance of Urinary Filtration, Intermittent, Less than 6 Hours Per Day (ICD-10-PCS; 2017-12-21)
PROC: 5A1D70Z Performance of Urinary Filtration, Intermittent, Less than 6 Hours Per Day (ICD-10-PCS; 2017-12-23)
DX: I24.1 Dressler's syndrome (principal); N18.6 End stage renal disease; I50.33 Acute on chronic diastolic (congestive) heart failure; N17.0 Acute kidney failure with tubular necrosis; E43 Unspecified severe protein-calorie malnutrition; J90 Pleural effusion, not elsewhere classified; I13.2 Hypertensive heart and chronic kidney disease with heart failure and with stage 5 chronic kidney disease, or end stage renal disease; J98.11 Atelectasis; K21.9 Gastro-esophageal reflux disease without esophagitis; E11.22 Type 2 diabetes mellitus with diabetic chronic kidney disease; E87.6 Hypokalemia; E83.39 Other disorders of phosphorus metabolism; I25.10 Atherosclerotic heart disease of native coronary artery without angina pectoris; E11.51 Type 2 diabetes mellitus with diabetic peripheral angiopathy without gangrene; F32.9 Major depressive disorder, single episode, unspecified; D63.1 Anemia in chronic kidney disease; E11.65 Type 2 diabetes mellitus with hyperglycemia; E66.9 Obesity, unspecified; Z99.2 Dependence on renal dialysis; Z95.5 Presence of coronary angioplasty implant and graft; Z95.1 Presence of aortocoronary bypass graft; Z68.30 Body mass index [BMI] 30.0-30.9, adult; Z99.81 Dependence on supplemental oxygen; Z88.8 Allergy status to other drugs, medicaments and biological substances; Z79.4 Long term (current) use of insulin; Z79.899 Other long term (current) drug therapy; Z90.49 Acquired absence of other specified parts of digestive tract; Z83.3 Family history of diabetes mellitus
CPT/HCPCS: 36415; 71045; 71250; 76604; 80048; 80053; 82150; 82607; 82728; 82746; 82945; 82948; 83540; 83605; 83615; 83625; 83690; 83735; 83880; 84100; 84134; 84157; 84443; 84484; 85025; 85045; 85610; 85730; 87040; 87070; 87075; 87081; 87102; 87116; 87190; 87205; 87206; 89051; 93005; 94640; 99285; J1642; J1644; J1815; J1940; J2001; J2060; J2405; J3480; J7030; J7620; Q0092

== ENCOUNTER 2018-02-09 19:34 | Inpatient (IN) | payer OTHER ==
[~2018-02-09] VITALS: Ht 149.9 cm; Wt 68.0 kg
[2018-02-09 19:34] VITALS: BP 158/80
[~2018-02-09 19:34] MED LIST changes: -CLOP75TA26 PO
[2018-02-09] MEDS ORDERED: NACL 0.9% 500 ML IV ONE (20:00)
[2018-02-09] MEDS ORDERED: NITROGLYCERIN 2% 1 GM PKT TP ONE ×2 (20:10→20:15)
[2018-02-09 21:05] LABS: HEMATOCRIT 28.6 % (36-48); HEMOGLOBIN 8.8 g/dL (12.0-16.0); MEAN CORPUSCULAR HEMOGLOBIN 27 pg (27-31); MEAN CORPUSCULAR HGB CONC 31 g/dL (33-37); MEAN CORPUSCULAR VOLUME 88.4 fL (80-94); PLATELET COUNT (AUTO) 190 K/uL (140-450); RED BLOOD CELL COUNT(AUTO) 3.23 MIL/uL (4.20-5.40); WHITE BLOOD COUNT (AUTO) 6.8 K/uL (4.8-10.8)
[2018-02-09 21:23] LABS: LYMPHOCYTES % (MANUAL) 6 % (20-46); MONOCYTES % (MANUAL) 3 % (5-12); RED CELL DISTRIBUTION WIDTH 22.9 % (11.6-13.7)
[2018-02-09 21:24] LABS: ALBUMIN 3.1 g/dL (3.4-5.0); ANION GAP 12.4 (8-16); CARBON DIOXIDE 29.7 mmol/L (21-32); POTASSIUM 4.1 mmol/L (3.5-5.1); TOTAL BILIRUBIN 0.4 mg/dL (0.0-1.0)
[2018-02-09 21:27] LABS: PROTHROMBIN TIME 11.3 secs (10.8-13.4)
[2018-02-09 21:38] LABS: CREATININE 6.1 mg/dL (0.6-1.3)
[2018-02-09 21:45] VITALS: BP 154/67
[2018-02-09] MEDS ORDERED: INSULIN REGULAR, HUMAN 100 UNIT/ML VIAL IV ONE (21:45)
[2018-02-09 21:57] LABS: APPEARANCE,URINE SLIGHTLY CLOUDY (CLEAR); BILIRUBIN,URINE NEGATIVE (NEGATIVE); BLOOD, URINE 1+ (NEGATIVE); COLOR,URINE YELLOW (YELLOW); LEUKOCYTE ESTERASE ,URINE TRACE (NEGATIVE); NITRITE, URINE NEGATIVE (NEGATIVE); PH,URINE 6.5 (5.0-9.0); UGLUCOSE 3+ (NEGATIVE)
[2018-02-09 22:01] LABS: RBC,URINE TOO NUMEROUS TO COUN /HPF (0-5); WBC,URINE TOO MANY TO COUNT /HPF (0-5)
[2018-02-09] MEDS ORDERED: LEVOFLOXACIN 500 MG/D5W PREMIX 100 ML IV ONE (22:20)
[2018-02-09] MEDS ORDERED: ASPIRIN 81 MG TAB.CHEW PO ONE (22:20)
[2018-02-09] MEDS ORDERED: NACL 0.9% 1,000 ML IV SCH (22:46)
[2018-02-09] MEDS ORDERED: ACETAMINOPHEN 325 MG TAB PO PRN (22:50)
[2018-02-09] MEDS ORDERED: DOCUSATE SODIUM 100 MG GELCAP PO PRN (22:50)
[2018-02-09] MEDS ORDERED: HYDROcodone/APAP 7.5/325 MG 1 TAB PO PRN (22:50)
[2018-02-09 23:55] LABS: BARBITURATE, URINE NEG. ng/ml (NEG <=200); BENZODIAZEPINE, URINE NEG. ng/mL (NEG <=200); CANNABINOID, URINE NEG. ng/mL (NEG <=50); COCAINE, URINE NEG. ng/mL (NEG <=300); OPIATE, URINE NEG. ng/mL (NEG <=2000); PHENCYCLIDINE SCREEN,URINE NEG. ng/mL (NEG <=25)
[2018-02-10 00:04] LABS: CHOL/HDL RATIO 2.3 (1-4.5); FREE T4 (FREE THYROXINE) 1.66 ng/dL (0.76-1.46); MAGNESIUM 2.3 mg/dL (1.8-2.4); PHOSPHORUS 2.4 mg/dL (2.5-4.9); THYROID STIMULATING HORMONE 2.55 uIU/mL (0.34-3.74)
[2018-02-10] MEDS ORDERED: DEXTROSE 50% 50 ML SYR IVP PRN (00:30)
[2018-02-10] MEDS ORDERED: INSULIN LANTUS 100 UNITS/ML 10 ML VIAL SUBQ ONE ×2 (00:40→00:50)
[2018-02-10] MEDS ORDERED: NITROGLYCERIN 0.4 MG TAB SL PRN (01:00)
[2018-02-10] MEDS ORDERED: ALBUTEROL SULFATE/IPRATROPIU 3 ML SOL IH PRN (01:00)
[2018-02-10] MEDS: BLOOD GLUCOSE MONITORING 1 DEV DEV FS SCH ×4 (01:02→20:25)
[2018-02-10] MEDS ORDERED: NEOMYCIN/POLYMYXIN/BACITRACIN 0.9 GM/1 PKT TP PRN ×2 (01:05→07:11)
[2018-02-10] MEDS: INSULIN LISPRO SLIDING SCALE 100 UNITS/ML VIAL SUBQ PRN ×3 (01:05→21:19)
[2018-02-10] MEDS: ALBUTEROL SULFATE/IPRATROPIU 3 ML SOL IH SCH ×4 (01:46→20:24)
[2018-02-10] MEDS ORDERED: LORazepam 2 MG/ML VIAL IVP ONE (02:00)
[2018-02-10 04:00] VITALS: BP 130/58
[2018-02-10 07:26] LABS: BASOPHILS % (AUTO) 0.6 % (0.0-2.0); EOSINOPHILS # (AUTO) 0.2 K/uL (0-0.4); EOSINOPHILS % (AUTO) 2.8 % (0.0-4.0); HEMATOCRIT 26.6 % (36-48); HEMOGLOBIN 8.3 g/dL (12.0-16.0); LYMPHOCYTES # (AUTO) 0.9 K/uL (2.5-16.5); LYMPHOCYTES % (AUTO) 15.7 % (20.5-51.1); MEAN CORPUSCULAR HEMOGLOBIN 27 pg (27-31); MEAN CORPUSCULAR HGB CONC 31 g/dL (33-37); MEAN CORPUSCULAR VOLUME 87.8 fL (80-94); MONOCYTES # (AUTO) 0.5 K/uL (0.8-1.0); MONOCYTES % (AUTO) 9.7 % (1.7-9.3); NEUTROPHILS % (AUTO) 71.2 % (42.2-75.2); PLATELET COUNT (AUTO) 171 K/uL (140-450); RED BLOOD CELL COUNT(AUTO) 3.02 MIL/uL (4.20-5.40); RED CELL DISTRIBUTION WIDTH 22.8 % (11.6-13.7); WHITE BLOOD COUNT (AUTO) 5.6 K/uL (4.8-10.8)
[2018-02-10 08:00] VITALS: BP 122/63
[2018-02-10] MEDS ORDERED: INSULIN LANTUS 100 UNITS/ML 10 ML VIAL SUBQ SCH ×2 (09:00)
[2018-02-10] MEDS: METOPROLOL 25 MG TAB PO SCH ×2 (09:00→21:00)
[2018-02-10] MEDS: PANTOPRAZOLE 40 MG TABEC PO SCH (10:41)
[2018-02-10] MEDS: SERTRALINE 50 MG TAB PO SCH (10:41)
[2018-02-10] MEDS: ATORVASTATIN 20 MG TAB PO SCH (10:41)
[2018-02-10 11:18] LABS: CREATININE 6.2 mg/dL (0.6-1.3)
[2018-02-10 12:00] VITALS: BP 130/55
[2018-02-10] MEDS ORDERED: amLODIPine 5 MG TAB PO SCH (13:00)
[2018-02-10] MEDS: SILVER SULFADIAZINE 1% 50 GM JAR TP SCH (15:19)
[2018-02-10] MEDS ORDERED: EPOETIN ALFA 3,000 UNITS/ML VIAL SUBQ SCH (15:50)
[2018-02-10] MEDS ORDERED: EPOETIN ALFA 3,000 UNITS/ML VIAL IV SCH (15:53)
[2018-02-10 16:00] VITALS: BP 129/61
[2018-02-10] MEDS ORDERED: PIPER/TAZO 2.25GM/D5W PREMIX 50 ML IV SCH (16:00)
[2018-02-10 20:00] VITALS: BP 105/53
[2018-02-10] MEDS: INSULIN LANTUS 100 UNITS/ML 10 ML VIAL SUBQ SCH (21:20)
[2018-02-11] VITALS: BP 122/59
[2018-02-11] MEDS: ALBUTEROL SULFATE/IPRATROPIU 3 ML SOL IH SCH ×4 (00:40→20:14)
[2018-02-11] MEDS: ONDANSETRON 4 MG/2 ML VIAL IM/IVP PRN ×2 (02:01→23:08)
[2018-02-11 04:00] VITALS: BP 96/68
[2018-02-11] MEDS: BLOOD GLUCOSE MONITORING 1 DEV DEV FS SCH ×4 (06:10→20:46)
[2018-02-11] MEDS: INSULIN LISPRO SLIDING SCALE 100 UNITS/ML VIAL SUBQ PRN (06:12)
[2018-02-11 07:52] LABS: BASOPHILS % (AUTO) 0.6 % (0.0-2.0); EOSINOPHILS # (AUTO) 0.2 K/uL (0-0.4); EOSINOPHILS % (AUTO) 4.4 % (0.0-4.0); HEMATOCRIT 27.6 % (36-48); HEMOGLOBIN 8.5 g/dL (12.0-16.0); LYMPHOCYTES # (AUTO) 0.8 K/uL (2.5-16.5); LYMPHOCYTES % (AUTO) 14.1 % (20.5-51.1); MEAN CORPUSCULAR HEMOGLOBIN 27 pg (27-31); MEAN CORPUSCULAR HGB CONC 31 g/dL (33-37); MEAN CORPUSCULAR VOLUME 88.4 fL (80-94); MONOCYTES # (AUTO) 0.5 K/uL (0.8-1.0); MONOCYTES % (AUTO) 9.7 % (1.7-9.3); NEUTROPHILS # (AUTO) 3.9 K/uL (1.8-7.7); NEUTROPHILS % (AUTO) 71.2 % (42.2-75.2); PLATELET COUNT (AUTO) 173 K/uL (140-450); RED BLOOD CELL COUNT(AUTO) 3.12 MIL/uL (4.20-5.40); RED CELL DISTRIBUTION WIDTH 22.9 % (11.6-13.7); WHITE BLOOD COUNT (AUTO) 5.5 K/uL (4.8-10.8)
[2018-02-11 08:00] VITALS: BP 129/60
[2018-02-11] MEDS: ATORVASTATIN 20 MG TAB PO SCH (08:17)
[2018-02-11] MEDS: PIPER/TAZO 2.25GM/D5W PREMIX 50 ML IV SCH ×2 (08:17→20:48)
[2018-02-11] MEDS: SERTRALINE 50 MG TAB PO SCH (08:18)
[2018-02-11] MEDS: METOPROLOL 25 MG TAB PO SCH ×2 (08:18→20:48)
[2018-02-11] MEDS: PANTOPRAZOLE 40 MG TABEC PO SCH (08:18)
[2018-02-11 08:28] LABS: MAGNESIUM 1.9 mg/dL (1.8-2.4); PHOSPHORUS 2.6 mg/dL (2.5-4.9)
[2018-02-11 08:38] LABS: CARBON DIOXIDE 29.5 mmol/L (21-32); POTASSIUM 3.5 mmol/L (3.5-5.1)
[2018-02-11 08:39] LABS: T4 (THYROXINE) 9.1 ug/dL (4.5-12.0)
[2018-02-11 08:41] LABS: CREATININE 4.4 mg/dL (0.6-1.3)
[2018-02-11 16:00] VITALS: BP 131/62
[2018-02-11] MEDS: SILVER SULFADIAZINE 1% 50 GM JAR TP SCH (16:57)
[2018-02-11] MEDS: INSULIN LANTUS 100 UNITS/ML 10 ML VIAL SUBQ SCH (20:47)
[2018-02-12] VITALS: BP 128/63
[2018-02-12] MEDS: ALBUTEROL SULFATE/IPRATROPIU 3 ML SOL IH SCH ×4 (00:51→19:15)
[2018-02-12] MEDS: ONDANSETRON 4 MG/2 ML VIAL IM/IVP PRN ×2 (05:43→20:21)
[2018-02-12] MEDS: BLOOD GLUCOSE MONITORING 1 DEV DEV FS SCH ×4 (07:30→20:18)
[2018-02-12 08:00] VITALS: BP 105/60
[2018-02-12 08:11] LABS: BASOPHILS # (AUTO) 0.1 K/uL (0.00-0.22); BASOPHILS % (AUTO) 0.9 % (0.0-2.0); EOSINOPHILS # (AUTO) 0.2 K/uL (0-0.4); EOSINOPHILS % (AUTO) 3.4 % (0.0-4.0); HEMOGLOBIN 8.9 g/dL (12.0-16.0); LYMPHOCYTES # (AUTO) 0.9 K/uL (2.5-16.5); LYMPHOCYTES % (AUTO) 13.2 % (20.5-51.1); MEAN CORPUSCULAR HEMOGLOBIN 27 pg (27-31); MEAN CORPUSCULAR HGB CONC 31 g/dL (33-37); MEAN CORPUSCULAR VOLUME 87.8 fL (80-94); MONOCYTES # (AUTO) 0.7 K/uL (0.8-1.0); MONOCYTES % (AUTO) 9.8 % (1.7-9.3); NEUTROPHILS # (AUTO) 5.2 K/uL (1.8-7.7); NEUTROPHILS % (AUTO) 72.7 % (42.2-75.2); PLATELET COUNT (AUTO) 164 K/uL (140-450); RED CELL DISTRIBUTION WIDTH 22.2 % (11.6-13.7); WHITE BLOOD COUNT (AUTO) 7.2 K/uL (4.8-10.8)
[2018-02-12 08:16] LABS: ANION GAP 13.9 (8-16); CARBON DIOXIDE 28.2 mmol/L (21-32); POTASSIUM 4.1 mmol/L (3.5-5.1)
[2018-02-12 08:50] LABS: MAGNESIUM 2.1 mg/dL (1.8-2.4); PHOSPHORUS 4.1 mg/dL (2.5-4.9)
[2018-02-12 08:57] LABS: CREATININE 5.5 mg/dL (0.6-1.3)
[2018-02-12] MEDS: METOPROLOL 25 MG TAB PO SCH ×2 (09:00→20:18)
[2018-02-12] MEDS: PIPER/TAZO 2.25GM/D5W PREMIX 50 ML IV SCH ×2 (09:06→20:19)
[2018-02-12] MEDS: ATORVASTATIN 20 MG TAB PO SCH (09:08)
[2018-02-12] MEDS: SERTRALINE 50 MG TAB PO SCH (09:08)
[2018-02-12] MEDS: PANTOPRAZOLE 40 MG TABEC PO SCH (09:08)
[2018-02-12] MEDS: EPOETIN ALFA 2,000 UNITS/ML VIAL IV SCH ×2 (09:10→12:29)
[2018-02-12] MEDS: INSULIN LISPRO SLIDING SCALE 100 UNITS/ML VIAL SUBQ PRN ×2 (12:39→18:05)
[2018-02-12] MEDS: SILVER SULFADIAZINE 1% 50 GM JAR TP SCH (14:00)
[2018-02-12 16:00] VITALS: BP 131/59
[2018-02-12] MEDS: INSULIN LANTUS 100 UNITS/ML 10 ML VIAL SUBQ SCH (20:46)
[2018-02-13] MEDS: ALBUTEROL SULFATE/IPRATROPIU 3 ML SOL IH SCH ×2 (01:09→07:42)
[2018-02-13] MEDS: ONDANSETRON 4 MG/2 ML VIAL IM/IVP PRN (01:24)
[2018-02-13] MEDS ORDERED: LORazepam 2 MG/ML VIAL IM/IVP PRN (03:00)
[2018-02-13 07:32] LABS: ANION GAP 15.3 (8-16); CARBON DIOXIDE 28.5 mmol/L (21-32); POTASSIUM 3.8 mmol/L (3.5-5.1)
[2018-02-13 07:34] LABS: BASOPHILS # (AUTO) 0.1 K/uL (0.00-0.22); BASOPHILS % (AUTO) 1.1 % (0.0-2.0); EOSINOPHILS # (AUTO) 0.3 K/uL (0-0.4); LYMPHOCYTES # (AUTO) 1.3 K/uL (2.5-16.5); MEAN CORPUSCULAR HEMOGLOBIN 27 pg (27-31); MEAN CORPUSCULAR HGB CONC 31 g/dL (33-37); MEAN CORPUSCULAR VOLUME 87.7 fL (80-94); MONOCYTES # (AUTO) 0.5 K/uL (0.8-1.0); MONOCYTES % (AUTO) 9.9 % (1.7-9.3); NEUTROPHILS # (AUTO) 3.3 K/uL (1.8-7.7); PLATELET COUNT (AUTO) 219 K/uL (140-450); RED BLOOD CELL COUNT(AUTO) 3.65 MIL/uL (4.20-5.40); RED CELL DISTRIBUTION WIDTH 21.9 % (11.6-13.7); WHITE BLOOD COUNT (AUTO) 5.5 K/uL (4.8-10.8)
[2018-02-13 07:36] LABS: MAGNESIUM 2.1 mg/dL (1.8-2.4); PHOSPHORUS 4.1 mg/dL (2.5-4.9)
[2018-02-13] MEDS: BLOOD GLUCOSE MONITORING 1 DEV DEV FS SCH (07:43)
[2018-02-13] MEDS: INSULIN LISPRO SLIDING SCALE 100 UNITS/ML VIAL SUBQ PRN (07:45)
[2018-02-13] MEDS ORDERED: LEVO750T2 PO (07:48)
[2018-02-13] MEDS ORDERED: INUL1CTB PO (07:48)
[2018-02-13 07:50] LABS: CREATININE 4.9 mg/dL (0.6-1.3)
[2018-02-13 08:00] VITALS: BP 157/69
[2018-02-13] MEDS: SERTRALINE 50 MG TAB PO SCH (08:58)
[2018-02-13] MEDS: ATORVASTATIN 20 MG TAB PO SCH (08:58)
[2018-02-13] MEDS: PIPER/TAZO 2.25GM/D5W PREMIX 50 ML IV SCH (08:58)
[2018-02-13] MEDS: PANTOPRAZOLE 40 MG TABEC PO SCH (08:59)
[2018-02-13] MEDS: METOPROLOL 25 MG TAB PO SCH (08:59)
[2018-02-13 09:31] VITALS: BP 157/69
== END 2018-02-13 10:40 | disposition home or self-care (01) | DRG 871 ==
LOC: MED 19:34 → MTU 22:46
PROVIDERS: ADMIT General Practice; ATTEND General Practice
PROC: 5A09357 Assistance with Respiratory Ventilation, Less than 24 Consecutive Hours, Continuous Positive Airway Pressure (ICD-10-PCS; principal; 2018-02-09)
PROC: 5A1D70Z Performance of Urinary Filtration, Intermittent, Less than 6 Hours Per Day (ICD-10-PCS; 2018-02-10)
PROC: 5A1D70Z Performance of Urinary Filtration, Intermittent, Less than 6 Hours Per Day (ICD-10-PCS; 2018-02-12)
DX: A41.9 Sepsis, unspecified organism (principal); J69.0 Pneumonitis due to inhalation of food and vomit; I50.43 Acute on chronic combined systolic (congestive) and diastolic (congestive) heart failure; N18.6 End stage renal disease; N17.0 Acute kidney failure with tubular necrosis; J96.01 Acute respiratory failure with hypoxia; I21.A1 Myocardial infarction type 2; N39.0 Urinary tract infection, site not specified; E44.1 Mild protein-calorie malnutrition; I13.2 Hypertensive heart and chronic kidney disease with heart failure and with stage 5 chronic kidney disease, or end stage renal disease; E87.1 Hypo-osmolality and hyponatremia; E11.65 Type 2 diabetes mellitus with hyperglycemia; Z99.2 Dependence on renal dialysis; E11.22 Type 2 diabetes mellitus with diabetic chronic kidney disease; D63.1 Anemia in chronic kidney disease; E78.5 Hyperlipidemia, unspecified; I25.10 Atherosclerotic heart disease of native coronary artery without angina pectoris; K21.9 Gastro-esophageal reflux disease without esophagitis; E11.51 Type 2 diabetes mellitus with diabetic peripheral angiopathy without gangrene; F43.9 Reaction to severe stress, unspecified; E87.8 Other disorders of electrolyte and fluid balance, not elsewhere classified; F32.9 Major depressive disorder, single episode, unspecified; E11.42 Type 2 diabetes mellitus with diabetic polyneuropathy; T24.012A Burn of unspecified degree of left thigh, initial encounter; I44.7 Left bundle-branch block, unspecified; Z79.4 Long term (current) use of insulin; Z95.1 Presence of aortocoronary bypass graft; Z88.8 Allergy status to other drugs, medicaments and biological substances; Z79.899 Other long term (current) drug therapy; Z86.73 Personal history of transient ischemic attack (TIA), and cerebral infarction without residual deficits; Z95.5 Presence of coronary angioplasty implant and graft; Z90.49 Acquired absence of other specified parts of digestive tract; Z83.3 Family history of diabetes mellitus; Z68.30 Body mass index [BMI] 30.0-30.9, adult
CPT/HCPCS: 36415; 36600; 71045; 71250; 76604; 80048; 80053; 80305; 81001; 82150; 82728; 82803; 82948; 83036; 83540; 83605; 83690; 83735; 83880; 84100; 84436; 84439; 84443; 84479; 84484; 85025; 85610; 85730; 87040; 87081; 87086; 93005; 93925; 93970; 94640; 96361; 96365; 96375; 99285; J0885; J1644; J1815; J1956; J2060; J2405; J2543; J7030; J7620; Q0092

== ENCOUNTER 2018-06-27 23:55 | Inpatient (IN) | payer OTHER ==
[~2018-06-27] VITALS: Ht 152.4 cm; Wt 63.5 kg
[~2018-06-27 23:55] MED LIST changes: -AMLO5TAB4 PO; +AMLO5TAB6 PO; +INUL1CTB PO; +LEVO750T2 PO
--- NOTE | 2018-06-27 23:55 | NUR ---
PATIENT BIB EMS TO ER BED 10.
[2018-06-27 23:56] VITALS: BP 144/63
--- NOTE | 2018-06-28 | NUR ---
PT PRESENTS TO ED BIBA FOR C/O GENERALIZED WEAKNESS SUDDEN ONSET X 1 HR. PT REPORTS HOME ACCUCHECK OF 260 AND ADMITS TO TAKING 5U INSULIN AT HOME AND THEN REPORTS "SHE PASSED OUT WHILE SITTING". UPON ARRIVAL PT SKIN APPEARS TO BE COLD AND CLAMMY AND DIAPHORETIC. PT IS ALERT TO NAME AND BIRTHDAY BUT UNABLE TO ANSWER WHERE SHE IS. PT HAS NORMAL BILATERAL JOINT CLEANING MACHINE OPERATOR, PUPILS EQUAL, NO NEURO DEFECITS NOTED. PT PLACED INTO BED, PENDING MD SMITH.
[2018-06-28] MEDS ORDERED: AMLO5TAB PO (00:11)
--- NOTE | 2018-06-28 00:22 | NUR ---
EKG PERFORMED AT BEDSIDE
[2018-06-28 00:50] LABS: BASOPHILS % (AUTO) 0.5 % (0.0-2.0); EOSINOPHILS # (AUTO) 0.3 K/uL (0-0.4); HEMOGLOBIN 13.7 g/dL (12.0-16.0); LYMPHOCYTES # (AUTO) 1.4 K/uL (2.5-16.5); LYMPHOCYTES % (AUTO) 17.7 % (20.5-51.1); MEAN CORPUSCULAR HEMOGLOBIN 27 pg (27-31); MEAN CORPUSCULAR HGB CONC 32 g/dL (33-37); MONOCYTES # (AUTO) 0.4 K/uL (0.8-1.0); MONOCYTES % (AUTO) 5.7 % (1.7-9.3); NEUTROPHILS # (AUTO) 5.6 K/uL (1.8-7.7); NEUTROPHILS % (AUTO) 72.1 % (42.2-75.2); PLATELET COUNT (AUTO) 229 K/uL (140-450); RED BLOOD CELL COUNT(AUTO) 5.11 MIL/uL (4.20-5.40); RED CELL DISTRIBUTION WIDTH 20.1 % (11.6-13.7); WHITE BLOOD COUNT (AUTO) 7.8 K/uL (4.8-10.8)
[2018-06-28 01:01] LABS: ANION GAP 19.8 (8-16); CARBON DIOXIDE 25.3 mmol/L (21-32); POTASSIUM 3.1 mmol/L (3.5-5.1)
[2018-06-28 01:03] LABS: CREATININE 7.9 mg/dL (0.6-1.3)
[2018-06-28 01:16] LABS: ALBUMIN 3.8 g/dL (3.4-5.0); TOTAL BILIRUBIN 0.3 mg/dL (0.0-1.0)
[2018-06-28 01:57] LABS: APPEARANCE,URINE CLOUDY (CLEAR); BILIRUBIN,URINE NEGATIVE (NEGATIVE); BLOOD, URINE 2+ (NEGATIVE); COLOR,URINE YELLOW (YELLOW); LEUKOCYTE ESTERASE ,URINE 3+ (NEGATIVE); NITRITE, URINE NEGATIVE (NEGATIVE); PH,URINE 6.5 (5.0-9.0); UGLUCOSE NEGATIVE (NEGATIVE)
[2018-06-28 02:15] LABS: WBC,URINE TOO MANY TO COUNT /HPF (0-5)
--- NOTE | 2018-06-28 02:34 | NUR ---
PT PROVIDED WITH BLANKET AND PILLOW NO NEW COMPLAINTS OR CONCERNS. WILL CONTINUE TO MONITOR.
[2018-06-28] MEDS ORDERED: LORazepam 2 MG/ML VIAL IM/IVP PRN (03:50)
[2018-06-28] MEDS ORDERED: HYDROcodone/APAP 5/325 MG 1 TAB TAB PO PRN (03:50)
[2018-06-28] MEDS ORDERED: MORPHINE SULFATE 2 MG/ML SYR IVP PRN (03:50)
[2018-06-28] MEDS ORDERED: ACETAMINOPHEN 325 MG TAB PO PRN (03:50)
--- NOTE | 2018-06-28 04:00 | NUR ---
RECEIVED PT FROM ER VIA [place], PT Gina, Gina O X 4, ERITREAN SPEAKING BUT CAN UNDERSTAND LITTLE MOROCCAN. PT ABLE TO AMBULATE MAX ASSIST BUT W/ GENERALIZED WEAKNESS. W/ IV ON THE R HAND G 24, PATENT. PT W/ HEMODIALYSIS SITE - AV SHUNT ON LEFT UPPER ARM. LEFT ARM RESTRICTED. POC DISCUSSED, CALL LIGHT W/IN REACH. FALL RISK PRECAUTION INITIATED.
[2018-06-28 04:05] VITALS: BP 124/64
[2018-06-28 04:07] LABS: BARBITURATE, URINE NEG. ng/ml (NEG <=200); BENZODIAZEPINE, URINE NEG. ng/mL (NEG <=200); CANNABINOID, URINE NEG. ng/mL (NEG <=50); COCAINE, URINE NEG. ng/mL (NEG <=300); OPIATE, URINE NEG. ng/mL (NEG <=2000); PHENCYCLIDINE SCREEN,URINE NEG. ng/mL (NEG <=25)
[2018-06-28 04:09] LABS: PROTHROMBIN TIME 10.5 secs (10.8-13.4)
--- NOTE | 2018-06-28 04:10 | NUR ---
Patient will be admitted to care of DR NUNEZ. Admited to TELE. Will go to room 114. Belongings list completed. Report to RONAN BUCKNER.
--- NOTE | 2018-06-28 04:30 | NUR ---
PT SLEEPING, AND PT CARE DONE. PT MADE COMFORTABLE.
[2018-06-28 04:32] LABS: CHOL/HDL RATIO 2.3 (1-4.5); MAGNESIUM 3.3 mg/dL (1.8-2.4); PHOSPHORUS 7.6 mg/dL (2.5-4.9); THYROID STIMULATING HORMONE 1.97 uIU/mL (0.34-3.74)
[2018-06-28] MEDS ORDERED: MECLIZINE 25 MG TAB PO PRN (04:55)
[2018-06-28] MEDS ORDERED: DEXTROSE 50% 50 ML SYR IVP PRN (04:55)
[2018-06-28] MEDS ORDERED: NITROGLYCERIN 0.2 MG/HR PATCH TD PRN (04:55)
[2018-06-28] MEDS: NACL 0.9% 1,000 ML IV SCH (05:21)
--- NOTE | 2018-06-28 05:34 | NUR ---
CREATINE (BLOOD HIGH 7.9) WILL INFORM
[2018-06-28] MEDS: BLOOD GLUCOSE MONITORING 1 DEV DEV FS SCH ×4 (06:00→20:53)
[2018-06-28] MEDS ORDERED: cefTRIAXone 1,000 MG VIAL ONE (06:17)
[2018-06-28 06:42] VITALS: BP 124/64
[2018-06-28] MEDS: PANTOPRAZOLE 40 MG TABEC PO SCH (07:03)
--- NOTE | 2018-06-28 07:09 | NUR ---
ENDORSED TO NEXT SHIFT PT AWAKE, ALERT X 0 4. W/ GENERALIZED WEAKNESS, NO SOB NO COMPLAINTS OF PAIN AT THIS TIME.
--- NOTE | 2018-06-28 07:10 | NUR ---
RECEIVED REPORT FROM UX ENGINEER RN. PT RESTING IN BED. A/O X4. MAKES NEED KNOWN. NO SOB OR ACUTE RESPIRATORY DISTRESS NOTED. SKIN DRY AND WARM TO TOUCH. LUNGS CLEAR. ABDOMEN SOFT ROUND AND NON-TENDER. ACTIVE BOWEL SOUND. RIGHT HAND 24 G. INTACT LINE. NS INFUSING AT 10 ML/HR. TERE DIALYSIS ACCESS NOTED INTACT. SKIN INTACT. DENIES PAIN OR DIZZINESS. BED IN LOW POSITION LOCKED. WILL CONTINUE TO MONITOR.
[2018-06-28 08:00] VITALS: BP 133/61
--- NOTE | 2018-06-28 08:24 | NUR ---
PATIENT HAS BEEN SCREENED AND CATEGORIZED MODERATE NUTRITION RISK. PATIENT WILL BE SEEN WITHIN 3-5 DAYS OF ADMISSION. 06/30/18[address]
[2018-06-28] MEDS: CALCIUM CARBONATE 500 MG TAB.CHEW PO SCH ×2 (09:02→17:16)
[2018-06-28] MEDS: DOCUSATE SODIUM 100 MG GELCAP PO SCH ×2 (09:03→21:00)
[2018-06-28] MEDS: SERTRALINE 50 MG TAB PO SCH (09:03)
[2018-06-28] MEDS: amLODIPine 5 MG TAB PO SCH (09:04)
[2018-06-28] MEDS: LACTOBACILLUS RHAMNOSUS GG 1 EACH CAP PO SCH (09:14)
[2018-06-28] MEDS: RANOLAZINE 500 MG TER PO SCH ×2 (09:20→21:00)
[2018-06-28] MEDS: INSULIN NPH HUM/REG INSULIN HM 100 UNIT/ML 10 ML VIAL SUBQ SCH ×2 (09:27→20:56)
--- NOTE | 2018-06-28 09:28 | NUR ---
PT EVALUATED BY DR. ARAUJO.
[2018-06-28 12:00] VITALS: BP 114/48
[2018-06-28] MEDS: INSULIN LISPRO SLIDING SCALE 100 UNITS/ML VIAL SUBQ PRN ×3 (12:03→20:54)
--- NOTE | 2018-06-28 12:10 | NUR ---
RESTING IN BED. ALERT AWAKE. DENIES ANY N/V. DENIES DIZZINESS. VSS. IV SITE INTACT. WILL CONTINUE TO MONITOR.
--- NOTE | 2018-06-28 13:25 | NUR ---
CALLED [facility], SPOKE WITH NAWAF, STATED SHE WILL SEND A DIALYSIS NURSE TODAY. PAULA, NURSE ASSIGNED MADE AWARE.
--- NOTE | 2018-06-28 14:00 | NUR ---
RESTING IN BED. NO CHANGE IN LOC. DENIES ANY NAUSEA OR VOMITING. DENIES DIZZINESS. DENIES PAIN. WILL CONTINUE TO MONITOR.
[2018-06-28 16:00] VITALS: BP 126/58
[2018-06-28] MEDS: SEVELAMER CARBONATE 800 MG TAB PO SCH (17:16)
--- NOTE | 2018-06-28 17:31 | NUR ---
RESTING IN BED. A/O X4. DENIES ANY NAUSEA/VOMITING. STATES LITTLE DIZZY ONLY WHEN SHE STANDS. DENIES ANY PAIN. IV SITE INTACT. WILL CONTINUE TO MONITOR.
--- NOTE | 2018-06-28 19:07 | NUR ---
PT REMAINS STABLE THROUGHOUT THE SHIFT. REPORT GIVEN TO HONE OPERATOR RN.
--- NOTE | 2018-06-28 19:08 | NUR ---
RECEIVED REPORT FROM AM SHIFT NURSE. TELE MONITORING A/O X4. RESTING IN BED, ABLE TO AMBULATE, STEADY GAIT W/ STANDBY ASSIST, ROMANIAN SPEAKING ONLY. NO SOB OR ACUTE RESPIRATORY DISTRESS NOTED. SKIN DRY AND WARM TO TOUCH. LUNGS CLEAR. ABDOMEN SOFT ROUND AND NON-TENDER. ACTIVE BOWEL SOUND. RIGHT HAND 24 G. INTACT LINE. NS INFUSING AT 10 ML/HR. TERE DIALYSIS ACCESS NOTED INTACT. SKIN INTACT. WILL HAVE DIALYSIS TONIGHT. DENIES PAIN OR DIZZINESS. BED IN LOW POSITION WILL CONTINUE TO MONITOR.
[2018-06-28 20:00] VITALS: BP 137/75
[2018-06-28] MEDS: ATORVASTATIN 20 MG TAB PO SCH (21:00)
--- NOTE | 2018-06-28 21:03 | NUR ---
RANEXA, LIPITOR AND COLACE NON-ADMINISTERED, HD WILL BE COMMENCED IN AN HOUR FROM NOW PER DIALYSIS NURSE.
--- NOTE | 2018-06-28 21:30 | NUR ---
CONSENT FOR RADHA WSHARYN TRUCK TECHNICIAN ANITA NO. [id number] SIGNED BY PT
--- NOTE | 2018-06-28 21:40 | NUR ---
MEDICATIONS FOR 2100 HELD. EXCEPT FOR HE[address]IN SQ. DR. TORRES INFORMED
--- NOTE | 2018-06-28 21:44 | NUR ---
INSULIN SQ GIVEN W/ BS OF 166 MG/DL
--- NOTE | 2018-06-28 22:45 | NUR ---
STARTED HD TODAY
[2018-06-29] VITALS (9 sets, daily range): BP systolic 123–153; BP diastolic 60–90
--- NOTE | 2018-06-29 02:15 | NUR ---
STARTED HD 2245; ENDED 0215 , 2000 ML TAKEN OUT; 3 HRS AND 15 MINS.
[2018-06-29] MEDS: NACL 0.9% 1,000 ML IV SCH (03:50)
[2018-06-29 06:13] LABS: T4 (THYROXINE) 5.8 ug/dL (4.5-12.0)
[2018-06-29] MEDS: PANTOPRAZOLE 40 MG TABEC PO SCH (06:30)
[2018-06-29] MEDS: BLOOD GLUCOSE MONITORING 1 DEV DEV FS SCH ×4 (06:35→20:54)
--- NOTE | 2018-06-29 06:40 | NUR ---
PT AWAKE, ALERT ORIENTED X 4, PT NO SOB, NO C/O OF PAIN, PT RESTING IN BED, WITH SLIGHTLY HIGH BP 148/74 (MAP 1050; HR=81. WILL ENDORSE TO NEXT SHIFT
--- NOTE | 2018-06-29 07:15 | NUR ---
RECEIVED REPORT FROM BLOOD BANK LABORATORY TECHNOLOGIST RN. PT RESTING IN BED. A/O X4. MAKES NEEDS KNOWN. NO SOB OR ACUTE RESPIRATORY DISTRESS NOTED. IN ROOM AIR. SKIN DRY AND WARM TO TOUCH. LUNGS CLEAR. ABDOMEN SOFT ROUND AND NON-TENDER. ACTIVE BOWEL SOUND. RIGHT HAND 24 G. INTACT LINE. COVERED WITH DRESSING, INTACT. NS INFUSING AT 10 ML/HR. TERE DIALYSIS ACCESS NOTED INTACT. SKIN INTACT. DENIES PAIN OR DIZZINESS. DENIES NAUSEA OR VOMITING. BED IN LOW POSITION LOCKED. WILL CONTINUE TO MONITOR.
[2018-06-29 07:29] LABS: BASOPHILS % (AUTO) 0.8 % (0.0-2.0); EOSINOPHILS # (AUTO) 0.4 K/uL (0-0.4); EOSINOPHILS % (AUTO) 7.5 % (0.0-4.0); HEMATOCRIT 41.5 % (36-48); HEMOGLOBIN 13.6 g/dL (12.0-16.0); LYMPHOCYTES # (AUTO) 1.4 K/uL (2.5-16.5); LYMPHOCYTES % (AUTO) 29.9 % (20.5-51.1); MEAN CORPUSCULAR HEMOGLOBIN 27 pg (27-31); MEAN CORPUSCULAR HGB CONC 33 g/dL (33-37); MEAN CORPUSCULAR VOLUME 83.3 fL (80-94); MONOCYTES # (AUTO) 0.4 K/uL (0.8-1.0); MONOCYTES % (AUTO) 7.9 % (1.7-9.3); NEUTROPHILS # (AUTO) 2.5 K/uL (1.8-7.7); NEUTROPHILS % (AUTO) 53.9 % (42.2-75.2); PLATELET COUNT (AUTO) 225 K/uL (140-450); RED BLOOD CELL COUNT(AUTO) 4.99 MIL/uL (4.20-5.40); RED CELL DISTRIBUTION WIDTH 20.7 % (11.6-13.7); WHITE BLOOD COUNT (AUTO) 4.7 K/uL (4.8-10.8)
[2018-06-29 08:09] LABS: ANION GAP 16.6 (8-16); CARBON DIOXIDE 23.3 mmol/L (21-32); POTASSIUM 4.9 mmol/L (3.5-5.1)
[2018-06-29] MEDS: CALCIUM CARBONATE 500 MG TAB.CHEW PO SCH ×2 (08:18→16:29)
[2018-06-29] MEDS: DOCUSATE SODIUM 100 MG GELCAP PO SCH ×2 (08:19→20:58)
[2018-06-29] MEDS: SEVELAMER CARBONATE 800 MG TAB PO SCH ×3 (08:19→16:30)
[2018-06-29] MEDS: amLODIPine 5 MG TAB PO SCH (08:19)
[2018-06-29 08:20] LABS: MAGNESIUM 2.3 mg/dL (1.8-2.4); PHOSPHORUS 4.3 mg/dL (2.5-4.9)
[2018-06-29] MEDS: VIT-B COMP/VIT-C/FOLIC ACID 1 TAB PO SCH (08:21)
[2018-06-29] MEDS: SERTRALINE 50 MG TAB PO SCH (08:21)
[2018-06-29] MEDS: LACTOBACILLUS RHAMNOSUS GG 1 EACH CAP PO SCH (08:22)
[2018-06-29] MEDS: INSULIN NPH HUM/REG INSULIN HM 100 UNIT/ML 10 ML VIAL SUBQ SCH (08:29)
[2018-06-29 08:46] LABS: CREATININE 4.5 mg/dL (0.6-1.3)
[2018-06-29] MEDS: RANOLAZINE 500 MG TER PO SCH ×2 (08:48→20:56)
--- NOTE | 2018-06-29 09:03 | NUR ---
BS 113. 0900 AM HUMULIN 70-[address] METCALF AWARE[address]
[2018-06-29] MEDS: INSULIN LISPRO SLIDING SCALE 100 UNITS/ML VIAL SUBQ PRN ×2 (11:18→16:32)
--- NOTE | 2018-06-29 11:40 | NUR ---
RESTING IN BED. A/O X4. NO SOB OR ACUTE RESPIRATORY DISTRESS NOTED. DENIES NAUSEA OR VOMITING. DENIES DIZZINESS. STATES PAIN OF 0/10 AT THIS TIME. WILL CONTINUE TO MONITOR.
--- NOTE | 2018-06-29 13:51 | NUR ---
ALERT AND ORIENTED. NO CHANGE IN CONDITION. DENIES ANY PAIN OR DISTRESS. NO SOB OR RESPIRATORY DISTRESS NOTED. CONTINUE TO MONITOR.
--- NOTE | 2018-06-29 15:58 | NUR ---
RESTING IN BED COMFORTABLY. VSS. DENIES PAIN. DENIES DIZZINESS. CONTINUE TO MONITOR.
--- NOTE | 2018-06-29 18:32 | NUR ---
PT REMAINED STABLE THROUGHOUT THE SHIFT. DENIES PAIN. IV SITE INTACT. HOB ELEVATED. BED IN LOW POSITION LOCKED. CONTINUOUS MONITORING.
--- NOTE | 2018-06-29 18:35 | NUR ---
CONTACTED NAWAF FROM DIALYSIS, NOTIFIED HER WITH ORDERS FOR HD TOMORROW AT 0800 HRS.
[2018-06-29] MEDS: ONDANSETRON 4 MG/2 ML VIAL IM/IVP PRN (19:08)
--- NOTE | 2018-06-29 19:30 | NUR ---
ASSUMED CARE OF PATIENT, AWAKE, ALERT AND ORIENTED. NO COMPLAINS. FAMILY AT BEDSIDE. CALL LIGHT WITHIN REACH.
--- NOTE | 2018-06-29 19:31 | NUR ---
REPORT GIVEN TO FACIAL OPERATOR RN FOR CONTINUITY OF CARE.
--- NOTE | 2018-06-29 20:00 | NUR ---
CARE BOARD UPDATED. NO COMPLAINS. PLAN OF CARE DISCUSSED WITH PATIENT AND FAMILY MEMBER, VERBALIZED UNDERSTANDING WELL. CALL LIGHT WITHIN REACH.
[2018-06-29] MEDS: ATORVASTATIN 20 MG TAB PO SCH (20:58)
--- NOTE | 2018-06-29 21:21 | NUR ---
DUE MEDS GIVEN. HS SNACK GIVEN. NO COMPLAINS. CALL LIGHT WITHIN REACH.
[2018-06-29] MEDS ORDERED: ZOLPIDEM 5 MG TAB ONE (23:08)
--- NOTE | 2018-06-29 23:44 | NUR ---
SLEEPING NOW, VITAL SIGNS STABLE. NO COMPLAINS. CALL LIGHT WITHIN REACH.
--- NOTE | 2018-06-30 02:00 | NUR ---
ASLEEP NO COMPLAINS. CALL LIGHT WITHIN REACH.
[2018-06-30] MEDS: NACL 0.9% 1,000 ML IV SCH (03:50)
[2018-06-30 04:21] VITALS: BP 114/61
--- NOTE | 2018-06-30 04:22 | NUR ---
VITAL SIGNS STABLE. SLEEPING WELL. CALL LIGHT WITHIN REACH.
[2018-06-30] MEDS: BLOOD GLUCOSE MONITORING 1 DEV DEV FS SCH ×4 (06:03→20:36)
[2018-06-30] MEDS: PANTOPRAZOLE 40 MG TABEC PO SCH (06:04)
[2018-06-30] MEDS: INSULIN LISPRO SLIDING SCALE 100 UNITS/ML VIAL SUBQ PRN (06:09)
[2018-06-30 07:02] LABS: BASOPHILS # (AUTO) 0.1 K/uL (0.00-0.22); EOSINOPHILS # (AUTO) 0.4 K/uL (0-0.4); EOSINOPHILS % (AUTO) 6.7 % (0.0-4.0); HEMOGLOBIN 12.8 g/dL (12.0-16.0); LYMPHOCYTES # (AUTO) 2.1 K/uL (2.5-16.5); LYMPHOCYTES % (AUTO) 35.4 % (20.5-51.1); MEAN CORPUSCULAR HEMOGLOBIN 27 pg (27-31); MEAN CORPUSCULAR HGB CONC 31 g/dL (33-37); MEAN CORPUSCULAR VOLUME 84.9 fL (80-94); MONOCYTES # (AUTO) 0.5 K/uL (0.8-1.0); MONOCYTES % (AUTO) 8.4 % (1.7-9.3); NEUTROPHILS # (AUTO) 2.9 K/uL (1.8-7.7); NEUTROPHILS % (AUTO) 48.5 % (42.2-75.2); PLATELET COUNT (AUTO) 227 K/uL (140-450); RED BLOOD CELL COUNT(AUTO) 4.82 MIL/uL (4.20-5.40); RED CELL DISTRIBUTION WIDTH 20.4 % (11.6-13.7)
[2018-06-30 07:26] LABS: MAGNESIUM 2.8 mg/dL (1.8-2.4); PHOSPHORUS 5.9 mg/dL (2.5-4.9)
--- NOTE | 2018-06-30 07:36 | NUR ---
ENDORSED CARE AT BEDSIDE WITH CLOTILDE RN, PATIENT IN STABLE CONDITION.
--- NOTE | 2018-06-30 07:37 | NUR ---
RECEIVED BEDSIDE REPORT FROM RONAN MASON. PATIENT ON TELE MONITOR AND STANDARD PRECAUTIONS IN PLACE. PATIENT AAOX4 AND ON ROOM AIR, NO DISTRESS NOTED. SKIN INTACT. PATIENT AMBULATORY AND CONTINENT. IV ON R HAND 24 G INFUSING NS TKO, IV ASYMPTOMATIC PATENT AND INTACT. L UA AV SHUNT, SIGNS POSTED AT [facility] FOR NO BP/VENIPUNCTURE ON L ARM. BED IN LOW POSITION, CALL LIGHT WITHIN REACH, SIDE RAILS X 2UP
[2018-06-30 08:00] VITALS: BP 127/68
[2018-06-30 08:11] LABS: ANION GAP 19.5 (8-16); CARBON DIOXIDE 20.3 mmol/L (21-32); POTASSIUM 5.8 mmol/L (3.5-5.1)
[2018-06-30] MEDS: VIT-B COMP/VIT-C/FOLIC ACID 1 TAB PO SCH (08:59)
[2018-06-30] MEDS: amLODIPine 5 MG TAB PO SCH (09:00)
[2018-06-30] MEDS ORDERED: INSULIN NPH HUM/REG INSULIN HM 100 UNIT/ML 10 ML VIAL SUBQ SCH (09:00)
[2018-06-30] MEDS: CALCIUM CARBONATE 500 MG TAB.CHEW PO SCH ×2 (09:00→17:23)
[2018-06-30] MEDS: DOCUSATE SODIUM 100 MG GELCAP PO SCH (09:00)
[2018-06-30] MEDS: LACTOBACILLUS RHAMNOSUS GG 1 EACH CAP PO SCH (09:01)
[2018-06-30] MEDS: SEVELAMER CARBONATE 800 MG TAB PO SCH ×3 (09:01→17:22)
[2018-06-30] MEDS: SERTRALINE 50 MG TAB PO SCH (09:02)
[2018-06-30] MEDS: RANOLAZINE 500 MG TER PO SCH (09:14)
--- NOTE | 2018-06-30 09:30 | NUR ---
ADMINISTERED SCHEDULED MEDS. PATIENT TOLERATED WELL
[2018-06-30] MEDS ORDERED: NOV7030 SUBQ (11:23)
[2018-06-30] MEDS ORDERED: NITR100C7 PO (11:30)
--- NOTE | 2018-06-30 11:41 | NUR ---
PATIENT SITTING ON CHAIR, ON ROOM AIR, NO DISTRESS NOTED
[2018-06-30 12:00] VITALS: BP 132/68
--- NOTE | 2018-06-30 13:57 | NUR ---
PATIENT WATCHING TV, ON ROOM AIR, NO DISTRESS NOTED
--- NOTE | 2018-06-30 15:16 | NUR ---
PATIENT ON ROOM AIR, NO DISTRESS NOTED, WATCHING TV ON CHAIR
[2018-06-30 16:00] VITALS: BP 133/61
--- NOTE | 2018-06-30 16:15 | NUR ---
PATIENT RECEIVING DIALYSIS AT THIS TIME, DIALYSIS NURSE AT BEDSIDE
[2018-06-30] MEDS: ONDANSETRON 4 MG/2 ML VIAL IM/IVP PRN (16:41)
--- NOTE | 2018-06-30 16:47 | NUR ---
ADMINISTERED ZOFRAN PRN FOR NAUSEA
--- NOTE | 2018-06-30 17:24 | NUR ---
ADMINISTERED SCHEDULED MEDS. PATIENT TOLERATED WELL
--- NOTE | 2018-06-30 19:32 | NUR ---
BEDSIDE REPORT GIVEN TO RONAN HERNANDEZ. PATIENT ENDORSED IN STABLE CONDITION, CURRENTLY HAVING DIALYSIS, ENDORSED SHE WILL BE DISCHARGED AFTER IT IS FINISHED
--- NOTE | 2018-06-30 19:33 | NUR ---
RECEIVED BEDSIDE REPORT FROM DAY SHIFT. PT IS AAOX4. ON ROOM AIR. RESPIRATIONS ARE EQUAL AND UNLABORED. PT WITH L UPPER FISTULA GETTING HD CURRENTLY PT WILL BE D/C ONCE IT COMPLETE. PER HEMODIALYSIS NURSE WILL FINISH IN 20MIN. WILL PRINT D/C PACKET. SKIN INTACT. PT IS AMBULATORY. IV ON R HAND 20G IVF TKO. PLAN OF CARE DISCUSSED WILL CONTINUE TO MONITOR.
[2018-06-30 20:00] VITALS: BP 134/60
--- NOTE | 2018-06-30 20:22 | NUR ---
VITAL SIGNS ARE WITHIN NORMAL LIMITS. BLOOD GLUCOSE 132. HD COMPLETE. D/C INSTRUCTIONS GIVEN. PT SIGN DISCHARGE PAPERS. WILL ASSIST WITH GETTING READY. ALL QUESTIONS AND CONCERNS ANSWERED. Addendum: 06/30/18 at 2130 by Dayna Mays RN HD REMOVED 2.5L LASTED 3.5 HRS VS: 134/60,79,98% NO PAIN. TEMP 97.8
--- NOTE | 2018-06-30 20:53 | NUR ---
IV REMOVED IV CATH INTACT. ARM BANDS REMOVED. ALL D/C INSTRUCTIONS WITH PATIENT. PT WHEELED OUT IN STABLE CONDITION.
[2018-06-30] MEDS ORDERED: ZOLPIDEM 5 MG TAB PO PRN (21:00)
== END 2018-06-30 20:53 | disposition home or self-care (01) | DRG 73 ==
LOC: MED 23:55 → MTU 06-28 03:53 → MED 06-28 03:55
PROVIDERS: ADMIT General Practice; ATTEND General Practice
PROC: 5A1D70Z Performance of Urinary Filtration, Intermittent, Less than 6 Hours Per Day (ICD-10-PCS; principal; 2018-06-28)
PROC: 5A1D70Z Performance of Urinary Filtration, Intermittent, Less than 6 Hours Per Day (ICD-10-PCS; 2018-06-30)
DX: G90.8 Other disorders of autonomic nervous system (principal); N17.0 Acute kidney failure with tubular necrosis; N18.6 End stage renal disease; I12.0 Hypertensive chronic kidney disease with stage 5 chronic kidney disease or end stage renal disease; D68.59 Other primary thrombophilia; N39.0 Urinary tract infection, site not specified; I95.9 Hypotension, unspecified; E11.649 Type 2 diabetes mellitus with hypoglycemia without coma; E11.65 Type 2 diabetes mellitus with hyperglycemia; E87.6 Hypokalemia; E83.39 Other disorders of phosphorus metabolism; E83.41 Hypermagnesemia; K21.9 Gastro-esophageal reflux disease without esophagitis; E11.22 Type 2 diabetes mellitus with diabetic chronic kidney disease; E11.51 Type 2 diabetes mellitus with diabetic peripheral angiopathy without gangrene; E78.5 Hyperlipidemia, unspecified; F32.9 Major depressive disorder, single episode, unspecified; I25.10 Atherosclerotic heart disease of native coronary artery without angina pectoris; I25.2 Old myocardial infarction; Z99.2 Dependence on renal dialysis; Z90.49 Acquired absence of other specified parts of digestive tract; Z95.1 Presence of aortocoronary bypass graft; Z95.5 Presence of coronary angioplasty implant and graft; Z88.8 Allergy status to other drugs, medicaments and biological substances; Z86.73 Personal history of transient ischemic attack (TIA), and cerebral infarction without residual deficits
CPT/HCPCS: 36415; 70450; 71045; 76604; 80048; 80053; 80305; 81001; 82150; 82948; 83036; 83605; 83690; 83735; 83880; 84100; 84436; 84443; 84479; 84484; 85025; 85610; 85730; 87081; 87086; 87186; 90935; 93005; 93880; 93925; 97110; 97116; 97161-GP; 97530; 99284; 99285; J0696; J1644; J1815; J2405; J7030; J7060; J8597; Q0092

== ENCOUNTER 2019-02-17 20:27 | Inpatient (IN) | payer OTHER ==
[~2019-02-17] VITALS: Ht 160 cm; Wt 83.9 kg
[~2019-02-17 20:27] MED LIST changes: +AMLO5TAB PO; -AMLO5TAB6 PO; -HUM7030 SUBQ; -LEVO750T2 PO; +NITR100C7 PO; +NOV7030 SUBQ; -ONDA2SOL45 IVP
[2019-02-17 20:30] VITALS: BP 204/98
--- NOTE | 2019-02-17 20:30 | NUR ---
PT W/C ASSISTED TO ER BED 8
--- NOTE | 2019-02-17 20:30 | NUR ---
PATIENT TAKEN TO BED 8 AND PUT ON O2, SATURATION IMPROVED TO 96% ON 4 L NC
--- NOTE | 2019-02-17 20:30 | NUR ---
PT BIB [facility] FOR C/O SOB X 1 HOUR. PT AXO X 4. RESPIRATIONS ARE EVEN AND UNLABORED. PT ON NC 3L/MIN RUNNING. O2SAT @ 99%. PT HAS AV SHUNT IN LEFT ARM. "I FELT LIKE I HAD ALOT OF WATER IN ME AND I COULDN'T BREATH." PT HX OF CARDIAC SURGERY X 1 YEAR AGO. SKIN IS WARM AND DRY TO TOUCH. PT NOTED WITH L FOOT PITTING EDEMA +1. 5/10 C/O OF CHEST PAIN NON RADIATING. PT RESTING IN BED LOCKED IN LOWEST POSITION. FAMILY AT BEDSIDE. HX: RENAL FAILURE , DM TYPE 2, HTN ALLERGIES: PROTAMINE
[2019-02-17] MEDS ORDERED: SODIUM CHLORIDE FLUSH 10 ML SYR IVF STA (20:34)
[2019-02-17] MEDS ORDERED: FUROSEMIDE 40 MG/4 ML VIAL IVP ONE (20:40)
[2019-02-17] MEDS ORDERED: ALBUTEROL SULFATE/IPRATROPIU 3 ML SOL IH ONE (20:40)
--- NOTE | 2019-02-17 21:20 | NUR ---
LAB AT BEDSIDE.
--- NOTE | 2019-02-17 21:22 | NUR ---
EKG PERFORMED AT BEDSIDE
--- NOTE | 2019-02-17 21:29 | NUR ---
PTS GRANDSON LARISSA STATES HE WANTS CALL WITH UPDATE ON GRANDMOTHER. LARISSA: [phone]
--- NOTE | 2019-02-17 21:41 | NUR ---
PT STATES HER CHEST PAIN IS 0/10. NC RUNNING CONTINOUSLY AT 3L/MIN. O2SAT @ 99%. RESPIRATIONS ARE EVEN AND UNLABORED. BED IN LOWEST POSITION AND LOCKED IN PLACE.
[2019-02-17 22:16] LABS: BASOPHILS % (AUTO) 0.6 % (0.0-2.0); EOSINOPHILS # (AUTO) 0.3 K/uL (0-0.4); EOSINOPHILS % (AUTO) 4.1 % (0.0-4.0); HEMATOCRIT 38.5 % (36-48); LYMPHOCYTES # (AUTO) 2.4 K/uL (2.5-16.5); LYMPHOCYTES % (AUTO) 31.5 % (20.5-51.1); MEAN CORPUSCULAR HEMOGLOBIN 29 pg (27-31); MEAN CORPUSCULAR HGB CONC 31 g/dL (33-37); MEAN CORPUSCULAR VOLUME 91.8 fL (80-94); MONOCYTES # (AUTO) 0.4 K/uL (0.8-1.0); MONOCYTES % (AUTO) 4.7 % (1.7-9.3); NEUTROPHILS # (AUTO) 4.5 K/uL (1.8-7.7); NEUTROPHILS % (AUTO) 59.1 % (42.2-75.2); PLATELET COUNT (AUTO) 201 K/uL (140-450); RED BLOOD CELL COUNT(AUTO) 4.19 MIL/uL (4.20-5.40); RED CELL DISTRIBUTION WIDTH 17.4 % (11.6-13.7); WHITE BLOOD COUNT (AUTO) 7.6 K/uL (4.8-10.8)
[2019-02-17 22:54] LABS: APPEARANCE,URINE CLEAR (CLEAR); BILIRUBIN,URINE NEGATIVE (NEGATIVE); BLOOD, URINE TRACE-L (NEGATIVE); COLOR,URINE YELLOW (YELLOW); LEUKOCYTE ESTERASE ,URINE 1+ (NEGATIVE); NITRITE, URINE NEGATIVE (NEGATIVE); PH,URINE 8.5 (5.0-9.0); UGLUCOSE 3+ (NEGATIVE)
[2019-02-17 23:35] LABS: ALBUMIN 3.6 g/dL (3.4-5.0); ANION GAP 17.4 (8-16); CARBON DIOXIDE 28.4 mmol/L (21-32); POTASSIUM 5.8 mmol/L (3.5-5.1); TOTAL BILIRUBIN 0.3 mg/dL (0.0-1.0)
--- NOTE | 2019-02-17 23:41 | NUR ---
PT RESTING IN BED EYES CLOSED. RESPIRATIONS ARE EVEN AND UNLABORED. SKIN IS WARM AND DRY TO TOUCH. NC IN PLACE AND RUNNING CONTINOUS AT 3L/MIN. O2SAT @ 98%. PT BED IN LOWEST POSITION AND LOCKED IN PLACE.
[2019-02-17 23:47] LABS: CREATININE 8.4 mg/dL (0.6-1.3)
[2019-02-18 00:04] LABS: RBC,URINE 0-5 /HPF (0-5)
[2019-02-18] MEDS ORDERED: DEXTROSE 50% 50 ML SYR IVP ONE (00:10)
[2019-02-18] MEDS ORDERED: SODIUM POLYSTYRENE 15 GM/60 ML UDBTL PO ONE (00:10)
[2019-02-18] MEDS ORDERED: INSULIN REGULAR, HUMAN 100 UNIT/ML VIAL SUBQ ONE (00:10)
--- NOTE | 2019-02-18 00:30 | NUR ---
PT ASSISTED WITH AMBULATING TO RESTROOM. PT HAD NO C/O DIZZINESS, OR SOB. PT AMBULATED WITH ASSISTANCE BACK TO BED. BED LOCKED IN LOWEST POSITION.
[2019-02-18] MEDS ORDERED: CLOP75TA26 PO (00:33)
[2019-02-18] MEDS ORDERED: ASPI-1205 PO ×2 (00:33→03:33)
--- NOTE | 2019-02-18 01:30 | NUR ---
REPORT GIVEN TO NONA FERRARO. PT AXO X 4 RESPIRATIONS ARE EVEN AND UNLABORED. SKIN IS WARM AND DRY TO TOUCH. 0/10 PAIN.
[2019-02-18] MEDS ORDERED: cefTRIAXone 1,000 MG VIAL ONE (01:40)
[2019-02-18] MEDS ORDERED: NACL 0.9% 1,000 ML IV SCH (01:46)
[2019-02-18] MEDS ORDERED: ACETAMINOPHEN 325 MG TAB PO PRN (01:50)
[2019-02-18] MEDS ORDERED: HYDROcodone/APAP 7.5/325 MG 1 TAB PO PRN (01:50)
--- NOTE | 2019-02-18 02:10 | NUR ---
RECEIVED BEDSIDE REPORT FROM ED RN FOR PT'S CONTINUITY OF CARE. PT IS AAOX4, PRIMARILY IT[place] SPEAKING, IS ON STAFF ASSISTANT, ON 3L O2 VIA NC, DENIES ANY PAIN AT THIS TIME. EXPLAINED TO PT THE TRACER CLERK ROUTINE, PT VERBALIZED UNDERSTANDING. SAFETY MEASURE IN PLACE, AND CALL LIGHT IS WITHIN REACH. WILL MONITOR PT THROUGHOUT SHIFT.
[2019-02-18 02:12] LABS: BARBITURATE, URINE NEG. ng/ml (NEG <=200); BENZODIAZEPINE, URINE NEG. ng/mL (NEG <=200); CANNABINOID, URINE NEG. ng/mL (NEG <=50); COCAINE, URINE NEG. ng/mL (NEG <=300); OPIATE, URINE NEG. ng/mL (NEG <=2000); PHENCYCLIDINE SCREEN,URINE NEG. ng/mL (NEG <=25)
--- NOTE | 2019-02-18 02:20 | NUR ---
PATIENT TAKEN TO THE FLOOR ON MONITOR IN [facility]. ESCORTED BY EMT AND RN. REPORT GIVEN TO TELE NURSE IN ROOM 117. PATIENT STABLE DURING TRANSPORT
[2019-02-18 02:22] LABS: MAGNESIUM 3.2 mg/dL (1.8-2.4); PHOSPHORUS 5.3 mg/dL (2.5-4.9); THYROID STIMULATING HORMONE 2.52 uIU/mL (0.34-3.74)
[2019-02-18 02:24] LABS: PROTHROMBIN TIME 9.9 secs (10.8-13.4)
[2019-02-18 02:27] VITALS: BP 161/72
--- NOTE | 2019-02-18 03:01 | NUR ---
ADMINISTERED SCHEDULED IVF ORDERED. PT VITAL SIGNS TAKEN ON LEFT CALF. PT HAS BILATERAL UPPER ARM AV SHUNT, LEFT AV SHUNT CURRENTLY USED FOR DIALYSIS. PT SCHEDULED DIALYSIS MWF. NEPHRO CONSULT IN PLACE. AWARE.
[2019-02-18] MEDS ORDERED: DEXTROSE 50% 50 ML SYR IVP PRN (03:10)
[2019-02-18 04:00] VITALS: BP 141/60
[2019-02-18] MEDS ORDERED: hydrALAZINE 20 MG/ML VIAL IVP PRN (04:00)
[2019-02-18] MEDS ORDERED: AMLO5TAB PO (04:00)
--- NOTE | 2019-02-18 05:00 | NUR ---
PT LYING DOWN ASLEEP WITH NO SIGNS OF DISTRESS. WILL CONTINUE TO MONITOR PT.
[2019-02-18] MEDS: BLOOD GLUCOSE MONITORING 1 DEV DEV FS SCH ×4 (06:30→21:09)
--- NOTE | 2019-02-18 06:30 | NUR ---
BLOOD GLUCOSE CHECKED AND CHARTED. PT DENIES ANY PAIN AT THIS TIME. NO COVERAGE NEEDED. CALLED AND INFORMED STEAM FITTER MCCRACKEN, FOR DIALYSIS SCHEDULE TODAY, AFTER NEPHRO CONSULT. PER MCCRACKEN, PLS CALL HER AFTER ORDER HAS BEEN PUT IN. WILL ENDORSE TO AM SHIFT RN FOR PT'S CONTINUITY OF CARE.
[2019-02-18 07:13] LABS: BASOPHILS % (AUTO) 0.6 % (0.0-2.0); EOSINOPHILS # (AUTO) 0.2 K/uL (0-0.4); EOSINOPHILS % (AUTO) 3.7 % (0.0-4.0); HEMATOCRIT 35.2 % (36-48); LYMPHOCYTES # (AUTO) 1.5 K/uL (2.5-16.5); LYMPHOCYTES % (AUTO) 24.1 % (20.5-51.1); MEAN CORPUSCULAR HEMOGLOBIN 29 pg (27-31); MEAN CORPUSCULAR HGB CONC 31 g/dL (33-37); MEAN CORPUSCULAR VOLUME 91.6 fL (80-94); MONOCYTES # (AUTO) 0.4 K/uL (0.8-1.0); MONOCYTES % (AUTO) 7.3 % (1.7-9.3); NEUTROPHILS # (AUTO) 3.9 K/uL (1.8-7.7); NEUTROPHILS % (AUTO) 64.3 % (42.2-75.2); PLATELET COUNT (AUTO) 190 K/uL (140-450); RED BLOOD CELL COUNT(AUTO) 3.85 MIL/uL (4.20-5.40); RED CELL DISTRIBUTION WIDTH 16.5 % (11.6-13.7); WHITE BLOOD COUNT (AUTO) 6.1 K/uL (4.8-10.8)
[2019-02-18 07:20] LABS: CHOL/HDL RATIO 3.2 (1-4.5)
--- NOTE | 2019-02-18 07:20 | NUR ---
RECEIVED BEDSIDE REPORT FROM MATERIAL HAULER NURSE FABIAN. PT IS AWAKE IN BED WATCHING TV, NO S/S OF DISTRESS, NO SOB. ON 1.5 L O2 NC. SKIN INTACT. IV SITE R WRIST 22 G, INFUSING NS 10 ML/HR. AV SHUNTS NOTED ON BOTH UPPER ARMS, THE L AV SHUNT IS USED FOR HD. FALL PRECAUTIONS IN PLACE. PER MATERIAL HAULER RN, PT WILL BE HAVING DIALYSIS TODAY. CALL LIGHT IS WITHIN REACH. WILL CONTINUE TO MONITOR.
[2019-02-18 07:23] LABS: ANION GAP 14.2 (8-16); POTASSIUM 5.2 mmol/L (3.5-5.1)
[2019-02-18 08:00] VITALS: BP 131/55
--- NOTE | 2019-02-18 08:18 | NUR ---
NAWAF, DIALYSIS NURSE, NOTIFIED OF ORDER FOR HEMODIALYSIS FOR TODAY.
[2019-02-18 08:29] LABS: CREATININE 8.9 mg/dL (0.6-1.3)
--- NOTE | 2019-02-18 08:37 | NUR ---
PATIENT HAS BEEN SCREENED AND CATEGORIZED MODERATE NUTRITION RISK. PATIENT WILL BE SEEN WITHIN 3-5 DAYS OF ADMISSION. 02/20/19 02/22/[address]
[2019-02-18] MEDS: amLODIPine 5 MG TAB PO SCH (09:00)
[2019-02-18] MEDS ORDERED: FUROSEMIDE 20 MG/2 ML VIAL IVP SCH (09:00)
[2019-02-18] MEDS: ASPIRIN 81 MG TAB.CHEW PO SCH (09:20)
[2019-02-18] MEDS: CLOPIDOGREL 75 MG TAB PO SCH (09:20)
[2019-02-18] MEDS: DOCUSATE SODIUM 100 MG GELCAP PO SCH ×2 (09:20→21:10)
[2019-02-18] MEDS: FAMOTIDINE 20 MG TAB PO SCH (09:20)
--- NOTE | 2019-02-18 09:30 | NUR ---
AM MEDS ADMINISTERED, PT TOLERATED WELL. HELD THE BP MED BECAUSE PT WILL BE HAVING DIALYSIS TODAY.
--- NOTE | 2019-02-18 09:36 | NUR ---
OBTAINED PT CONSENT FOR HEMODIALYSIS.
[2019-02-18] MEDS: INSULIN NPH HUM/REG INSULIN HM 100 UNIT/ML 10 ML VIAL SUBQ SCH (09:38)
--- NOTE | 2019-02-18 09:44 | NUR ---
PT STARTING DIALYSIS AT THIS TIME.
--- NOTE | 2019-02-18 11:00 | NUR ---
DC PLANN[age] YRS OLD FEMALE PATIENT WAS ADMITTED FROM HOME WITH A DX OF ESRD, HYPERKALEMIA AND CHF . PT HAS A HX OF DM, HTN AND ESRD, HEMODIALYSIS ON MWF. CONSULTED INSURANCE CLAIMS ADJUSTER WITH DR OAKES ,ADMINISTERED BREATHING TREATMENT , 40 MG IV LASIX , ROCEPHIN FOR UTI , PT HAD HEMODIALYSIS , STABLE AND MUCH IMPROVED . DC PLAN TO GO HOME WITH PRESCRIPTION AND FOLLOW UP WITH PCP AND NEPHROLOGY . PT CAN CONTINUE HD ON THURSDAY SCHEDULE OUT PATIENT.
[2019-02-18 12:00] VITALS: BP 169/76
[2019-02-18] MEDS: INSULIN LISPRO SLIDING SCALE 100 UNITS/ML VIAL SUBQ PRN ×2 (12:12→21:21)
--- NOTE | 2019-02-18 13:00 | NUR ---
DIALYSIS IS FINISHED. REMOVED 3.5 L OF FLUID.
--- NOTE | 2019-02-18 13:27 | NUR ---
DOMINIK Assessment/Discharge Plan High Risk DC Screen Yes Name: [facility] Relationship: son Pre-Admission Living Arrangements: Lives with Other Other: : Francis Prior ADL Independent Current Home Health Name/Tel: N/A Current DME/02 Name/Tel: prn home O2 (concentrator and portable) Current Hospice Name/Tel: N/A Current Dialysis Name/Tel: [facility] MWF 7:30am Healthcare Decision Maker: Patient Advance Directive No Information Taught: Advance Directive Community Resources Person Taught: Patient Teaching Tools: Community Resources Computer Generated Print Verbal Factors Affecting Learning: None Participation Level: Active Evaluation: Gestures Understanding Verbalizes Understanding Educator: DOMINIK Gould Discipline: Case Mgt/Social Svcs Tentative Discharge Plan Summary: Patient is a 63 year old female admitted for ESRD, hyperkalemia, and CHF. I met with patient at bedside. Patient alert and oriented x4. Patient speaks Croatian. Patient lives at home with her Francis Cordova and 2 grandchildren. She plans to return home upon discharge. Patient's pcp is Selvin Leigh and she does not have any difficulty filling her prescriptions at pharmacy. Patient's brother Ammon Cabello takes patient to dialysis center. She stated she thinks she has been experiencing ongoin anxiety. She is not taking medication for anxiety or receiving counseling/mental health services. I provided her with education on [facility], www.[facility].org for community resources including counseling/mental health services. She denied alcohol/substance abuse. She stated one of her brothers recently. I provided her with counseling services. She does not have any questions/concerns at this time. Tuckpointer Cleaner Caulker and/or Conference Producer will follow up as needed. Signature: DOMINIK Gould Date: Feb 18, 2019
[2019-02-18 16:00] VITALS: BP 151/88
[2019-02-18] MEDS: ONDANSETRON 4 MG/2 ML VIAL IVP PRN (17:49)
--- NOTE | 2019-02-18 18:32 | NUR ---
PT'S IV HAS INFILTRATED. WILL ATTEMPT TO START ANOTHER IV.
--- NOTE | 2019-02-18 19:20 | NUR ---
ENDORSED PT TO STUDENT LOAN COUNSELOR NURSE IN STABLE CONDITION
--- NOTE | 2019-02-18 19:21 | NUR ---
RECEIVED BEDSIDE REPORT FROM AM SHIFT NURSE OSMAR PT IS AWAKE IN BED WATCHING TV, NO S/S OF DISTRESS, NO SOB. ON 1.5 L O2 NC. SKIN INTACT. NO IV SIT RECEIVED. AV SHUNTS NOTED ON BOTH UPPER ARMS, THE L AV SHUNT IS USED FOR HD. FALL PRECAUTIONS IN PLACE.DIALYSIS DONE THIS PM (f). CALL LIGHT IS WITHIN REACH. WILL CONTINUE TO MONITOR.
[2019-02-18 20:00] VITALS: BP 117/63
[2019-02-18] MEDS ORDERED: ATORVASTATIN 20 MG TAB PO SCH (21:00)
--- NOTE | 2019-02-18 21:36 | NUR ---
ATTEMPTED W/ IV INSERTION, FAILED X 1. EARLIER PER AM SHIFT THEY TRIED 2X
[2019-02-19] VITALS: BP 120/67
--- NOTE | 2019-02-19 02:00 | NUR ---
PT SLEEPING COMFORTABLY, CHECKED ON PT FREQUENTLY
--- NOTE | 2019-02-19 04:00 | NUR ---
PT WENT TO THE BATHROOM, WITH STEADY GAIT. Addendum: 02/19/19 at 0653 by Jessica Tobin RN VOIDED; NO LOOSE STOOLS NOR ANY BM ON THIS SHIFT PER PATIENT
--- NOTE | 2019-02-19 04:26 | NUR ---
CHECKED ON PT SLEEPING; NO COMPLAINTS AT THIS TIME. PT IN STABLE CONDITION
[2019-02-19 06:00] VITALS: BP 139/54
--- NOTE | 2019-02-19 06:30 | NUR ---
PT CLAUS ALERT ORIENTED; AMBULATORY; PT IN STABLE CONDITION ENDORSED TO NEXT SHIFT
--- NOTE | 2019-02-19 06:30 | NUR ---
DR. PURCELL AT BEDSIDE EXPLAINED THE PROCEDURE; PT SIGNED CONSENT SIGNED. CONSENT ATTACHED TO CHART Addendum: 02/19/19 at 0810 by Jessica Tobin RN [facility]
[2019-02-19] MEDS: BLOOD GLUCOSE MONITORING 1 DEV DEV FS SCH (06:36)
[2019-02-19] MEDS: INSULIN LISPRO SLIDING SCALE 100 UNITS/ML VIAL SUBQ PRN (06:48)
--- NOTE | 2019-02-19 06:49 | NUR ---
PT WHEELED FROM TELE TO THE OR BY THE OR NURSE VIA RICO Addendum: 02/19/19 at 0810 by Jessica Tobin RN [facility]
--- NOTE | 2019-02-19 07:15 | NUR ---
RECEIVE REPORT FROM NIGHT NURSE. PT IS SITTING ON SIDE OF THE BED, PT IS STABLE NO SIGNS OF DISTRESS NOTED, SAFETY MEASURES IN PLACE, CALL LIGHT WITHIN REACH.
[2019-02-19 08:00] VITALS: BP 126/61
--- NOTE | 2019-02-19 09:30 | NUR ---
GAVE PT ORDERED MEDICATION, EDUCATION GIVE, PT TOLERATED WELL, PT IS STABLE, NO SIGNS OF DISTRESS NOTED, PT SITTING IN CHAIR.
[2019-02-19] MEDS: INSULIN NPH HUM/REG INSULIN HM 100 UNIT/ML 10 ML VIAL SUBQ SCH (09:35)
[2019-02-19] MEDS: CLOPIDOGREL 75 MG TAB PO SCH (09:36)
[2019-02-19] MEDS: FAMOTIDINE 20 MG TAB PO SCH (09:36)
[2019-02-19] MEDS: ASPIRIN 81 MG TAB.CHEW PO SCH (09:37)
[2019-02-19] MEDS: amLODIPine 5 MG TAB PO SCH (09:37)
[2019-02-19] MEDS: DOCUSATE SODIUM 100 MG GELCAP PO SCH (09:37)
[2019-02-19] MEDS ORDERED: AMLO5TAB PO (10:19)
[2019-02-19] MEDS ORDERED: CLOP75TA26 PO (10:19)
[2019-02-19] MEDS: ONDANSETRON 4 MG/2 ML VIAL IVP PRN (11:19)
--- NOTE | 2019-02-19 11:27 | NUR ---
GAVE PT ZOFRAN FOR NAUSEA. PT TOLERATED WELL. PT RESTING IN BED, CALL LIGHT WITHIN REACH.
--- NOTE | 2019-02-19 12:20 | NUR ---
PT DISCHARGED. PT AMBULATED TO THE FRONT ENTRANCE. PT WALKED STEADLY TO THE DOOR. PT IV TAKEN OUT PRIOR TO DISCHARGE. IV WAS INTACT.
== END 2019-02-19 12:15 | disposition home or self-care (01) | DRG 291 ==
LOC: MED 20:27 → MTU 02-18 01:50
PROVIDERS: ADMIT General Practice; ATTEND General Practice
PROC: 5A1D70Z Performance of Urinary Filtration, Intermittent, Less than 6 Hours Per Day (ICD-10-PCS; principal; 2019-02-19)
DX: I13.2 Hypertensive heart and chronic kidney disease with heart failure and with stage 5 chronic kidney disease, or end stage renal disease (principal); N17.0 Acute kidney failure with tubular necrosis; I50.43 Acute on chronic combined systolic (congestive) and diastolic (congestive) heart failure; J96.01 Acute respiratory failure with hypoxia; N18.6 End stage renal disease; N39.0 Urinary tract infection, site not specified; I16.1 Hypertensive emergency; E11.22 Type 2 diabetes mellitus with diabetic chronic kidney disease; E78.5 Hyperlipidemia, unspecified; E87.5 Hyperkalemia; I25.10 Atherosclerotic heart disease of native coronary artery without angina pectoris; I50.9 Heart failure, unspecified; K21.9 Gastro-esophageal reflux disease without esophagitis; E87.70 Fluid overload, unspecified; E11.65 Type 2 diabetes mellitus with hyperglycemia; Z99.2 Dependence on renal dialysis; Z86.73 Personal history of transient ischemic attack (TIA), and cerebral infarction without residual deficits; Z95.5 Presence of coronary angioplasty implant and graft; Z88.8 Allergy status to other drugs, medicaments and biological substances; Z95.1 Presence of aortocoronary bypass graft
CPT/HCPCS: 36415; 36600; 71045; 80048; 80053; 80305; 81001; 82803; 82948; 83036; 83605; 83735; 83880; 84100; 84443; 84484; 85025; 85610; 85730; 87040; 87081; 87086; 93005; 94640; 96365; 96372; 96375; 99285; J0696; J1644; J1815; J1940; J2405; J7030; J7060; J7620

== ENCOUNTER 2020-01-25 02:43 | Emergency (ER) | payer OTHER ==
[~2020-01-25] VITALS: Ht 154.9 cm; Wt 72.6 kg
[2020-01-25 02:43] VITALS: BP 148/57
[~2020-01-25 02:43] MED LIST changes: -ALBU3SOL83 IH; +ASPI-1205 PO; -CALC200T38 PO; +CLOP75TA26 PO; -DOCU-299 PO; -INUL1CTB PO; -NITR100C7 PO; -NITR1PAT TD; -PANT40EC28 PO; -RANEX500 PO; -SERT-146 PO
--- NOTE | 2020-01-25 02:43 | NUR ---
PT BIBA BLS. TAKEN TO BED 9
--- NOTE | 2020-01-25 03:13 | NUR ---
Dr. Johnson examining patient.
[2020-01-25] MEDS ORDERED: NITROGLYCERIN 0.4 MG TAB SL ONE (03:25)
[2020-01-25] MEDS ORDERED: ALBUTEROL HFA MDI 90 MCG/ACTUATION 8 GM INH ONE (04:00)
[2020-01-25] MEDS ORDERED: ASPIRIN 325 MG TABEC PO SCH ×2 (04:20→09:00)
--- NOTE | 2020-01-25 04:26 | NUR ---
ekg performed at bedside. ekg reads sinus rhythm @ 78
--- NOTE | 2020-01-25 04:26 | NUR ---
PT WOKE UP THIS MORNING WITH C/O STERNAL C/P RADIATING INTO HER BACK, ALSO HAVING SOB. PT STATES THE PAIN WAS A 9/10, SHE TOOK TYLENOL AND THAT HELP SOME WITH THE PAIN, NOW HAS 5/10. LUNG SOUNDS CLEAR, AFEBRILE, SKIN WARM AND DRY, CAP REFILL LESS THEN 3 SEC. O2 SAT ON 2L N/C 100%. DENIES N/V. PT PLACED ON BEDSIDE MONITOR, BED IN LOWEST POSITION AND SIDERAIL UP X 1. ALLERGIES - PROAMINE HX - CABG, CAD, CVA, DM, GERD, HTN, RENAL DZ (DIALYSIS)
[2020-01-25] MEDS ORDERED: ECOTRIN 81 MG TABEC PO ONE (04:37)
--- NOTE | 2020-01-25 04:43 | NUR ---
RESPIRATORY AT BEDSIDE ADMINSTERING BREATHING TREATMENT
--- NOTE | 2020-01-25 05:18 | NUR ---
MAYNOR SWAB COLLECTED AND TAKEN TO LAB
--- NOTE | 2020-01-25 06:18 | NUR ---
IV LINE STARTED BY KARLY FERRARO, ONLY ABLE TO GET 3 TUBES FOR LAB. TUBES WALKED TO LAB
[2020-01-25 06:30] LABS: BASOPHILS # (AUTO) 0.1 K/uL (0.00-0.22); BASOPHILS % (AUTO) 0.6 % (0.0-2.0); EOSINOPHILS # (AUTO) 0.1 K/uL (0-0.4); EOSINOPHILS % (AUTO) 1.7 % (0.0-4.0); HEMATOCRIT 31.3 % (36-48); HEMOGLOBIN 10.2 g/dL (12.0-16.0); LYMPHOCYTES # (AUTO) 1.3 K/uL (2.5-16.5); LYMPHOCYTES % (AUTO) 16.6 % (20.5-51.1); MEAN CORPUSCULAR HEMOGLOBIN 30 pg (27-31); MEAN CORPUSCULAR HGB CONC 33 g/dL (33-37); MEAN CORPUSCULAR VOLUME 90.6 fL (80-94); MONOCYTES # (AUTO) 0.5 K/uL (0.8-1.0); MONOCYTES % (AUTO) 6.3 % (1.7-9.3); NEUTROPHILS % (AUTO) 74.8 % (42.2-75.2); PLATELET COUNT (AUTO) 169 K/uL (140-450); RED BLOOD CELL COUNT(AUTO) 3.46 MIL/uL (4.20-5.40); RED CELL DISTRIBUTION WIDTH 13.8 % (11.6-13.7)
[2020-01-25] MEDS ORDERED: AZITHROMYCIN 500 MG in DEXTROSE 5% 250 ML IV ONE (06:40)
[2020-01-25] MEDS ORDERED: cefTRIAXone 1,000 MG VIAL ONE ×2 (06:46→07:02)
[2020-01-25 06:56] LABS: ALBUMIN 3.5 g/dL (3.4-5.0); ANION GAP 20.2 (8-16); CARBON DIOXIDE 24.8 mmol/L (21-32); TOTAL BILIRUBIN 0.2 mg/dL (0.0-1.0)
[2020-01-25] MEDS ORDERED: AZITHROMYCIN 250 MG TAB PO ONE (07:00)
[2020-01-25] MEDS ORDERED: cefTRIAXone 1,000 MG in LIDOCAINE MPF 1% 2.1 ML IM ONE (07:00)
[2020-01-25 07:01] LABS: CREATININE 8.1 mg/dL (0.6-1.3)
[2020-01-25] MEDS ORDERED: LIDOCAINE MPF 1% 5 ML ONE (07:02)
[2020-01-25 07:21] LABS: C-REACTIVE PROTEIN QUANT 1.9 mg/dL (0.0-0.9)
--- NOTE | 2020-01-25 07:42 | NUR ---
RECEIVED REPORT FROM RONAN OSWALD FOR CONTINUATION OF CARE.
[2020-01-25 09:55] VITALS: BP 145/65
--- NOTE | 2020-01-25 10:54 | NUR ---
Patient discharged with v/s stable. Written and verbal after care instructions given and explained. Patient alert, oriented and verbalized understanding of instructions. Ambulatory with steady gait. All questions addressed prior to discharge. ID band removed. Patient advised to follow up with PMD.
== END 2020-01-25 09:55 | disposition home or self-care (01) ==
LOC: MED 02:43
DX: U07.1 COVID-19 (principal); E11.9 Type 2 diabetes mellitus without complications; I51.9 Heart disease, unspecified; I10 Essential (primary) hypertension; I63.9 Cerebral infarction, unspecified; K21.9 Gastro-esophageal reflux disease without esophagitis; R06.00 Dyspnea, unspecified; Z88.5 Allergy status to narcotic agent; Z79.899 Other long term (current) drug therapy
CPT/HCPCS: 36415; 36600; 71045; 80053; 82803; 83690; 83880; 84484; 85025; 86140; 87426; 93005; 96372; 99285; J0696; J2001